=== PATIENT | male | born 1935 | race Hispanic/Latino ===

== ENCOUNTER 2018-12-30 22:24 | Inpatient (IN) | payer MEDICARE ==
[2018-12-30 23:09] LABS: BASO % 0.2 % (0.0-2.0); EOS # 0.1 K/uL (0.0-0.7); EOS % 1.4 % (0.0-4.0); HEMOGLOBIN 13.8 g/dL (12.0-18.0); LYMPH # 0.4 K/uL (1.0-4.3); LYMPH % 4.6 % (20.0-40.0); MEAN CELL VOLUME 92.6 fL (80.0-94.0); MEAN CORPUSCULAR HEMOGLOBIN 30.7 pg (27.0-31.0); MEAN CORPUSCULAR HGB CONC 33.2 g/dL (33.0-37.0); MEAN PLATELET VOLUME 7.7 fL (7.2-11.7); MONO # 0.4 K/uL (0.0-0.8); MONO % 5.1 % (0.0-10.0); NEUT # 6.9 K/uL (1.8-7.0); NEUT % 88.7 % (50.0-75.0); NRBC % 0.1 % (0.0-2.0); PLATELET COUNT 146 K/uL (130-400); RBC 4.48 Mil/uL (4.40-5.90); WHITE BLOOD COUNT 7.7 K/uL (4.8-10.8)
[2018-12-30 23:11] LABS: INR 1.1; PROTHROMBIN TIME 11.6 SECONDS (9.7-12.2)
[2018-12-30 23:21] LABS: ALB/GLOB RATIO 1.6 (1.0-2.1); ALBUMIN 4.2 g/dL (3.5-5.0); ALT/SGPT 25 U/L (21-72); AST/SGOT 34 U/L (17-59); BLOOD UREA NITROGEN 31 mg/dL (9-20); CALCIUM 8.7 mg/dl (8.6-10.4); GFR NON-AFRICAN AMERICAN > 60
[2018-12-30 23:55] LABS: BANDS 7 % (0-2); EOSINOPHIL 1 % (0-4); LYMPHOCYTE 3 % (20-40); MONOCYTE 5 % (0-10); NEUTROPHIL 84 % (50-75); PLATELET ESTIMATE NORMAL (NORMAL); TOTAL CELLS COUNTED 100
[2018-12-30 23:56] LABS: HYPOCHROMIC SLIGHT; LARGE PLATELETS PRESENT; MICROCYTOSIS SLIGHT; OVALOCYTES SLIGHT
--- NOTE | 2018-12-31 00:23 | C.PDOC ---
History Of Present Illness 83 year old male is brought to the ED by status post syncopal episode at home today. As per , she cooked liver for lunch and they both ate it. Patient started vomiting a few hours later and while she was cleaning up after him in the living room, she heard a big thump in the other room. reports patient fainted and hit head sustaining abrasion. Patient is currently asymptomatic. Patient denies any headache, dizziness, nausea, vomiting, light headedness, abdominal pain, urinary symptoms, or any other complaints. is concerned because patient has a hx of cardiac disease and bypass surgery. also experienced similar GI symptoms. Time Seen by Provider: 12/30/18 23:47 Chief Complaint (Nursing): Syncope History Per: Patient, Family () History/Exam Limitations: no limitations Onset/Duration Of Symptoms: Hrs Current Symptoms Are (Timing): Still Present Number Of Syncopal Episodes: 1 Fall Associated With With Symptoms: Yes Past Medical History Reviewed: Historical Data, Nursing Documentation, Vital Signs Vital Signs: Last Vital Signs Temp 99.7 F H 12/30/18 22:30 Pulse 84 12/31/18 00:18 Resp 16 12/31/18 00:18 BP 92/64 L 12/31/18 00:18 Pulse Ox 100 12/31/18 00:18 - Medical History PMH: Hyperlipidemia, Hypothyroidism Denies: Chronic Kidney Disease Surgical History: Pacemaker (left side) Family History: States: No Known Family Hx - Social History Hx Alcohol Use: No Hx Substance Use: No - Immunization History Hx Tetanus Toxoid Vaccination: No Hx Influenza Vaccination: No Hx Pneumococcal Vaccination: No Review Of Systems Constitutional: Negative for: Fever, Chills Cardiovascular: Negative for: Chest Pain, Light Headedness Respiratory: Negative for: Shortness of Breath Gastrointestinal: Negative for: Nausea, Vomiting, Abdominal Pain, Diarrhea Neurological: Positive for: Other (syncopal episode ). Negative for: Headache, Dizziness Physical Exam - Physical Exam Appears: Non-toxic, No Acute Distress Skin: Warm, Dry Head: Normacephalic, Abrasion (top of scalp ) Eye(s): bilateral: Normal Inspection Nose: Normal Oral Mucosa: Moist Neck: Normal ROM, Trachea Midline, Supple Chest: Symmetrical Cardiovascular: Rhythm Regular Respiratory: Normal Breath Sounds, No Rales, No Rhonchi, No Wheezing Extremity: Normal ROM Extremity: Bilateral: Normal Color And Temperature, Normal ROM Neurological/Psych: Oriented x3, Normal Speech, Normal Cognition, Normal Motor, Normal Sensation Gait: Steady ED Course And Treatment - Laboratory Results Result Diagrams: 12/30/18 23:00 12/30/18 23:00 Lab Results: PT 11.6 SECONDS (9.7-12.2) 12/30/18 23:00 INR 1.1 12/30/18 23:00 APTT 25 SECONDS (21-34) 12/30/18 23:00 Total Bilirubin 0.5 mg/dL (0.2-1.3) 12/30/18 23:00 AST 34 U/L (17-59) 12/30/18:00 ALT 25 U/L (21-72) 12/30/18:00 Alkaline Phosphatase 61 U/L (38-126) 12/30/18 23:00 Total Protein 6.8 g/dL (6.3-8.3) 12/30/18:00 Albumin 4.2 g/dL (3.5-5.0) 12/30/18: Globulin 2.6 gm/dL (2.2-3.9) 12/30/18 23: Albumin/Globulin Ratio 1.6 (1.0-2.1) 12/30/18 23:00 Lab Interpretation: Abnormal (BUN 31) O2 Sat by Pulse Oximetry: 100 (RA) Pulse Ox Interpretation: Normal - Physician Consult Information Time Consulting Physician Contacted: 01:02 Physician Contacted: Germán Olvera Outcome Of Conversation: Patient to remain in hospital of observation for vomiting with syncope in patient with history of cardiac disease. Medical Decision Making Medical Decision Making: Plan - CT Head - UA - Blood cultures - EKG Disposition - Disposition Disposition: HOSPITALIZED Disposition Time: 01:06 Condition: STABLE - Clinical Impression Clinical Impression: Syncope, Vomiting - Scribe Statement The provider has reviewed the documentation as recorded by the Scribrashawn Fuentes All medical record entries made by the Careyibe were at my direction and personally dictated by me. I have reviewed the chart and agree that the record accurately reflects my personal performance of the history, physical exam, medical decision making, and the department course for this patient. I have also personally directed, reviewed, and agree with the discharge instructions and disposition.
[2018-12-31 00:46] LABS: URINE BILIRUBIN NEGATIVE (NEGATIVE); URINE BLOOD NEGATIVE (NEGATIVE); URINE CLARITY Hazy (Clear); URINE COLOR Yellow (YELLOW); URINE GLUCOSE (UA) NORMAL (Normal); URINE LEUKOCYTE ESTERASE NEG Leu/uL (Negative); URINE PROTEIN 2+ mg/dL (NEGATIVE); URINE UROBILINOGEN NORMAL mg/dL (0.2-1.0)
[2018-12-31] MEDS ORDERED: Sodium Chloride 0.9% 1,000 ML ONE (01:16)
[2018-12-31] MEDS: Sodium Chloride 0.9% 1,000 ML IV SCH ×4 (01:41→21:00)
--- NOTE | 2018-12-31 06:49 | CP.PCM.HP ---
History of Present Illness - History of Present Illness History of Present Illness: 83 year old male presented in ER with an episode of pre syncope with no loss of conscience. As per , she cooked liver for lunch and they both ate it. Patient started vomiting a few hours later and while she was cleaning up after him in the living room, she heard a big thump in the other room. reports patient fainted and hit head sustaining abrasion. Patient is currently asymptomatic. Patient denies any headache, dizziness, nausea, vomiting, light headedness, abdominal pain, urinary symptoms, or any other complaints. is concerned because patient has a hx of cardiac disease and bypass surgery. also experienced similar GI symptoms. Present on Admission - Present on Admission Any Indicators Present on Admission: Yes Review of Systems - Constitutional Constitutional: As Per HPI - EENT Eyes: As Per HPI - Cardiovascular Cardiovascular: As Per HPI - Respiratory Respiratory: As Per HPI Past Patient History - Infectious Disease Hx of Infectious Diseases: None - Past Social History Smoking Status: Former Smoker - CARDIAC Hx Pacemaker: Yes (left side) - PULMONARY Hx Respiratory Disorders: No - NEUROLOGICAL Hx Neurological Disorder: No - HEENT Hx Blind: Yes (legally blind) - RENAL Hx Chronic Kidney Disease: No - ENDOCRINE/METABOLIC Hx Hypothyroidism: Yes - HEMATOLOGICAL/ONCOLOGICAL Hx Blood Disorders: No - INTEGUMENTARY Hx Dermatological Problems: No - MUSCULOSKELETAL/RHEUMATOLOGICAL Hx Musculoskeletal Disorders: No - GASTROINTESTINAL Hx Gastrointestinal Disorders: No - GENITOURINARY/GYNECOLOGICAL Hx Genitourinary Disorders: No - PSYCHIATRIC Hx Substance Use: No - SURGICAL HISTORY Hx Surgeries: Yes Other/Comment: CABG X2. pacemaker insertion - ANESTHESIA Hx Anesthesia: Yes Hx Anesthesia Reactions: No Hx Malignant Hyperthermia: No Meds Allergies/Adverse Reactions: Allergies Allergy/AdvReac Type Severity Reaction Status Date / Time No Known Allergies Allergy Unverified 12/30/18 22:37 Physical Exam - Constitutional Appears: Non-toxic - Head Exam Additional comments: Abrasion in the occipital area - Eye Exam Eye Exam: Normal appearance - ENT Exam ENT Exam: Mucous Membranes Dry - Neck Exam Neck exam: Positive for: Full Rom - Respiratory Exam Respiratory Exam: Clear to Auscultation Bilateral - Cardiovascular Exam Cardiovascular Exam: REGULAR RHYTHM, +S1, +S2 - GI/Abdominal Exam GI & Abdominal Exam: Normal Bowel Sounds - Extremities Exam Extremities exam: Positive for: normal inspection - Neurological Exam Neurological exam: Alert, CN II-XII Intact, Oriented x3 - Psychiatric Exam Psychiatric exam: Flat Affect - Skin Skin Exam: Normal Color Results - Vital Signs Recent Vital Signs: Last Vital Signs Temp 99.2 F 12/31/18 02:50 Pulse 80 12/31/18 02:50 Resp 20 12/31/18 02:50 BP 121/70 12/31/18 02:50 Pulse Ox 95 12/31/18 02:50 - Labs Result Diagrams: 12/30/18 23:00 12/31/18 11:13 Labs: Laboratory Results - last 24 hr 12/30/18 12/30/18 12/30/18 22:29 23:00 23:00 WBC 7.7 RBC 4.48 Hgb 13.8 Hct 41.5 MCV 92.6 MCH 30.7 MCHC 33.2 RDW 14.0 Plt Count 146 MPV 7.7 Neut % (Auto) 88.7 H Lymph % (Auto) 4.6 L [place] % (Auto) 5.1 Eos % (Auto) 1.4 Baso % (Auto) 0.2 Neut # (Auto) 6.9 Lymph # (Auto) 0.4 L [place] # (Auto) 0.4 Eos # (Auto) 0.1 Baso # (Auto) 0.0 Neutrophils % (Manual) 84 H Band Neutrophils % 7 H Lymphocytes % (Manual) 3 L Monocytes % (Manual) 5 Eosinophils % (Manual) 1 Platelet Estimate Normal Large Platelets Present Hypochromasia (manual) Slight Microcytosis (manual) Slight Ovalocytes Slight PT 11.6 INR 1.1 APTT 25 Sodium Potassium Chloride Carbon Dioxide Anion Gap BUN Creatinine Est GFR ( Amer) Est GFR (Non-Af Amer) POC Glucose (mg/dL) 96 Random Glucose Calcium Total Bilirubin AST ALT Alkaline Phosphatase Total Protein Albumin Globulin Albumin/Globulin Ratio Urine Color Urine Clarity Urine pH Ur Specific [place] Urine Protein Urine Glucose (UA) Urine Ketones Urine Blood Urine Nitrate Urine Bilirubin Urine Urobilinogen Ur Leukocyte Esterase Urine WBC (Auto) Urine RBC (Auto) Hyaline Casts 12/30/18 12/31/18 23:00 00:35 WBC RBC Hgb Hct MCV MCH MCHC RDW Plt Count MPV Neut % (Auto) Lymph % (Auto) [place] % (Auto) Eos % (Auto) Baso % (Auto) Neut # (Auto) Lymph # (Auto) [place] # (Auto) Eos # (Auto) Baso # (Auto) Neutrophils % (Manual) Band Neutrophils % Lymphocytes % (Manual) Monocytes % (Manual) Eosinophils % (Manual) Platelet Estimate Large Platelets Hypochromasia (manual) Microcytosis (manual) Ovalocytes PT INR APTT Sodium 135 Potassium 4.8 Chloride 97 L Carbon Dioxide 28 Anion Gap 15 BUN 31 H Creatinine 1.0 Est GFR ( Amer) > 60 Est GFR (Non-Af Amer) > 60 POC Glucose (mg/dL) Random Glucose 116 H Calcium 8.7 Total Bilirubin 0.5 AST 34 ALT 25 Alkaline Phosphatase 61 Total Protein 6.8 Albumin 4.2 Globulin 2.6 Albumin/Globulin Ratio 1.6 Urine Color Yellow Urine Clarity Hazy Urine pH 6.0 Ur Specific [place] 1.018 Urine Protein 2+ H Urine Glucose (UA) Normal Urine Ketones Trace Urine Blood Negative Urine Nitrate Negative Urine Bilirubin Negative Urine Urobilinogen Normal Ur Leukocyte Esterase Neg Urine WBC (Auto) 1 Urine RBC (Auto) 5 H Hyaline Casts 3-5 H Assessment & Plan (1) Right hand weakness Status: Acute (2) Syncope Status: Acute (3) Vomiting Status: Acute (4) CAD (coronary artery disease) Status: Chronic (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
--- NOTE | 2018-12-31 08:06 | CT ---
Date of service: 12/31/2018 PROCEDURE: CT HEAD WITHOUT CONTRAST. HISTORY: Altered mental status COMPARISON: None available. TECHNIQUE: Axial computed tomography images were obtained through the head/brain without intravenous contrast. Radiation dose: Total exam DLP = 936.51 mGy-cm. This CT exam was performed using one or more of the following dose reduction techniques: Automated exposure control, adjustment of the mA and/or kV according to patient size, and/or use of iterative reconstruction technique. FINDINGS: HEMORRHAGE: No intracranial hemorrhage. BRAIN: No mass effect or edema. Scattered focal lucencies in the subcortical and periventricular white matter suggestive for chronic microvascular ischemic change. Dense bilateral basal ganglia calcifications. Focal area of confluent low attenuation seen within the left external capsule/insular region on series 4, image 25 which may represent chronic ischemic change. Diffuse generalized parenchymal atrophy. VENTRICLES: Unremarkable. No hydrocephalus. CALVARIUM: Unremarkable. PARANASAL SINUSES: Grossly preserved. MASTOID AIR CELLS: Partial sclerosis of the left mastoid air cells. OTHER FINDINGS: Soft tissue swelling overlying the anterior frontal regions. IMPRESSION: No acute intracranial abnormality. Chronic microvascular ischemic changes. Bilateral basal ganglia calcifications. Probable small area of chronic ischemic change seen within the left external capsule/insula. If symptoms persists, consider correlation with MRI. A preliminary report was generated at 1:26 a.m. on 12/31/[address] Mary Ann Cornejo from [facility].
[2018-12-31] MEDS ORDERED: Home Med 1 UNIT (Alendronate [Fosamax] 70 MG) PO SCH (10:00)
[2018-12-31] MEDS ORDERED: OLMESARTAN MEDOXOMIL 5 MG PO SCH (10:00)
[2018-12-31] MEDS: Omega-3-Acid Ethyl Esters 1 GM Cap PO SCH (10:34)
[2018-12-31] MEDS: Levothyroxine 75 MCG TAB PO SCH (10:34)
[2018-12-31 11:31] LABS: BLOOD UREA NITROGEN 27 mg/dL (9-20); CALCIUM 8.5 mg/dl (8.6-10.4); GFR NON-AFRICAN AMERICAN > 60
--- NOTE | 2018-12-31 15:21 | CP.PCM.CON ---
History of Present Illness - History of Present Illness History of Present Illness: Neurology Consultation Note: Consult requested by Dr. Olvera Mr. Segundo is an 83-year-old man with a past medical history of cardiac disease, who had an episode of vomiting yesterday, light-headedness and fell to the ground, "fainted" according to , and hit his head. He then woke up and was back to baseline with no residual change in mental status. There was no confusion, loss of bowel/urine or tongue biting noted. The patient was examined and found to have some right arm pain/weakness today. Neurology was consulted to assist with the management and care. 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 When I saw the patient, he said that he has had right hand weakness for months and it is mostly limited to his thumb and index finger. Otherwise he had no complaints. Review of Systems - Review of Systems All systems: reviewed and no additional remarkable complaints except Past Patient History - Infectious Disease Hx of Infectious Diseases: None - Past Social History Smoking Status: Former Smoker - CARDIAC Hx Pacemaker: Yes (left side) - PULMONARY Hx Respiratory Disorders: No - NEUROLOGICAL Hx Neurological Disorder: No - HEENT Hx Blind: Yes (legally blind) - RENAL Hx Chronic Kidney Disease: No - ENDOCRINE/METABOLIC Hx Hypothyroidism: Yes - HEMATOLOGICAL/ONCOLOGICAL Hx Blood Disorders: No - INTEGUMENTARY Hx Dermatological Problems: No - MUSCULOSKELETAL/RHEUMATOLOGICAL Hx Musculoskeletal Disorders: No - GASTROINTESTINAL Hx Gastrointestinal Disorders: No - GENITOURINARY/GYNECOLOGICAL Hx Genitourinary Disorders: No - PSYCHIATRIC Hx Substance Use: No - SURGICAL HISTORY Hx Surgeries: Yes Other/Comment: CABG X2. pacemaker insertion - ANESTHESIA Hx Anesthesia: Yes Hx Anesthesia Reactions: No Hx Malignant Hyperthermia: No Meds Allergies/Adverse Reactions: Allergies Allergy/AdvReac Type Severity Reaction Status Date / Time No Known Allergies Allergy Unverified 12/30/18 22:37 - Medications Medications: Current Medications Clopidogrel Bisulfate (Plavix) 75 mg PO DAILY [facility] Last Admin: 12/31/18 10:34 Dose: 75 mg Famotidine (Pepcid) 20 mg PO BID [facility] Last Admin: 12/31/18 14:00 Dose: 20 mg Sodium Chloride (Sodium Chloride 0.9%) 1,000 mls @ 100 mls/hr IV .Q10H [facility] Last Admin: 12/31/18 14:05 Dose: Not Given Levothyroxine Sodium (Synthroid) 75 mcg PO DAILY [facility] Last Admin: 12/31/18 10:34 Dose: 75 mcg Fyriu-7-Apzv Ethyl Esters (Lovaza) 1 gm PO DAILY [facility] Last Admin: 12/31/18 10:34 Dose: 1 gm Pneumococcal Polyvalent Vaccine (Pneumovax 23 Vaccine) 0.5 ml IM .ONCE ONE Stop: 01/02/19 10:01 Rosuvastatin Calcium (Crestor) 5 mg PO [facility] Physical Exam - Constitutional Appears: Well - Head Exam Head Exam: ATRAUMATIC, NORMAL INSPECTION, NORMOCEPHALIC - Eye Exam Eye Exam: EOMI, Normal appearance, PERRL Pupil Exam: NORMAL ACCOMODATION, PERRL - ENT Exam ENT Exam: Mucous Membranes Moist, Normal Exam - Neck Exam Neck exam: Positive for: Normal Inspection - Respiratory Exam Respiratory Exam: Clear to Auscultation Bilateral, NORMAL BREATHING PATTERN - Cardiovascular Exam Cardiovascular Exam: REGULAR RHYTHM, +S1, +S2 - GI/Abdominal Exam GI & Abdominal Exam: Normal Bowel Sounds, Soft. absent: Tenderness - Extremities Exam Extremities exam: Positive for: normal inspection - Back Exam Back exam: NORMAL INSPECTION - Neurological Exam Neurological exam: Alert, CN II-XII Intact, Normal Gait, Oriented x3, Reflexes Normal Additional comments: Right upper extremity has weakness in thumb, index and middle finger. Sensation is intact to LT throughout. No pronator drift noted, coordination is intact, reflexes are normal. - Psychiatric Exam Psychiatric exam: Normal Affect, Normal Mood - Skin Skin Exam: Dry, Intact, Normal Color, Warm Results - Vital Signs Recent Vital Signs: Last Vital Signs Temp 99.1 F 12/31/18 07:39 Pulse 83 12/31/18 07:39 Resp 20 12/31/18 07:39 BP 108/67 12/31/18 07:39 Pulse Ox 95 12/31/18 14:46 - Labs Result Diagrams: 12/30/18 23:00 12/31/18 11:13 Labs: Laboratory Results - last 24 hr 12/30/18 12/30/18 12/30/18 22:29 23:00 23:00 WBC 7.7 RBC 4.48 Hgb 13.8 Hct 41.5 MCV 92.6 MCH 30.7 MCHC 33.2 RDW 14.0 Plt Count 146 MPV 7.7 Neut % (Auto) 88.7 H Lymph % (Auto) 4.6 L [place] % (Auto) 5.1 Eos % (Auto) 1.4 Baso % (Auto) 0.2 Neut # (Auto) 6.9 Lymph # (Auto) 0.4 L [place] # (Auto) 0.4 Eos # (Auto) 0.1 Baso # (Auto) 0.0 Neutrophils % (Manual) 84 H Band Neutrophils % 7 H Lymphocytes % (Manual) 3 L Monocytes % (Manual) 5 Eosinophils % (Manual) 1 Platelet Estimate Normal Large Platelets Present Hypochromasia (manual) Slight Microcytosis (manual) Slight Ovalocytes Slight PT 11.6 INR 1.1 APTT 25 Sodium Potassium Chloride Carbon Dioxide Anion Gap BUN Creatinine Est GFR ( Amer) Est GFR (Non-Af Amer) POC Glucose (mg/dL) 96 Random Glucose Calcium Total Bilirubin AST ALT Alkaline Phosphatase Troponin I Total Protein Albumin Globulin Albumin/Globulin Ratio TSH 3rd Generation Urine Color Urine Clarity Urine pH Ur Specific [place] Urine Protein Urine Glucose (UA) Urine Ketones Urine Blood Urine Nitrate Urine Bilirubin Urine Urobilinogen Ur Leukocyte Esterase Urine WBC (Auto) Urine RBC (Auto) Hyaline Casts 12/30/18 12/31/18 12/31/18 23:00 00:35 11:13 WBC RBC Hgb Hct MCV MCH MCHC RDW Plt Count MPV Neut % (Auto) Lymph % (Auto) [place] % (Auto) Eos % (Auto) Baso % (Auto) Neut # (Auto) Lymph # (Auto) [place] # (Auto) Eos # (Auto) Baso # (Auto) Neutrophils % (Manual) Band Neutrophils % Lymphocytes % (Manual) Monocytes % (Manual) Eosinophils % (Manual) Platelet Estimate Large Platelets Hypochromasia (manual) Microcytosis (manual) Ovalocytes PT INR APTT Sodium 135 137 Potassium 4.8 4.9 Chloride 97 L 101 Carbon Dioxide 28 27 Anion Gap 15 15 BUN 31 H 27 H Creatinine 1.0 1.0 Est GFR ( Amer) > 60 > 60 Est GFR (Non-Af Amer) > 60 > 60 POC Glucose (mg/dL) Random Glucose 116 H 108 Calcium 8.7 8.5 L Total Bilirubin 0.5 AST 34 ALT 25 Alkaline Phosphatase 61 Troponin I < 0.0120 Total Protein 6.8 Albumin 4.2 Globulin 2.6 Albumin/Globulin Ratio 1.6 TSH 3rd Generation 2.06 Urine Color Yellow Urine Clarity Hazy Urine pH 6.0 Ur Specific [place] 1.018 Urine Protein 2+ H Urine Glucose (UA) Normal Urine Ketones Trace Urine Blood Negative Urine Nitrate Negative Urine Bilirubin Negative Urine Urobilinogen Normal Ur Leukocyte Esterase Neg Urine WBC (Auto) 1 Urine RBC (Auto) 5 H Hyaline Casts 3-5 H Assessment & Plan (1) Right hand weakness Assessment and Plan: This appears to be chronic and may be related to median neuropathy or could be affected by the previous left external capsule lacunar infarct. I recommend con tinuing stroke prevention with Plavix and Crestor. He can have an outpatient EMG/NCS for further evaluation. PT/OT eval is also recommended. Thank you for this consultation. Status: Acute
[2018-12-31] MEDS: Silver Sulfadiazine 1% Cream (20 gm) TOP SCH (18:51)
--- NOTE | 2018-12-31 19:47 | CP.PCM.CON ---
History of Present Illness - History of Present Illness History of Present Illness: Cardiology consult Covering Dr. Harden Re: syncope Chart old records imaging and telemetry were reviewed Patient seen interviewed and examined Mr. Manzanares was admitted with history of vomiting and transient loss of consciousness without preceding chest pain dyspbnea palpitations dipahoresis vertigo headache seizures Post admission was ruled out for an MD Currently feels good Past medical: Systemic hypertension Hyperlipidemia Kidney disease Past surgery: Pacemaker implant Mediations: reviewed Labs: noted EKG: sinus rhythm Pacemaker: interrogation: no events; normal pace sense and capture and generator parameters A/P Transient loss of consciousness of unclear mechanism; would assume a hemodynamic event; the trigger for the latter is a 'peripheral' process; a normal physical exam (cardiac) and an uneventful pacemaker interrogation argues against a primary cardiac event; vomiting related neurally mediated reflex and or hypovolemia are possible etiological candidates Plan Fall precautions Hydration Elastic pressured stockings 15mmHg Follow up with Dr. Fina LARRY patient issues and prognosis and follow up Past Patient History - Infectious Disease Hx of Infectious Diseases: None - Past Social History Smoking Status: Former Smoker - CARDIAC Hx Pacemaker: Yes (left side) - PULMONARY Hx Respiratory Disorders: No - NEUROLOGICAL Hx Neurological Disorder: No - HEENT Hx Blind: Yes (legally blind) - RENAL Hx Chronic Kidney Disease: No - ENDOCRINE/METABOLIC Hx Hypothyroidism: Yes - HEMATOLOGICAL/ONCOLOGICAL Hx Blood Disorders: No - INTEGUMENTARY Hx Dermatological Problems: No - MUSCULOSKELETAL/RHEUMATOLOGICAL Hx Musculoskeletal Disorders: No - GASTROINTESTINAL Hx Gastrointestinal Disorders: No - GENITOURINARY/GYNECOLOGICAL Hx Genitourinary Disorders: No - PSYCHIATRIC Hx Substance Use: No - SURGICAL HISTORY Hx Surgeries: Yes Other/Comment: CABG X2. pacemaker insertion - ANESTHESIA Hx Anesthesia: Yes Hx Anesthesia Reactions: No Hx Malignant Hyperthermia: No Meds Allergies/Adverse Reactions: Allergies Allergy/AdvReac Type Severity Reaction Status Date / Time No Known Allergies Allergy Unverified 12/30/18 22:37 - Medications Medications: Current Medications Clopidogrel Bisulfate (Plavix) 75 mg PO DAILY [facility] Last Admin: 12/31/18 10:34 Dose: 75 mg Famotidine (Pepcid) 20 mg PO BID [facility] Last Admin: 12/31/18 17:30 Dose: Not Given Sodium Chloride (Sodium Chloride 0.9%) 1,000 mls @ 100 mls/hr IV .Q10H [facility] Last Admin: 12/31/18 14:05 Dose: Not Given Levothyroxine Sodium (Synthroid) 75 mcg PO DAILY [facility] Last Admin: 12/31/18 10:34 Dose: 75 mcg Svlgz-[id number]-[id number] Ethyl Esters (Lovaza) 1 gm PO DAILY [facility] Last Admin: 12/31/18 10:34 Dose: 1 gm Pneumococcal Polyvalent Vaccine (Pneumovax 23 Vaccine) 0.5 ml IM .ONCE ONE Stop: 01/02/19 10:01 Rosuvastatin Calcium (Crestor) 5 mg PO [facility] Silver Sulfadiazine (Silvadene 1% 20 Gm) 0 ea TOP DAILY [facility] Last Admin: 12/31/18 18:51 Dose: 1 applic Results - Vital Signs Recent Vital Signs: Last Vital Signs Temp 100.8 F H 12/31/18 17:03 Pulse 79 12/31/18 17:03 Resp 20 12/31/18 17:03 BP 112/66 12/31/18 17:03 Pulse Ox 95 12/31/18 17:03 - Labs Result Diagrams: 12/30/18 23:00 12/31/18 11:13 Labs: Laboratory Results - last 24 hr 12/30/18 12/30/18 12/30/18 22:29 23:00 23:00 WBC 7.7 RBC 4.48 Hgb 13.8 Hct 41.5 MCV 92.6 MCH 30.7 MCHC 33.2 RDW 14.0 Plt Count 146 MPV 7.7 Neut % (Auto) 88.7 H Lymph % (Auto) 4.6 L [place] % (Auto) 5.1 Eos % (Auto) 1.4 Baso % (Auto) 0.2 Neut # (Auto) 6.9 Lymph # (Auto) 0.4 L [place] # (Auto) 0.4 Eos # (Auto) 0.1 Baso # (Auto) 0.0 Neutrophils % (Manual) 84 H Band Neutrophils % 7 H Lymphocytes % (Manual) 3 L Monocytes % (Manual) 5 Eosinophils % (Manual) 1 Platelet Estimate Normal Large Platelets Present Hypochromasia (manual) Slight Microcytosis (manual) Slight Ovalocytes Slight PT 11.6 INR 1.1 APTT 25 Sodium Potassium Chloride Carbon Dioxide Anion Gap BUN Creatinine Est GFR ( Amer) Est GFR (Non-Af Amer) POC Glucose (mg/dL) 96 Random Glucose Calcium Total Bilirubin AST ALT Alkaline Phosphatase Troponin I Total Protein Albumin Globulin Albumin/Globulin Ratio TSH 3rd Generation Urine Color Urine Clarity Urine pH Ur Specific [place] Urine Protein Urine Glucose (UA) Urine Ketones Urine Blood Urine Nitrate Urine Bilirubin Urine Urobilinogen Ur Leukocyte Esterase Urine WBC (Auto) Urine RBC (Auto) Hyaline Casts 12/30/18 12/31/18 12/31/18 23:00 00:35 11:13 WBC RBC Hgb Hct MCV MCH MCHC RDW Plt Count MPV Neut % (Auto) Lymph % (Auto) [place] % (Auto) Eos % (Auto) Baso % (Auto) Neut # (Auto) Lymph # (Auto) [place] # (Auto) Eos # (Auto) Baso # (Auto) Neutrophils % (Manual) Band Neutrophils % Lymphocytes % (Manual) Monocytes % (Manual) Eosinophils % (Manual) Platelet Estimate Large Platelets Hypochromasia (manual) Microcytosis (manual) Ovalocytes PT INR APTT Sodium 135 137 Potassium 4.8 4.9 Chloride 97 L 101 Carbon Dioxide 28 27 Anion Gap 15 15 BUN 31 H 27 H Creatinine 1.0 1.0 Est GFR ( Amer) > 60 > 60 Est GFR (Non-Af Amer) > 60 > 60 POC Glucose (mg/dL) Random Glucose 116 H 108 Calcium 8.7 8.5 L Total Bilirubin 0.5 AST 34 ALT 25 Alkaline Phosphatase 61 Troponin I < 0.0120 Total Protein 6.8 Albumin 4.2 Globulin 2.6 Albumin/Globulin Ratio 1.6 TSH 3rd Generation 2.06 Urine Color Yellow Urine Clarity Hazy Urine pH 6.0 Ur Specific [place] 1.018 Urine Protein 2+ H Urine Glucose (UA) Normal Urine Ketones Trace Urine Blood Negative Urine Nitrate Negative Urine Bilirubin Negative Urine Urobilinogen Normal Ur Leukocyte Esterase Neg Urine WBC (Auto) 1 Urine RBC (Auto) 5 H Hyaline Casts 3-5 H
[2019-01-01] MEDS: Sodium Chloride 0.9% 1,000 ML IV SCH ×4 (01:00→21:00)
[2019-01-01] MEDS: Omega-3-Acid Ethyl Esters 1 GM Cap PO SCH (09:47)
[2019-01-01] MEDS: Silver Sulfadiazine 1% Cream (20 gm) TOP SCH (09:47)
[2019-01-01] MEDS: Levothyroxine 75 MCG TAB PO SCH (09:47)
[2019-01-01] MEDS ORDERED: Iohexol 240 (50 ml) PO ONE (10:30)
[2019-01-01 11:51] LABS: BASO % 0.7 % (0.0-2.0); EOS % 0.9 % (0.0-4.0); HEMOGLOBIN 12.9 g/dL (12.0-18.0); LYMPH # 0.6 K/uL (1.0-4.3); LYMPH % 18.8 % (20.0-40.0); MEAN CORPUSCULAR HEMOGLOBIN 31.6 pg (27.0-31.0); MEAN CORPUSCULAR HGB CONC 33.3 g/dL (33.0-37.0); MEAN PLATELET VOLUME 8.1 fL (7.2-11.7); MONO # 0.6 K/uL (0.0-0.8); MONO % 17.4 % (0.0-10.0); NEUT # 2.1 K/uL (1.8-7.0); NEUT % 62.2 % (50.0-75.0); NRBC % 0.1 % (0.0-2.0); RBC 4.07 Mil/uL (4.40-5.90); RED CELL DISTRIBUTION WIDTH 13.8 % (11.5-14.5)
[2019-01-01 12:02] LABS: ALB/GLOB RATIO 1.5 (1.0-2.1); ALBUMIN 3.4 g/dL (3.5-5.0); ALT/SGPT 17 U/L (21-72); AMYLASE 36 U/L (30-110); AST/SGOT 29 U/L (17-59); BLOOD UREA NITROGEN 19 mg/dL (9-20); CALCIUM 7.4 mg/dl (8.6-10.4); GFR NON-AFRICAN AMERICAN > 60; LIPASE < 10 U/L (23-300)
[2019-01-01 12:07] LABS: WHITE BLOOD COUNT 3.4 K/uL (4.8-10.8)
--- NOTE | 2019-01-01 14:46 | CT ---
PROCEDURE: CT Abdomen and Pelvis without IV contrast. HISTORY: abdominal pain COMPARISON: None available TECHNIQUE: Contiguous axial images of the abdomen and pelvis. Oral contrast was administered. No IV contrast given. Coronal and Sagittal reformats generated and reviewed. Radiation dose: Total exam DLP = 473.43 mGy-cm. This CT exam was performed using one or more of the following dose reduction techniques: Automated exposure control, adjustment of the mA and/or kV according to patient size, and/or use of iterative reconstruction technique. FINDINGS: There is limited evaluation of the solid organs without the administration of IV contrast. LOWER THORAX: Trace effusions. Bibasilar atelectasis. No visible pneumothorax. Visualized portions of the heart appear within normal limits of size. Median sternotomy wires. Pacer wires. LIVER: Unremarkable unenhanced appearance. GALLBLADDER AND BILE DUCTS: Cholecystectomy. PANCREAS: Fatty atrophy of the pancreas. SPLEEN: Unremarkable unenhanced appearance. ADRENALS: Unremarkable unenhanced appearance. KIDNEYS AND URETERS: No hydronephrosis or obstructing renal calculus. BLADDER: The urinary bladder appears unremarkable. REPRODUCTIVE: Enlarged prostate gland measures approximately 4.0 x 5.2 cm. APPENDIX: Appendix is not identified. BOWEL: The stomach is nondistended. The bowel loops appear within normal limits of caliber without evidence of intestinal obstruction. Markedly thick-walled small bowel in the left abdomen (for example series 3, image 111); correlate clinically for enteritis. PERITONEUM: Small pelvic free fluid extending to the cecal base. No definite free air. LYMPH NODES: No bulky lymphadenopathy identified. VASCULATURE: Severe infrarenal abdominal aortic aneurysm measures approximately 8.6 x 8.7 x 11.0 cm (AP by transverse by CC dimensions). Atherosclerotic calcifications of the aorta and branches. BONES: Degenerative changes. Abnormal sclerotic and lucent appearance of the left pelvis with cortical thickening; correlate clinically for possibility of Paget's disease. OTHER FINDINGS: None. IMPRESSION: Severe infrarenal abdominal aortic aneurysm measures approximately 8.6 x 8.7 x 11.0 cm; luminal contents appear heterogeneous; lack of IV contrast precludes adequate evaluation for dissection, however there is no evidence of extra luminal fluid or displaced calcified intima. Markedly thick-walled small bowel in the left abdomen; correlate clinically for enteritis. Small pelvic fluid. Enlarged prostate gland. Recommend correlation with PSA. Abnormal appearance of the left pelvis raises concern for Paget's disease. Correlate clinically. Emergent findings discussed with the patient's LESLYE Tirado on 01/01/19 at 2:22 p.m.
--- NOTE | 2019-01-01 15:49 | CP.PCM.CON ---
History of Present Illness - History of Present Illness History of Present Illness: Vascular Surgery Consult Note for Dr. Jerry. 83 year old male with PMHx of CAD requiring bypass surgery, HLD, hypothyroid, paget disease of the bone admitted for nausea, vomiting and syncopal episode. Vascular surgery was consulted for finding of infrarenal AAA measuring 8.6x 8.7x 11cm on CT abdomen. Patient denies abdominal pain, back pain, chest pain, shortness of breath, fever and chills. He only complains of heart burn with eating. Patient has a 80 pack year smoking history. As per patient's , he has had abdominal ultrasounds in the past to screen for AAA, the last being 6 years ago which was reportedly unremarkable. PMHx: CAD, HLD, hypothyroid, paget disease of the bone PSHx: cardiac bypass (1999), cholecystectomy (2006), pacemaker (2016) Allergies: NKDA Meds: Plavix, Benicar, Fosamax, [place] 3, Levothyroxine Social: smoked 2ppd for 40 years, quit in 1999; denies alcohol and illicit drugs Family Hx: son of [place] at 30 years old Review of Systems - Review of Systems All systems: reviewed and no additional remarkable complaints except (as per HPI) Past Patient History - Infectious Disease Hx of Infectious Diseases: None - Past Social History Smoking Status: Former Smoker - CARDIAC Hx Pacemaker: Yes (left side) - PULMONARY Hx Respiratory Disorders: No - NEUROLOGICAL Hx Neurological Disorder: No - HEENT Hx Blind: Yes (legally blind) - RENAL Hx Chronic Kidney Disease: No - ENDOCRINE/METABOLIC Hx Hypothyroidism: Yes - HEMATOLOGICAL/ONCOLOGICAL Hx Blood Disorders: No - INTEGUMENTARY Hx Dermatological Problems: No - MUSCULOSKELETAL/RHEUMATOLOGICAL Hx Musculoskeletal Disorders: No - GASTROINTESTINAL Hx Gastrointestinal Disorders: No - GENITOURINARY/GYNECOLOGICAL Hx Genitourinary Disorders: No - PSYCHIATRIC Hx Substance Use: No - SURGICAL HISTORY Hx Surgeries: Yes Other/Comment: CABG X2. pacemaker insertion - ANESTHESIA Hx Anesthesia: Yes Hx Anesthesia Reactions: No Hx Malignant Hyperthermia: No Meds Allergies/Adverse Reactions: Allergies Allergy/AdvReac Type Severity Reaction Status Date / Time No Known Allergies Allergy Unverified 12/30/18 22:37 - Medications Medications: Current Medications Clopidogrel Bisulfate (Plavix) 75 mg PO DAILY [facility] Last Admin: 03/01/19 09:47 Dose: Not Given Famotidine (Pepcid) 20 mg PO BID [facility] Last Admin: 01/01/19 09:47 Dose: 20 mg Sodium Chloride (Sodium Chloride 0.9%) 1,000 mls @ 100 mls/hr IV .Q10H [facility] Last Admin: 01/01/19 07:00 Dose: Not Given Levothyroxine Sodium (Synthroid) 75 mcg PO DAILY@0630 [facility] Holmn-2-Qlci Ethyl Esters (Lovaza) 1 gm PO DAILY [facility] Last Admin: 01/01/19 09:47 Dose: Not Given Pneumococcal Polyvalent Vaccine (Pneumovax 23 Vaccine) 0.5 ml IM .ONCE ONE Stop: 01/02/19 10:01 Rosuvastatin Calcium (Crestor) 5 mg PO HS [facility] Last Admin: 12/31/18 21:49 Dose: 5 mg Silver Sulfadiazine (Silvadene 1% 20 Gm) 0 ea TOP DAILY [facility] Last Admin: 01/01/19 09:47 Dose: 1 applic Physical Exam - Constitutional Appears: Non-toxic, No Acute Distress - Head Exam Head Exam: ATRAUMATIC, NORMOCEPHALIC - Eye Exam Eye Exam: EOMI, PERRL - ENT Exam ENT Exam: Mucous Membranes Moist - Neck Exam Neck exam: Positive for: Normal Inspection - Respiratory Exam Respiratory Exam: NORMAL BREATHING PATTERN. absent: Accessory Muscle Use, Rales, Rhonchi, Wheezes, Respiratory Distress - Cardiovascular Exam Cardiovascular Exam: REGULAR RHYTHM, +S1, +S2 Additional comments: well healed sternotomy scar - GI/Abdominal Exam GI & Abdominal Exam: Normal Bowel Sounds, Soft. absent: Distended, Firm, Guarding, Rebound, Rigid, Tenderness Additional comments: Pulsatile mass palpated in the left abdomen. Well healed RUQ surgical scar. - Extremities Exam Extremities exam: Positive for: full ROM, normal inspection, pedal pulses presen t. Negative for: calf tenderness, pedal edema - Neurological Exam Neurological exam: Alert, Oriented x3 - Psychiatric Exam Psychiatric exam: Normal Affect, Normal Mood - Skin Skin Exam: Dry, Normal Color, Warm Additional comments: dressing to top of scalp noted with dried blood. Results - Vital Signs Recent Vital Signs: Last Vital Signs Temp 98.7 F 01/01/19 07:40 Pulse 81 01/01/19 07:40 Resp 20 01/01/19 07:40 BP 121/72 01/01/19 07:40 Pulse Ox 95 01/01/19 08:38 - Labs Result Diagrams: 01/01/19 11:31 01/01/19 11:31 Labs: Laboratory Results - last 24 hr 01/01/19 01/01/19 11:31 11:31 WBC 3.4 L D RBC 4.07 L Hgb 12.9 Hct 38.7 MCV 95.0 H D MCH 31.6 H MCHC 33.3 RDW 13.8 Plt Count 133 MPV 8.1 Neut % (Auto) 62.2 Lymph % (Auto) 18.8 L [place] % (Auto) 17.4 H Eos % (Auto) 0.9 Baso % (Auto) 0.7 Neut # (Auto) 2.1 Lymph # (Auto) 0.6 L [place] # (Auto) 0.6 Eos # (Auto) 0.0 Baso # (Auto) 0.0 Sodium 132 Potassium 4.1 Chloride 103 Carbon Dioxide 22 Anion Gap 11 BUN 19 Creatinine 0.9 Est GFR ( Amer) > 60 Est GFR (Non-Af Amer) > 60 Random Glucose 101 Calcium 7.4 L Phosphorus 2.9 Magnesium 1.9 Total Bilirubin 0.5 AST 29 ALT 17 L D Alkaline Phosphatase 50 Total Protein 5.7 L Albumin 3.4 L Globulin 2.3 Albumin/Globulin Ratio 1.5 Amylase 36 Lipase < 10 L Assessment & Plan - Assessment and Plan (Free Text) Assessment: 83 year old male with 8.6x 8.7x 11cm infrarenal AAA Plan: f/u dissection study discuss surgical options with patient Further recs as per Dr. Jerry. Joy Morales, PGY-1
[2019-01-01] MEDS ORDERED: Iodixanol 320 MG/ML 100 ML BOTTLE IV ONE (16:35)
--- NOTE | 2019-01-01 16:47 | CP.PCM.PN ---
Subjective - Date & Time of Evaluation Date of Evaluation: 01/01/19 Time of Evaluation: 16:52 - Subjective Subjective: Patient started to c/o abdominal pain. A CT scan reveled a large aneurism 8x8x11 [address] Will follow [address] scan with contrast to r/o dissection. Surgical consult appreciated. Aggressive control of BP . will follow Objective - Vital Signs/Intake and Output Vital Signs (last 24 hours): Temp Pulse Resp BP Pulse Ox 98.1 F 70 20 122/74 95 01/01/19 16:00 01/01/19 16:00 01/01/19 16:00 01/01/19 16:00 01/01/19 16:00 Intake and Output: 01/01/19 01/01/19 11:59 23:59 Intake Total 950 800 Output Total 300 Balance 650 800 - Medications Medications: Current Medications Clopidogrel Bisulfate (Plavix) 75 mg PO DAILY [facility] Last Admin: 01/01/19 09:47 Dose: Not Given Famotidine (Pepcid) 20 mg PO BID [facility] Last Admin: 01/01/19 09:47 Dose: 20 mg Sodium Chloride (Sodium Chloride 0.9%) 1,000 mls @ 100 mls/hr IV .Q10H [facility] Last Admin: 01/01/19 07:00 Dose: Not Given Levothyroxine Sodium (Synthroid) 75 mcg PO DAILY@0630 [facility] Uapyw-5-Peoy Ethyl Esters (Lovaza) 1 gm PO DAILY [facility] Last Admin: 01/01/19 09:47 Dose: Not Given Pneumococcal Polyvalent Vaccine (Pneumovax 23 Vaccine) 0.5 ml IM .ONCE ONE Stop: 01/04/19 10:01 Rosuvastatin Calcium (Crestor) 5 mg PO HS [facility] Last Admin: 12/31/18 21:49 Dose: 5 mg Silver Sulfadiazine (Silvadene 1% 20 Gm) 0 ea TOP DAILY [facility] Last Admin: 01/01/19 09:47 Dose: 1 applic - Labs Labs: 01/01/19 11:31 01/01/19 11:31 PT 11.6 SECONDS (9.7-12.2) 12/30/18 23:00 INR 1.1 12/30/18 23:00 APTT 25 SECONDS (21-34) 12/30/18 23:00 - Constitutional Appears: Chronically Ill - Head Exam Head Exam: NORMOCEPHALIC - Eye Exam Eye Exam: Normal appearance - ENT Exam ENT Exam: Mucous Membranes Moist - Neck Exam Neck Exam: Full ROM - Respiratory Exam Respiratory Exam: Decreased Breath Sounds - Cardiovascular Exam Cardiovascular Exam: REGULAR RHYTHM, +S1, +S2 - GI/Abdominal Exam GI & Abdominal Exam: Normal Bowel Sounds - Extremities Exam Extremities Exam: Full ROM - Neurological Exam Neurological Exam: Alert, Awake, CN II-XII Intact, Oriented x3 - Psychiatric Exam Psychiatric exam: Depressed, Flat Affect - Skin Skin Exam: Pallor Assessment and Plan (1) Right hand weakness Status: Acute (2) Syncope Status: Acute (3) Vomiting Status: Acute (4) CAD (coronary artery disease) Status: Chronic (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 (7) Aortic aneurysm Status: Acute (8) Abdominal pain Status: Acute (9) Leukopenia Status: Acute
--- NOTE | 2019-01-01 18:17 | CT ---
Date of service: 01/01/2019 CT Dissection protocol Indication: r/o dissection Technique: Contiguous axial images were obtained through the chest/abdomen/pelvis without and with intravenous contrast enhancement utilizing dissection protocol technique. Sagittal and coronal reconstructions were generated and reviewed. This CT exam was performed using 1 or more of the following dose reduction techniques: Automated exposure control, adjustment of the MAA and/or kV according to patient size, and/or use of iterative reconstruction technique. Radiation dose (DLP): 3239.65 MGy-cm. Contrast: 100 mL Visipaque 320 IV Findings: Visualized portions of the inferior thyroid gland appear unremarkable. The mediastinal and hilar vascular structures appear within normal limits. Heart size appears within normal limits. Coronary artery calcifications. Left-sided pacer wires. No focal consolidation. No pleural effusion. No pneumothorax. Ascending aortic aneurysm measures approximately 4.2 x 4.4 cm. Vessel arising from the right aspect of the ascending aorta, possibly related to prior surgery. Small focal outpouching along the anterior aspect of the ascending aorta measures approximately 5 mm without associated calcification. Small focal outpouching along the anterior aspect of the ascending aorta. Large infrarenal abdominal aortic aneurysm measures approximately 8.6 x 8.7 x 11.0 cm; heterogeneous appearance of the aneurysmal sac contents with more focal peripheral noncalcified mural plaque most prominent at the right inferior aspect of the aneurysm sac. Atherosclerotic calcifications of the aorta and branches. Pancreatic atrophy. Cholecystectomy. Small perihepatic ascites. The liver, spleen, and adrenal glands appear unremarkable. The kidneys enhance symmetrically without evidence of hydronephrosis or obstructing renal calculi. 10 mm left renal hypodensity, indeterminate. The stomach is nondistended. Small bowel wall thickening consistent with enteritis. Wall thickening of the rectosigmoid colon consistent with colitis. No evidence of small bowel obstruction. No definite free air. The urinary bladder appears unremarkable. Enlarged heterogeneous prostate gland. Small pelvic free fluid. Degenerative changes. Abnormal sclerotic and lucent appearance of the left pelvis with cortical thickening; correlate clinically for possibility of Paget's disease. Impression: Ascending aortic aneurysm measures approximately 4.2 x 4.4 cm. Vessel arising from the right aspect of the ascending aorta, possibly related to prior surgery. Small focal outpouching along the anterior aspect of the ascending aorta measures approximately 5 mm without associated calcification. Small focal outpouching along the anterior aspect of the ascending aorta. Large infrarenal abdominal aortic aneurysm measures approximately 8.6 x 8.7 x 11.0 cm; heterogeneous appearance of the aneurysmal sac contents with more focal peripheral noncalcified mural plaque most prominent at the right inferior aspect of the aneurysm sac. Atherosclerotic calcifications of the aorta and branches. Findings consistent with enteritis and colitis. Small perihepatic ascites. Small pelvic free fluid. 10 mm left renal hypodensity, indeterminate. Renal ultrasound may be considered for further evaluation. Additional findings as above.
--- NOTE | 2019-01-01 18:56 | VASCLAB ---
Date of service: 12/31/2018 PROCEDURE: Carotid Duplex Exam. HISTORY: Syncope COMPARISON: None available. TECHNIQUE: Grayscale and duplex Doppler evaluation of the cervical carotid and vertebral arteries were performed. The common carotid, carotid bifurcations and cervical Internal Carotid Artery (ICA) and proximal External Carotid Artery (ECA) were evaluated. The vertebral arteries were evaluated for gross patency and flow direction. Report prepared by Rip Fam, BS, RVT FINDINGS: RIGHT CAROTID ARTERIES: 1. Common Carotid Artery: No significant focal plaque formation of the right common carotid artery. Maximum Peak Systolic velocity: 114 cm/sec: End-diastolic velocity 12 cm/sec. 2. Carotid Bifurcation: Calcific plaque formation. Maximum Peak Systolic velocity: 69 cm/sec: End-diastolic velocity 10 cm/sec. 3. Internal Carotid Artery: Plaque description: Calcific 3.1. Proximal Segment: Peak systolic velocity 50 cm/sec: End-diastolic velocity 13 cm/sec - % stenosis 0-15% 3.2. Middle Segment: Peak systolic velocity 62 cm/sec: End-diastolic velocity 16 cm/sec - % stenosis 0-15% 3.3. Distal Segment: Peak systolic velocity 43 cm/sec: End-diastolic velocity 12 cm/sec - % stenosis 0-15% 4. External Carotid Artery: Calcific plaque formation. Peak systolic velocity 135 cm/sec 5. ICA/CCA Ratio: 0.8 LEFT CAROTID ARTERIES: 1. Common Carotid Artery: No significant focal plaque formation of the left common carotid artery. Maximum Peak Systolic velocity: 108 cm/sec: End-diastolic velocity 16 cm/sec. 2. Carotid Bifurcation: Calcific plaque formation. Maximum Peak Systolic velocity: 66 cm/sec: End-diastolic velocity 9 cm/sec. 3. Internal Carotid Artery: Plaque description: Calcific 3.1. Proximal Segment: Peak systolic velocity 74 cm/sec: End-diastolic velocity 20 cm/sec - % stenosis 0-15% 3.2. Middle Segment: Peak systolic velocity 50 cm/sec: End-diastolic velocity 11 cm/sec - % stenosis 0-15% 3.3. Distal Segment: Peak systolic velocity 43 cm/sec: End-diastolic velocity 10 cm/sec - % stenosis 0-15% 4. External Carotid Artery: Calcific plaque formation. Peak systolic velocity 221 cm/sec 5. ICA/CCA Ratio: 1.0 VERTEBRAL ARTERIES: 1. Right Vertebral Artery: The right vertebral artery flow direction is antegrade. 2. Left Vertebral Artery: The left vertebral artery flow direction is antegrade. OTHER FINDINGS: 1. None. IMPRESSION: RIGHT: Duplex scan does not suggest hemodynamically significant stenosis of the right extracranial carotid arteries. LEFT: Duplex scan does not suggest hemodynamically significant stenosis of the left extracranial carotid arteries.
[2019-01-02] MEDS: Sodium Chloride 0.9% 1,000 ML IV SCH (05:30)
[2019-01-02] MEDS: Levothyroxine 75 MCG TAB PO SCH (06:58)
--- NOTE | 2019-01-02 07:59 | CP.PCM.PN ---
Subjective - Date & Time of Evaluation Date of Evaluation: 01/02/19 Time of Evaluation: 07:58 - Subjective Subjective: Pt seen/examined at bedside Pt reports 2 episodes of abdominal pain last night, at 9pm and 1 am. No current abdominal pain. Denies CP, SOB, N or V. Resting comfortably in bed. Objective - Vital Signs/Intake and Output Vital Signs (last 24 hours): Temp Pulse Resp BP Pulse Ox 98.2 F 65 20 133/82 95 01/01/19 23:15 01/02/19 04:24 01/01/19 23:15 01/01/19 23:15 01/01/19 23:15 - Medications Medications: Current Medications Clopidogrel Bisulfate (Plavix) 75 mg PO DAILY [facility] Last Admin: 01/01/19 09:47 Dose: Not Given Famotidine (Pepcid) 20 mg PO BID [facility] Last Admin: 01/01/19 18:46 Dose: 20 mg Sodium Chloride (Sodium Chloride 0.9%) 1,000 mls @ 100 mls/hr IV .Q10H [facility] Last Admin: 01/02/19 05:30 Dose: 100 mls/hr Levothyroxine Sodium (Synthroid) 75 mcg PO DAILY@0630 [facility] Last Admin: 01/02/19 06:58 Dose: 75 mcg Yueqe-8-Eski Ethyl Esters (Lovaza) 1 gm PO DAILY [facility] Last Admin: 01/01/19 09:47 Dose: Not Given Pneumococcal Polyvalent Vaccine (Pneumovax 23 Vaccine) 0.5 ml IM .ONCE ONE Stop: 01/04/19 10:01 Rosuvastatin Calcium (Crestor) 5 mg PO HS [facility] Last Admin: 01/01/19 21:30 Dose: 5 mg Silver Sulfadiazine (Silvadene 1% 20 Gm) 0 ea TOP DAILY [facility] Last Admin: 01/01/19 09:47 Dose: 1 applic - Labs Labs: 01/01/19 11:31 01/01/19 11:31 PT 11.6 SECONDS (9.7-12.2) 12/30/18 23:00 INR 1.1 12/30/18 23:00 APTT 25 SECONDS (21-34) 12/30/18 23:00 - Constitutional Appears: No Acute Distress - Head Exam Head Exam: ATRAUMATIC, NORMAL INSPECTION, NORMOCEPHALIC - Eye Exam Eye Exam: Normal appearance - ENT Exam ENT Exam: Mucous Membranes Moist, Normal Exam - Neck Exam Neck Exam: Full ROM - Respiratory Exam Respiratory Exam: NORMAL BREATHING PATTERN - Cardiovascular Exam Cardiovascular Exam: REGULAR RHYTHM - GI/Abdominal Exam GI & Abdominal Exam: Soft, Pulsatile Mass. absent: Distended, Firm, Guarding, Rigid, Tenderness - Extremities Exam Extremities Exam: Full ROM - Neurological Exam Neurological Exam: Alert, Awake, CN II-XII Intact, Oriented x3 - Psychiatric Exam Psychiatric exam: Normal Affect, Normal Mood - Skin Skin Exam: Dry, Intact, Normal Color, Warm Assessment and Plan - Assessment and Plan (Free Text) Assessment: 83M w/incidentally found infra-renal AAA Plan: FU CTA w/run off Surgical recommendations pending imaging results and attending evaluation Further care as per primary team Will LARON Jerry
[2019-01-02 08:35] LABS: EOS # 0.2 K/uL (0.0-0.7); LYMPH # 0.9 K/uL (1.0-4.3); NRBC % 0.1 % (0.0-2.0); WHITE BLOOD COUNT 3.7 K/uL (4.8-10.8)
[2019-01-02 08:42] LABS: BASO % 0.4 % (0.0-2.0); EOS % 6.1 % (0.0-4.0); HEMOGLOBIN 13.2 g/dL (12.0-18.0); MEAN CELL VOLUME 94.2 fL (80.0-94.0); MEAN CORPUSCULAR HEMOGLOBIN 31.3 pg (27.0-31.0); MEAN CORPUSCULAR HGB CONC 33.2 g/dL (33.0-37.0); MONO # 0.6 K/uL (0.0-0.8); MONO % 15.1 % (0.0-10.0); NEUT % 53.4 % (50.0-75.0); RBC 4.2 Mil/uL (4.40-5.90)
[2019-01-02 09:22] LABS: BLOOD UREA NITROGEN 15 mg/dL (9-20); CALCIUM 7.6 mg/dl (8.6-10.4); GFR NON-AFRICAN AMERICAN > 60
[2019-01-02] MEDS ORDERED: Pneumococcal 23-Valent Vaccine IM ONE (10:00)
[2019-01-02] MEDS: Silver Sulfadiazine 1% Cream (20 gm) TOP SCH (10:32)
[2019-01-02] MEDS: Omega-3-Acid Ethyl Esters 1 GM Cap PO SCH (10:32)
--- NOTE | 2019-01-02 12:31 | CP.PCM.PN ---
Subjective - Date & Time of Evaluation Date of Evaluation: 01/02/19 Time of Evaluation: 12:30 - Subjective Subjective: awaiting cardiac input aneurysm can be stented right renal is a little close but manageable Objective - Vital Signs/Intake and Output Vital Signs (last 24 hours): Temp Pulse Resp BP Pulse Ox 97.8 F 60 20 141/75 98 01/02/19 07:00 01/02/19 07:48 01/02/19 07:00 01/02/19 07:00 01/02/19 07:00 Intake and Output: 01/02/19 01/02/19 06:59 18:59 Intake Total 850 Balance 850 - Medications Medications: Current Medications Clopidogrel Bisulfate (Plavix) 75 mg PO DAILY [facility] Last Admin: 01/02/19 10:32 Dose: 75 mg Famotidine (Pepcid) 20 mg PO BID [facility] Last Admin: 01/02/19 10:32 Dose: 20 mg Sodium Chloride (Sodium Chloride 0.9%) 1,000 mls @ 100 mls/hr IV .Q10H [facility] Last Admin: 01/02/19 05:30 Dose: 100 mls/hr Levothyroxine Sodium (Synthroid) 75 mcg PO DAILY@0630 [facility] Last Admin: 01/02/19 06:58 Dose: 75 mcg Lijkd-4-Tbgf Ethyl Esters (Lovaza) 1 gm PO DAILY [facility] Last Admin: 01/02/19 10:32 Dose: 1 gm Pneumococcal Polyvalent Vaccine (Pneumovax 23 Vaccine) 0.5 ml IM .ONCE ONE Stop: 01/04/19 10:01 Rosuvastatin Calcium (Crestor) 5 mg PO HS [facility] Last Admin: 01/01/19 21:30 Dose: 5 mg Silver Sulfadiazine (Silvadene 1% 20 Gm) 0 ea TOP DAILY [facility] Last Admin: 01/02/19 10:32 Dose: 1 applic - Labs Labs: 01/02/19 08:22 01/02/19 08:22 PT 11.6 SECONDS (9.7-12.2) 12/30/18 23:00 INR 1.1 12/30/18 23:00 APTT 25 SECONDS (21-34) 12/30/18 23:00
[2019-01-02] MEDS: metroNIDAZOLE IV 500 mg/100 ml 500 MG/100 ML BAG IVPB SCH ×2 (15:08→21:30)
--- NOTE | 2019-01-02 18:59 | CP.PCM.PN ---
Subjective - Date & Time of Evaluation Date of Evaluation: 01/02/19 Time of Evaluation: 18:57 - Subjective Subjective: Patient still com same abdominal discomfort. The CT scan reveled colitis started on iv antibx will follow with GI. Objective - Vital Signs/Intake and Output Vital Signs (last 24 hours): Temp Pulse Resp BP Pulse Ox 97.8 F 65 20 141/75 98 01/02/19 07:00 01/02/19 15:15 01/02/19 07:00 01/02/19 07:00 01/02/19 07:00 Intake and Output: 01/02/19 01/02/19 11:59 23:59 Intake Total 850 1200 Output Total 1 Balance 850 1199 - Medications Medications: Current Medications Clopidogrel Bisulfate (Plavix) 75 mg PO DAILY [facility] Last Admin: 01/02/19 10:32 Dose: 75 mg Famotidine (Pepcid) 20 mg PO BID [facility] Last Admin: 01/02/19 17:15 Dose: 20 mg Sodium Chloride (Sodium Chloride 0.9%) 1,000 mls @ 100 mls/hr IV .Q10H [facility] Last Admin: 01/02/19 05:30 Dose: 100 mls/hr Metronidazole (Flagyl) 500 mg in 100 mls @ 100 mls/hr IVPB Q8H [facility]; Protocol Last Admin: 01/02/19 15:08 Dose: Not Given Levothyroxine Sodium (Synthroid) 75 mcg PO DAILY@0630 [facility] Last Admin: 01/02/19 06:58 Dose: 75 mcg Xxwor-0-Dugz Ethyl Esters (Lovaza) 1 gm PO DAILY [facility] Last Admin: 01/02/19 10:32 Dose: 1 gm Pneumococcal Polyvalent Vaccine (Pneumovax 23 Vaccine) 0.5 ml IM .ONCE ONE Stop: 01/04/19 10:01 Rosuvastatin Calcium (Crestor) 5 mg PO HS [facility] Last Admin: 01/01/19 21:30 Dose: 5 mg Silver Sulfadiazine (Silvadene 1% 20 Gm) 0 ea TOP DAILY [facility] Last Admin: 01/02/19 10:32 Dose: 1 applic - Labs Labs: 01/02/19 08:22 01/02/19 08:22 PT 11.6 SECONDS (9.7-12.2) 12/30/18 23:00 INR 1.1 12/30/18 23:00 APTT 25 SECONDS (21-34) 12/30/18 23:00 - Constitutional Appears: Chronically Ill - Head Exam Head Exam: NORMOCEPHALIC - Eye Exam Eye Exam: Normal appearance - ENT Exam ENT Exam: Mucous Membranes Dry - Neck Exam Neck Exam: Full ROM - Respiratory Exam Respiratory Exam: Decreased Breath Sounds - Cardiovascular Exam Cardiovascular Exam: REGULAR RHYTHM, +S1, +S2 - GI/Abdominal Exam GI & Abdominal Exam: Normal Bowel Sounds - Neurological Exam Neurological Exam: Alert, Awake, Oriented x3 - Psychiatric Exam Psychiatric exam: Flat Affect - Skin Skin Exam: Pallor Assessment and Plan (1) Right hand weakness Status: Acute (2) Syncope Status: Acute (3) Vomiting Status: Acute (4) CAD (coronary artery disease) Status: Chronic (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 - Assessment and Plan (Free Text) Plan: As above
--- NOTE | 2019-01-02 21:52 | CP.PCM.CON ---
History of Present Illness - History of Present Illness History of Present Illness: Reason For Consultation: Patient for Pre Op cardiac Endovascular repair of AAA Stress test and ECHO Friday am 83 year old male presented in ER with an episode of pre syncope with no loss of conscience. As per , she cooked liver for lunch and they both ate it. Patient started vomiting a few hours later and while she was cleaning up after him in the living room, she heard a big thump in the other room. reports patient fainted and hit head sustaining abrasion. Patient is currently asymptomatic. Patient denies any headache, dizziness, nausea, vomiting, light headedness, abdominal pain, urinary symptoms, or any other complaints. is concerned because patient has a hx of cardiac disease and bypass surgery. also experienced similar GI symptoms. Present on Admission - Present on Admission Any Indicators Present on Admission: Yes Review of Systems - Constitutional Constitutional: As Per HPI - EENT Eyes: As Per HPI - Cardiovascular Cardiovascular: As Per HPI - Respiratory Respiratory: As Per HPI Physical Exam - Constitutional Appears: Non-toxic - Head Exam Additional comments: Abrasion in the occipital area - Eye Exam Eye Exam: Normal appearance - ENT Exam ENT Exam: Mucous Membranes Dry - Neck Exam Neck exam: Positive for: Full Rom - Respiratory Exam Respiratory Exam: Clear to Auscultation Bilateral - Cardiovascular Exam Cardiovascular Exam: REGULAR RHYTHM, +S1, +S2 - GI/Abdominal Exam GI & Abdominal Exam: Normal Bowel Sounds - Extremities Exam Extremities exam: Positive for: normal inspection - Neurological Exam Neurological exam: Alert, CN II-XII Intact, Oriented x3 - Psychiatric Exam Psychiatric exam: Flat Affect - Skin Skin Exam: Normal Color Past Patient History - Infectious Disease Hx of Infectious Diseases: None - Past Medical History & Family History Past Medical History?: Yes - Past Social History Smoking Status: Former Smoker - CARDIAC Hx Pacemaker: Yes (left side) - PULMONARY Hx Respiratory Disorders: No - NEUROLOGICAL Hx Neurological Disorder: No - HEENT Hx Blind: Yes (legally blind) - RENAL Hx Chronic Kidney Disease: No - ENDOCRINE/METABOLIC Hx Hypothyroidism: Yes - HEMATOLOGICAL/ONCOLOGICAL Hx Blood Disorders: No - INTEGUMENTARY Hx Dermatological Problems: No - MUSCULOSKELETAL/RHEUMATOLOGICAL Hx Musculoskeletal Disorders: No - GASTROINTESTINAL Hx Gastrointestinal Disorders: No - GENITOURINARY/GYNECOLOGICAL Hx Genitourinary Disorders: No - PSYCHIATRIC Hx Substance Use: No - SURGICAL HISTORY Hx Surgeries: Yes Other/Comment: CABG X2. pacemaker insertion - ANESTHESIA Hx Anesthesia: Yes Hx Anesthesia Reactions: No Hx Malignant Hyperthermia: No Meds Allergies/Adverse Reactions: Allergies Allergy/AdvReac Type Severity Reaction Status Date / Time No Known Allergies Allergy Unverified 12/30/18 22:37 - Medications Medications: Current Medications Amlodipine Besylate (Norvasc) 2.5 mg PO DAILY [facility] Last Admin: 01/02/19 21:30 Dose: 2.5 mg Clopidogrel Bisulfate (Plavix) 75 mg PO DAILY [facility] Last Admin: 01/02/19 10:32 Dose: 75 mg Famotidine (Pepcid) 20 mg PO BID [facility] Last Admin: 01/02/19 17:15 Dose: 20 mg Sodium Chloride (Sodium Chloride 0.9%) 1,000 mls @ 100 mls/hr IV .Q10H [facility] Last Admin: 01/02/19 05:30 Dose: 100 mls/hr Metronidazole (Flagyl) 500 mg in 100 mls @ 100 mls/hr IVPB Q8H [facility]; Protocol Last Admin: 01/02/19 21:30 Dose: 100 mls/hr Levothyroxine Sodium (Synthroid) 75 mcg PO DAILY@0630 [facility] Last Admin: 01/02/19 06:58 Dose: 75 mcg Tbqwp-5-Uioq Ethyl Esters (Lovaza) 1 gm PO DAILY [facility] Last Admin: 01/02/19 10:32 Dose: 1 gm Pneumococcal Polyvalent Vaccine (Pneumovax 23 Vaccine) 0.5 ml IM .ONCE ONE Stop: 01/04/19 10:01 Rosuvastatin Calcium (Crestor) 5 mg PO [facility] Last Admin: 01/02/19 21:30 Dose: 5 mg Silver Sulfadiazine (Silvadene 1% 20 Gm) 0 ea TOP DAILY [facility] Last Admin: 01/02/19 10:32 Dose: 1 applic Results - Vital Signs Recent Vital Signs: Last Vital Signs Temp 97.8 F 01/02/19 15:43 Pulse 64 01/02/19 15:43 Resp 20 01/02/19 15:43 BP 140/81 01/02/19 15:43 Pulse Ox 97 01/02/19 15:43 - Labs Result Diagrams: 01/03/19 13:54 01/03/19 13:54 Labs: Laboratory Results - last 24 hr 01/02/19 01/02/1919 08:22 08:22 15:30 WBC 3.7 L RBC 4.20 L Hgb 13.2 Hct 39.6 MCV 94.2 H MCH 31.3 H MCHC 33.2 RDW 14.0 Plt Count 124 L MPV 8.0 Neut % (Auto) 53.4 Lymph % (Auto) 25.0 [place] % (Auto) 15.1 H Eos % (Auto) 6.1 H Baso % (Auto) 0.4 Neut # (Auto) 2.0 Lymph # (Auto) 0.9 L [place] # (Auto) 0.6 Eos # (Auto) 0.2 Baso # (Auto) 0.0 Differential Comment Sodium 134 Potassium 4.2 Chloride 107 Carbon Dioxide 22 Anion Gap 9 L BUN 15 Creatinine 0.7 L Est GFR ( Amer) > 60 Est GFR (Non-Af Amer) > 60 Random Glucose 92 Calcium 7.6 L C. difficile Ag & Toxin Negative Assessment & Plan - Assessment and Plan (Free Text) Assessment: *3 M with hx of CAD s/p CABG several years ago, HTN, CVA, S/P PPM Now with large AAA and Thoracic Aortic aneurysm Needs pre Op cardiac risk assessment For stress test and ECHO prior to Endovascular AAA graft
[2019-01-03] MEDS: metroNIDAZOLE IV 500 mg/100 ml 500 MG/100 ML BAG IVPB SCH ×3 (05:32→21:31)
[2019-01-03] MEDS: Levothyroxine 75 MCG TAB PO SCH (05:33)
--- NOTE | 2019-01-03 07:10 | CP.PCM.PN ---
Subjective - Date & Time of Evaluation Date of Evaluation: 01/03/19 Time of Evaluation: 06:50 - Subjective Subjective: Vascular Surgery Dr. Jerry Pt S&E @bedside. No acute events over night. Pt has no complaints this AM. denies abd pain, CP, SOB, F/C, N/V. tolerating diet. Objective - Vital Signs/Intake and Output Vital Signs (last 24 hours): Temp Pulse Resp BP Pulse Ox 98.7 F 61 20 151/83 H 99 01/02/19 23:00 01/03/19 04:15 01/02/19 23:00 01/02/19 23:00 01/02/19 23:00 Intake and Output: 01/03/19 01/03/19 06:59 18:59 Intake Total 1720 Output Total 1800 Balance -80 - Medications Medications: Current Medications Amlodipine Besylate (Norvasc) 2.5 mg PO DAILY [facility] Last Admin: 01/02/19 21:30 Dose: 2.5 mg Clopidogrel Bisulfate (Plavix) 75 mg PO DAILY [facility] Last Admin: 01/02/19 10:32 Dose: 75 mg Famotidine (Pepcid) 20 mg PO BID [facility] Last Admin: 01/02/19 17:15 Dose: 20 mg Metronidazole (Flagyl) 500 mg in 100 mls @ 100 mls/hr IVPB Q8H [facility]; Protocol Last Admin: 01/03/19 05:32 Dose: 100 mls/hr Levothyroxine Sodium (Synthroid) 75 mcg PO DAILY@0630 [facility] Last Admin: 01/03/19 05:33 Dose: 75 mcg Rskmx-7-Lolh Ethyl Esters (Lovaza) 1 gm PO DAILY [facility] Last Admin: 01/02/19 10:32 Dose: 1 gm Pneumococcal Polyvalent Vaccine (Pneumovax 23 Vaccine) 0.5 ml IM .ONCE ONE Stop: 01/04/19 10:01 Rosuvastatin Calcium (Crestor) 5 mg PO HS [facility] Last Admin: 01/02/19 21:30 Dose: 5 mg Silver Sulfadiazine (Silvadene 1% 20 Gm) 0 ea TOP DAILY [facility] Last Admin: 01/02/19 10:32 Dose: 1 applic - Labs Labs: 01/02/19 08:22 01/02/19 08:22 PT 11.6 SECONDS (9.7-12.2) 12/30/18 23:00 INR 1.1 12/30/18 23:00 APTT 25 SECONDS (21-34) 12/30/18 23:00 - Constitutional Appears: Non-toxic, No Acute Distress - Head Exam Head Exam: NORMAL INSPECTION - Eye Exam Eye Exam: Normal appearance - ENT Exam ENT Exam: Mucous Membranes Moist - Respiratory Exam Respiratory Exam: NORMAL BREATHING PATTERN. absent: Accessory Muscle Use, Respiratory Distress - Cardiovascular Exam Cardiovascular Exam: REGULAR RHYTHM. absent: Bradycardia, Tachycardia - GI/Abdominal Exam GI & Abdominal Exam: Soft, Pulsatile Mass. absent: Distended, Tenderness - Extremities Exam Extremities Exam: Normal Inspection - Neurological Exam Neurological Exam: Alert, Awake - Psychiatric Exam Psychiatric exam: Normal Affect, Normal Mood - Skin Skin Exam: Dry, Intact, Normal Color, Warm Assessment and Plan - Assessment and Plan (Free Text) Assessment: 83 y/o M w/incidentally found infra-renal AAA Plan: - f/u CTA w/run off - Plan for EVAR friday - f/u Cards recs - cont strict HTN control Pt discussed w/ Dr. Rosalino Hung DO PGY3
[2019-01-03] MEDS: Omega-3-Acid Ethyl Esters 1 GM Cap PO SCH (10:16)
[2019-01-03] MEDS: Silver Sulfadiazine 1% Cream (20 gm) TOP SCH (10:18)
--- NOTE | 2019-01-03 11:49 | CP.PCM.CON ---
History of Present Illness - History of Present Illness History of Present Illness: ASke dto see pt for enteritis. H/o CAd, hypothyroid,. Admitted for weakness, syncope. [place] bad after eating liver, and also mhad sl diarrheaq. Usual has constipation. Review of Systems - Constitutional Constitutional: Fatigue, Weakness. absent: Fever - EENT Eyes: absent: Photophobia Nose/Mouth/Throat: absent: Lip Swelling - Cardiovascular Cardiovascular: absent: Chest Pain, Dyspnea - Respiratory Respiratory: absent: Dyspnea, Hemoptysis, Wheezing, Snoring - Gastrointestinal Gastrointestinal: Constipation, Diarrhea, Nausea. absent: Hematemesis, Hematochezia, Melena - Genitourinary Genitourinary: absent: Hematuria - Musculoskeletal Musculoskeletal: absent: Muscle Cramps - Integumentary Integumentary: absent: Rash, Jaundice - Neurological Neurological: absent: Convulsions Past Patient History - Infectious Disease Hx of Infectious Diseases: None - Past Medical History & Family History Past Medical History?: Yes - Past Social History Smoking Status: Former Smoker - CARDIAC Hx Pacemaker: Yes (left side) - PULMONARY Hx Respiratory Disorders: No - NEUROLOGICAL Hx Neurological Disorder: No - HEENT Hx Blind: Yes (legally blind) - RENAL Hx Chronic Kidney Disease: No - ENDOCRINE/METABOLIC Hx Hypothyroidism: Yes - HEMATOLOGICAL/ONCOLOGICAL Hx Blood Disorders: No - INTEGUMENTARY Hx Dermatological Problems: No - MUSCULOSKELETAL/RHEUMATOLOGICAL Hx Musculoskeletal Disorders: No - GASTROINTESTINAL Hx Gastrointestinal Disorders: No - GENITOURINARY/GYNECOLOGICAL Hx Genitourinary Disorders: No - PSYCHIATRIC Hx Substance Use: No - SURGICAL HISTORY Hx Surgeries: Yes Other/Comment: CABG X2. pacemaker insertion - ANESTHESIA Hx Anesthesia: Yes Hx Anesthesia Reactions: No Hx Malignant Hyperthermia: No Meds Allergies/Adverse Reactions: Allergies Allergy/AdvReac Type Severity Reaction Status Date / Time No Known Allergies Allergy Unverified 12/30/18 22:37 - Medications Medications: Current Medications Amlodipine Besylate (Norvasc) 2.5 mg PO DAILY [facility] Last Admin: 01/03/19 10:16 Dose: 2.5 mg Clopidogrel Bisulfate (Plavix) 75 mg PO DAILY [facility] Last Admin: 01/03/19 10:16 Dose: 75 mg Famotidine (Pepcid) 20 mg PO BID [facility] Last Admin: 01/03/19 10:16 Dose: 20 mg Metronidazole (Flagyl) 500 mg in 100 mls @ 100 mls/hr IVPB Q8H [facility]; Protocol Last Admin: 01/03/19 05:32 Dose: 100 mls/hr Levothyroxine Sodium (Synthroid) 75 mcg PO DAILY@0630 [facility] Last Admin: 01/03/19 05:33 Dose: 75 mcg Smdiy-2-Opnx Ethyl Esters (Lovaza) 1 gm PO DAILY [facility] Last Admin: 01/03/19 10:16 Dose: 1 gm Pneumococcal Polyvalent Vaccine (Pneumovax 23 Vaccine) 0.5 ml IM .ONCE ONE Stop: 01/04/19 10:01 Rosuvastatin Calcium (Crestor) 5 mg PO HS [facility] Last Admin: 01/02/19 21:30 Dose: 5 mg Silver Sulfadiazine (Silvadene 1% 20 Gm) 0 ea TOP DAILY [facility] Last Admin: 01/03/19 10:18 Dose: 1 applic Physical Exam - Constitutional Appears: Well - Respiratory Exam Respiratory Exam: Clear to Auscultation Bilateral - Cardiovascular Exam Cardiovascular Exam: RRR - GI/Abdominal Exam GI & Abdominal Exam: Normal Bowel Sounds, Soft. absent: Distended, Guarding, Mass, Rebound, Tenderness - Extremities Exam Extremities exam: Negative for: calf tenderness - Neurological Exam Neurological exam: Alert, Oriented x3 Results - Vital Signs Recent Vital Signs: Last Vital Signs Temp 97.8 F 01/03/19 08:18 Pulse 63 01/03/19 08:21 Resp 20 01/03/19 08:18 BP 128/72 01/03/19 08:18 Pulse Ox 96 01/03/19 08:18 - Labs Result Diagrams: 01/02/19 08:22 01/02/19 08:22 Labs: Laboratory Results - last 24 hr 01/02/19 15:30 C. difficile Ag & Toxin Negative Assessment & Plan (1) Enteritis Assessment and Plan: Seen on CT. Consdier gastroenteritis. I doubt colitis, ischemic bowel. Reports feeling better. On flagyl. Rec- check stool tests. Status: Acute (2) Abdominal pain Assessment and Plan: gastroenteritis Status: Acute (3) Aortic aneurysm Assessment and Plan: f/u DR Jerry Status: Acute (4) Syncope Status: Acute (5) Vomiting Status: Acute (6) CAD (coronary artery disease) Status: Chronic
[2019-01-03 14:05] LABS: BASO % 0.4 % (0.0-2.0); EOS # 0.3 K/uL (0.0-0.7); EOS % 8.4 % (0.0-4.0); HEMOGLOBIN 13.5 g/dL (12.0-18.0); LYMPH # 0.8 K/uL (1.0-4.3); LYMPH % 21.3 % (20.0-40.0); MEAN CELL VOLUME 94.5 fL (80.0-94.0); MEAN CORPUSCULAR HEMOGLOBIN 31.2 pg (27.0-31.0); MEAN PLATELET VOLUME 8.1 fL (7.2-11.7); MONO # 0.4 K/uL (0.0-0.8); MONO % 9.3 % (0.0-10.0); NEUT # 2.4 K/uL (1.8-7.0); NEUT % 60.6 % (50.0-75.0); NRBC % 0.1 % (0.0-2.0); RBC 4.33 Mil/uL (4.40-5.90)
[2019-01-03 14:18] LABS: BLOOD UREA NITROGEN 13 mg/dL (9-20); CALCIUM 8.1 mg/dl (8.6-10.4); GFR NON-AFRICAN AMERICAN > 60
[2019-01-03] MEDS ORDERED: Iodixanol 320 mg/ml 150 ml Bottle IV ONE (14:36)
--- NOTE | 2019-01-03 17:23 | US ---
Date of service: 01/03/2019 PROCEDURE: Ultrasound of the Kidneys HISTORY: lt kidney hypodensity 1 cm COMPARISON: Correlation made with CTA of the chest abdomen pelvis 01/01/2019. TECHNIQUE: Correlation made with sonogram of the kidneys. FINDINGS: RIGHT KIDNEY: Measures: 9.4 x 4.6 x 3.7 cm. Normal in size, contour and echogenicity. No stone, solid mass lesion or hydronephrosis visualized. LEFT KIDNEY: Measures: 9.7 x 4.5 x 4.4 cm. Normal in size. Left kidney exhibits slight increased echotexture. Previously noted low-attenuation focus left kidney seen on prior CTA chest abdomen pelvis and not appreciated on this study.. Consider follow-up CT scan of the kidneys employing renal protocol No evidence of hydronephrosis. No echogenic shadowing obstructing calculi OTHER FINDINGS: Redemonstrated is large aneurysmal dilatation of the infrarenal abdominal aorta seen to much better advantage on prior CT scan... Current measurements on this study are 8.0 x 7.5 x 7.4 cm though are larger on more accurate CT scan. Please refer that study and corresponding report. IMPRESSION: Large infrarenal abdominal aortic aneurysm. Echogenic left kidney. Previously noted low-attenuation focus left kidney seen on prior CTA chest abdomen pelvis and not appreciated on this study.. Consider follow-up CT scan of the kidneys employing renal protocol
--- NOTE | 2019-01-03 19:02 | CP.PCM.PN ---
Subjective - Date & Time of Evaluation Date of Evaluation: 01/03/19 Time of Evaluation: 16:00 - Subjective Subjective: general weakness, same abdominal pain but improving. Objective - Vital Signs/Intake and Output Vital Signs (last 24 hours): Temp Pulse Resp BP Pulse Ox 97.9 F 68 20 147/79 95 01/03/19 18:00 01/03/19 18:00 01/03/19 18:00 01/03/19 18:00 01/03/19 18:00 Intake and Output: 01/03/19 01/03/19 11:59 23:59 Intake Total 920 Output Total 1000 Balance -80 - Medications Medications: Current Medications Amlodipine Besylate (Norvasc) 2.5 mg PO DAILY [facility] Last Admin: 01/03/19 10:16 Dose: 2.5 mg Clopidogrel Bisulfate (Plavix) 75 mg PO DAILY [facility] Last Admin: 01/03/19 10:16 Dose: 75 mg Famotidine (Pepcid) 20 mg PO BID [facility] Last Admin: 01/03/19 17:40 Dose: 20 mg Metronidazole (Flagyl) 500 mg in 100 mls @ 100 mls/hr IVPB Q8H [facility]; Protocol Last Admin: 01/03/19 15:17 Dose: 100 mls/hr Levothyroxine Sodium (Synthroid) 75 mcg PO DAILY@0630 [facility] Last Admin: 01/03/19 05:33 Dose: 75 mcg Vdkzf-1-Kage Ethyl Esters (Lovaza) 1 gm PO DAILY [facility] Last Admin: 01/03/19 10:16 Dose: 1 gm Pneumococcal Polyvalent Vaccine (Pneumovax 23 Vaccine) 0.5 ml IM .ONCE ONE Stop: 01/04/19 10:01 Rosuvastatin Calcium (Crestor) 5 mg PO HS [facility] Last Admin: 01/02/19 21:30 Dose: 5 mg Silver Sulfadiazine (Silvadene 1% 20 Gm) 0 ea TOP DAILY [facility] Last Admin: 01/03/19 10:18 Dose: 1 applic - Labs Labs: 01/03/19 13:54 01/03/19 13:54 PT 11.6 SECONDS (9.7-12.2) 12/30/18 23:00 INR 1.1 12/30/18 23:00 APTT 25 SECONDS (21-34) 12/30/18 23:00 - Constitutional Appears: Chronically Ill - Head Exam Head Exam: NORMOCEPHALIC - Eye Exam Eye Exam: EOMI, Normal appearance - ENT Exam ENT Exam: Mucous Membranes Dry - Neck Exam Neck Exam: Full ROM - Respiratory Exam Respiratory Exam: Clear to Ausculation Bilateral - Cardiovascular Exam Cardiovascular Exam: REGULAR RHYTHM, +S1, +S2 - GI/Abdominal Exam GI & Abdominal Exam: Normal Bowel Sounds - Extremities Exam Extremities Exam: Normal Inspection - Back Exam Back Exam: NORMAL INSPECTION - Neurological Exam Neurological Exam: Alert, Awake, CN II-XII Intact - Psychiatric Exam Psychiatric exam: Flat Affect - Skin Skin Exam: Pallor Assessment and Plan (1) Right hand weakness Status: Acute (2) Syncope Status: Acute (3) Vomiting Status: Acute (4) CAD (coronary artery disease) Status: Chronic (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
--- NOTE | 2019-01-03 20:10 | CP.PCM.PN ---
Subjective - Date & Time of Evaluation Date of Evaluation: 01/03/19 Time of Evaluation: 14:10 - Subjective Subjective: Patient seen and evaluated Denes chest pain and dyspnea at bed side Review of Systems - Constitutional Constitutional: As Per HPI - EENT Eyes: As Per HPI - Cardiovascular Cardiovascular: As Per HPI - Respiratory Respiratory: As Per HPI Physical Exam - Constitutional Appears: Non-toxic - Head Exam Additional comments: Abrasion in the occipital area - Eye Exam Eye Exam: Normal appearance - ENT Exam ENT Exam: Mucous Membranes Dry - Neck Exam Neck exam: Positive for: Full Rom - Respiratory Exam Respiratory Exam: Clear to Auscultation Bilateral - Cardiovascular Exam Cardiovascular Exam: REGULAR RHYTHM, +S1, +S2 - GI/Abdominal Exam GI & Abdominal Exam: Normal Bowel Sounds - Extremities Exam Extremities exam: Positive for: normal inspection - Neurological Exam Neurological exam: Alert, CN II-XII Intact, Oriented x3 - Psychiatric Exam Psychiatric exam: Flat Affect - Skin Skin Exam: Normal Color Assessment & Plan - Assessment and Plan (Free Text) Assessment: *3 M with hx of CAD s/p CABG several years ago, HTN, CVA, S/P PPM Now with large AAA and Thoracic Aortic aneurysm Needs pre Op cardiac risk assessment For stress test and ECHO prior to Endovascular AAA graft D/W the Son Harvinder on the phone and at bedside They understand the high risk nature of his cardiac condition Objective - Vital Signs/Intake and Output Vital Signs (last 24 hours): Temp Pulse Resp BP Pulse Ox 97.9 F 68 20 147/79 95 01/03/19 18:00 01/03/19 18:00 01/03/19 18:00 01/03/19 18:00 01/03/19 18:00 - Medications Medications: Current Medications Amlodipine Besylate (Norvasc) 2.5 mg PO DAILY [facility] Last Admin: 01/03/19 10:16 Dose: 2.5 mg Clopidogrel Bisulfate (Plavix) 75 mg PO DAILY [facility] Last Admin: 01/03/19 10:16 Dose: 75 mg Famotidine (Pepcid) 20 mg PO BID [facility] Last Admin: 01/03/19 17:40 Dose: 20 mg Metronidazole (Flagyl) 500 mg in 100 mls @ 100 mls/hr IVPB Q8H [facility]; Protocol Last Admin: 01/03/19 15:17 Dose: 100 mls/hr Levothyroxine Sodium (Synthroid) 75 mcg PO DAILY@0630 [facility] Last Admin: 01/03/19 05:33 Dose: 75 mcg Xvkmi-4-Qrcj Ethyl Esters (Lovaza) 1 gm PO DAILY [facility] Last Admin: 01/03/19 10:16 Dose: 1 gm Pneumococcal Polyvalent Vaccine (Pneumovax 23 Vaccine) 0.5 ml IM .ONCE ONE Stop: 01/04/19 10:01 Rosuvastatin Calcium (Crestor) 5 mg PO HS [facility] Last Admin: 01/02/19 21:30 Dose: 5 mg Silver Sulfadiazine (Silvadene 1% 20 Gm) 0 ea TOP DAILY [facility] Last Admin: 01/03/19 10:18 Dose: 1 applic - Labs Labs: 01/03/19 13:54 01/03/19 13:54 PT 11.6 SECONDS (9.7-12.2) 12/30/18 23:00 INR 1.1 12/30/18 23:00 APTT 25 SECONDS (21-34) 12/30/18 23:00
[2019-01-04] MEDS: Levothyroxine 75 MCG TAB PO SCH (05:40)
[2019-01-04] MEDS: metroNIDAZOLE IV 500 mg/100 ml 500 MG/100 ML BAG IVPB SCH ×3 (05:40→21:23)
[2019-01-04 08:07] LABS: HEMOGLOBIN 13.5 g/dL (12.0-18.0); MEAN CELL VOLUME 93.5 fL (80.0-94.0); MEAN CORPUSCULAR HEMOGLOBIN 31.3 pg (27.0-31.0); MEAN CORPUSCULAR HGB CONC 33.4 g/dL (33.0-37.0); MEAN PLATELET VOLUME 8.1 fL (7.2-11.7); RBC 4.3 Mil/uL (4.40-5.90); RED CELL DISTRIBUTION WIDTH 13.5 % (11.5-14.5); WHITE BLOOD COUNT 4.9 K/uL (4.8-10.8)
[2019-01-04 08:27] LABS: BLOOD UREA NITROGEN 15 mg/dL (9-20); CALCIUM 8.5 mg/dl (8.6-10.4); GFR NON-AFRICAN AMERICAN > 60
[2019-01-04] MEDS ORDERED: Caffeine Citrated **INJ** 20 MG/ML IV ONE (08:30)
[2019-01-04] MEDS ORDERED: Pneumococcal 23-Valent Vaccine IM ONE (10:00)
--- NOTE | 2019-01-04 11:56 | CT ---
Date of service: 01/03/2019 PROCEDURE: CT Angiography Abdomen, Pelvis and Lower Extremity with Contrast HISTORY: AAA evaluation COMPARISON: None. TECHNIQUE: Technique: CT angiography of the abdomen, pelvis and bilateral lower extremities performed in the arterial phase of enhancement. Coronal and sagittal reformats, and well as rotating MIP images of the vessels generated at the workstation. Intravenous contrast dose: Radiation dose: Total exam DLP = 1548.59 mGy-cm. This CT exam was performed using one or more of the following dose reduction techniques: Automated exposure control, adjustment of the mA and/or kV according to patient size, and/or use of iterative reconstruction technique. FINDINGS: CT ANGIOGRAPHY: No aortic atherosclerotic calcification or mural plaque present. ABDOMINAL AORTA:: Large infrarenal lower abdominal aortic aneurysm measuring roughly 8.5 x 8.9 centimeters. 11 centimeters in longitudinal length. No dissection. Moderate atherosclerotic plaquing. MAJOR AORTIC BRANCHES: Celiac Miranda: Unremarkable. Superior mesenteric artery: Unremarkable. Inferior mesenteric artery: Unremarkable. Renal arteries: Unremarkable. PELVIC ARTERIES: Right Common Iliac: Unremarkable. Right External Iliac: Unremarkable. Right Internal Iliac: Unremarkable. Left Common Iliac: Unremarkable. Left External Iliac: Unremarkable. Left Internal Iliac: Unremarkable. RIGHT LOWER EXTREMITY ARTERIES: Right Common Femoral: Unremarkable. Right Superficial Femoral: Unremarkable. Right Profunda Femoris: Unremarkable. Right Popliteal:Unremarkable. Right Anterior Tibial: Unremarkable. Right Tibioperoneal Trunk: Unremarkable. Right Posterior Tibial: Unremarkable. Right Peroneal: Unremarkable. Right dorsalis pedis : Unremarkable. LEFT LOWER EXTREMITY ARTERIES: Left Common Femoral: Unremarkable. Left Superficial Femoral: Unremarkable. Left Profunda Femoris: Unremarkable. Left Popliteal: Unremarkable. Left Anterior Tibial: Unremarkable. Left Tibioperoneal Trunk: Unremarkable. Left Posterior Tibial: Unremarkable. Left Peronea: Unremarkable. Left Dorsalis pedis: Unremarkable. NON-ANGIOGRAPHIC ASPECT OF THE EXAM: LOWER THORAX: Small right pleural effusion. LIVER: No mass. Intra and extrahepatic biliary dilatation. GALLBLADDER AND BILE DUCTS: Cholecystectomy. PANCREAS: Unremarkable. No gross lesion or ductal dilatation. SPLEEN: Unremarkable. ADRENALS: Unremarkable. No mass. KIDNEYS AND URETERS: Unremarkable. No hydronephrosis. No solid mass. STOMACH AND BOWEL: Unremarkable. No obstruction. No gross mural thickening. APPENDIX: Normal appendix. PERITONEUM: Mild pelvic fluid. LYMPH NODES: Unremarkable. No enlarged lymph nodes. BLADDER: Unremarkable. REPRODUCTIVE: Unremarkable. BONES: Pagetoid changes of the left pelvic skeletal structures. OTHER FINDINGS: None. IMPRESSION: Large infrarenal lower abdominal aortic aneurysm measuring roughly 8.5 x 8.9 centimeters. 11 centimeters in longitudinal length. No dissection. Moderate atherosclerotic plaquing. Intra and extrahepatic biliary dilatation. No gross mass. Status post cholecystectomy.
--- NOTE | 2019-01-04 12:21 | CP.PCM.PN ---
Subjective - Date & Time of Evaluation Date of Evaluation: 01/04/19 Time of Evaluation: 12:18 - Subjective Subjective: SURGERY NOTE FOR DR. BEASLEY 83M seen and examined at bedside. Patient doing well no acute events overnight. Patient denies abdominal pain, and lower extremity pain. Objective - Vital Signs/Intake and Output Vital Signs (last 24 hours): Temp Pulse Resp BP Pulse Ox 97.8 F 75 20 148/85 96 01/04/19 07:59 01/04/19 07:59 01/04/19 07:59 01/04/19 07:59 01/04/19 07:59 Intake and Output: 01/04/19 01/04/19 06:59 18:59 Intake Total 700 Balance 700 - Medications Medications: Current Medications Amlodipine Besylate (Norvasc) 2.5 mg PO DAILY [facility] Last Admin: 01/03/19 10:16 Dose: 2.5 mg Clopidogrel Bisulfate (Plavix) 75 mg PO DAILY [facility] Last Admin: 01/03/19 10:16 Dose: 75 mg Famotidine (Pepcid) 20 mg PO BID [facility] Last Admin: 01/03/19 17:40 Dose: 20 mg Metronidazole (Flagyl) 500 mg in 100 mls @ 100 mls/hr IVPB Q8H [facility]; Protocol Last Admin: 01/04/19 05:40 Dose: 100 mls/hr Levothyroxine Sodium (Synthroid) 75 mcg PO DAILY@0630 [facility] Last Admin: 01/04/19 05:40 Dose: 75 mcg Fsyrw-7-Erbd Ethyl Esters (Lovaza) 1 gm PO DAILY [facility] Last Admin: 01/03/19 10:16 Dose: 1 gm Rosuvastatin Calcium (Crestor) 5 mg PO HS [facility] Last Admin: 01/03/19 21:31 Dose: 5 mg Silver Sulfadiazine (Silvadene 1% 20 Gm) 0 ea TOP DAILY [facility] Last Admin: 01/03/19 10:18 Dose: 1 applic - Labs Labs: 01/04/19 07:55 01/04/19 07:55 PT 11.6 SECONDS (9.7-12.2) 12/30/18 23:00 INR 1.1 12/30/18 23:00 APTT 25 SECONDS (21-34) 12/30/18 23:00 - Constitutional Appears: Non-toxic, No Acute Distress - Respiratory Exam Respiratory Exam: Clear to Ausculation Bilateral, NORMAL BREATHING PATTERN - Cardiovascular Exam Cardiovascular Exam: REGULAR RHYTHM, +S1, +S2 - GI/Abdominal Exam GI & Abdominal Exam: Soft, Pulsatile Mass. absent: Distended, Firm, Guarding, Rigid, Tenderness, Rebound - Extremities Exam Extremities Exam: absent: Pedal Edema, Tenderness - Neurological Exam Neurological Exam: Alert, Awake Assessment and Plan - Assessment and Plan (Free Text) Assessment: 83M with Abdominal aortic aneurysm Plan: - plan for repair Friday - f/u cardiac clearance Further recs discuss with Dr. Rosalino Peck, PGY3
[2019-01-04] MEDS: Omega-3-Acid Ethyl Esters 1 GM Cap PO SCH (13:21)
[2019-01-04] MEDS: Silver Sulfadiazine 1% Cream (20 gm) TOP SCH (13:55)
--- NOTE | 2019-01-04 16:32 | CP.PCM.PN ---
Subjective - Date & Time of Evaluation Date of Evaluation: 01/04/19 Time of Evaluation: 16:30 - Subjective Subjective: F/U "enteritis" Denies diarrhea or abdominal pain AAA repair scheduled for tomorrow Objective - Vital Signs/Intake and Output Vital Signs (last 24 hours): Temp Pulse Resp BP Pulse Ox 97.8 F 75 20 148/85 96 01/04/19 07:59 01/04/19 07:59 01/04/19 07:59 01/04/19 07:59 01/04/19 07:59 Intake and Output: 01/04/19 01/04/19 06:59 18:59 Intake Total 700 530 Balance 700 530 - Medications Medications: Current Medications Amlodipine Besylate (Norvasc) 2.5 mg PO DAILY [facility] Last Admin: 01/04/19 13:21 Dose: 2.5 mg Clopidogrel Bisulfate (Plavix) 75 mg PO DAILY [facility] Last Admin: 01/04/19 13:22 Dose: 75 mg Famotidine (Pepcid) 20 mg PO BID [facility] Last Admin: 01/04/19 10:00 Dose: Not Given Metronidazole (Flagyl) 500 mg in 100 mls @ 100 mls/hr IVPB Q8H [facility]; Protocol Last Admin: 01/04/19 13:28 Dose: 100 mls/hr Levothyroxine Sodium (Synthroid) 75 mcg PO DAILY@0630 [facility] Last Admin: 01/04/19 05:40 Dose: 75 mcg Bwbml-5-Iump Ethyl Esters (Lovaza) 1 gm PO DAILY [facility] Last Admin: 01/04/19 13:21 Dose: 1 gm Rosuvastatin Calcium (Crestor) 5 mg PO HS [facility] Last Admin: 01/03/19 21:31 Dose: 5 mg Silver Sulfadiazine (Silvadene 1% 20 Gm) 0 ea TOP DAILY [facility] Last Admin: 01/04/19 13:55 Dose: 1 applic - Labs Labs: 01/04/19 07:55 01/04/19 07:55 PT 11.6 SECONDS (9.7-12.2) 12/30/18 23:00 INR 1.1 12/30/18 23:00 APTT 25 SECONDS (21-34) 12/30/18 23:00 - Constitutional Appears: Well, No Acute Distress - Head Exam Head Exam: NORMOCEPHALIC - Respiratory Exam Respiratory Exam: NORMAL BREATHING PATTERN - Cardiovascular Exam Cardiovascular Exam: REGULAR RHYTHM - GI/Abdominal Exam GI & Abdominal Exam: Soft, Pulsatile Mass. absent: Tenderness Assessment and Plan (1) Aortic aneurysm Assessment & Plan: managed by vascular surgeon Status: Acute (2) Enteritis Assessment & Plan: suggested possibility on CT but without clinical symptoms Will monitor Status: Acute
--- NOTE | 2019-01-04 17:08 | CP.PCM.PN ---
Subjective - Date & Time of Evaluation Date of Evaluation: 01/04/19 Time of Evaluation: 17:08 - Subjective Subjective: Patient improving Objective - Vital Signs/Intake and Output Vital Signs (last 24 hours): Temp Pulse Resp BP Pulse Ox 98.0 F 68 20 130/72 98 01/04/19 15:45 01/04/19 15:45 01/04/19 15:45 01/04/19 15:45 01/04/19 15:45 Intake and Output: 01/04/19 01/04/19 11:59 23:59 Intake Total 530 Balance 530 - Medications Medications: Current Medications Amlodipine Besylate (Norvasc) 2.5 mg PO DAILY [facility] Last Admin: 01/04/19 13:21 Dose: 2.5 mg Clopidogrel Bisulfate (Plavix) 75 mg PO DAILY [facility] Last Admin: 01/04/19 13:22 Dose: 75 mg Famotidine (Pepcid) 20 mg PO BID [facility] Last Admin: 01/04/19 10:00 Dose: Not Given Metronidazole (Flagyl) 500 mg in 100 mls @ 100 mls/hr IVPB Q8H [facility]; Protocol Last Admin: 01/04/19 13:28 Dose: 100 mls/hr Levothyroxine Sodium (Synthroid) 75 mcg PO DAILY@0630 [facility] Last Admin: 01/04/19 05:40 Dose: 75 mcg Mdsfs-4-Obou Ethyl Esters (Lovaza) 1 gm PO DAILY [facility] Last Admin: 01/04/19 13:21 Dose: 1 gm Rosuvastatin Calcium (Crestor) 5 mg PO HS [facility] Last Admin: 01/03/19 21:31 Dose: 5 mg Silver Sulfadiazine (Silvadene 1% 20 Gm) 0 ea TOP DAILY [facility] Last Admin: 01/04/19 13:55 Dose: 1 applic - Labs Labs: 01/04/19 07:55 01/04/19 07:55 PT 11.6 SECONDS (9.7-12.2) 12/30/18 23:00 INR 1.1 12/30/18 23:00 APTT 25 SECONDS (21-34) 12/30/18 23:00 - Constitutional Appears: Chronically Ill - Head Exam Head Exam: NORMOCEPHALIC - ENT Exam ENT Exam: Mucous Membranes Dry - Neck Exam Neck Exam: Full ROM - Respiratory Exam Respiratory Exam: Decreased Breath Sounds - Cardiovascular Exam Cardiovascular Exam: REGULAR RHYTHM, +S1, +S2 - GI/Abdominal Exam GI & Abdominal Exam: Tenderness, Normal Bowel Sounds - Extremities Exam Extremities Exam: Normal Inspection - Neurological Exam Neurological Exam: Alert, Awake, Oriented x3 - Psychiatric Exam Psychiatric exam: Flat Affect - Skin Skin Exam: Pallor Assessment and Plan (1) Right hand weakness Status: Acute (2) Syncope Status: Acute (3) Vomiting Status: Acute (4) CAD (coronary artery disease) Status: Chronic (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
[2019-01-04] MEDS ORDERED: Betamethasone Valerate 0.1% Lotion (60 ml) TOP SCH (18:00)
--- NOTE | 2019-01-04 19:10 | CARD ---
APPROVED REPORT Date of service: 01/04/2019 EXAM: Two-dimensional and M-mode echocardiogram with Doppler and color Doppler. Other Information Quality : TDSRhythm : INDICATION Cardiac Disease: CAD Syncope Surgery/Intervention ICD/Pacemaker: CABD DIMENSIONS IVSd1.2 (0.7-1.1cm)LVDd3.0 (3.9-5.9cm) PWd1.1 (0.7-1.1cm)LA Ffryjd42 (18-58mL) LVDs2.4 (2.5-4.0cm)FS (%) 21.1 % LVEF (%)60.0 (>50%)LVEF (Mak's)64.01 % M-Mode DIMENSIONS Left Atrium (MM)4.21 (2.5-4.0cm)IVSd0.98 (0.7-1.1cm) Aortic Root4.10 (2.2-3.7cm)LVDd4.36 (4.0-5.6cm) Aortic Cusp Exc.2.20 (1.5-2.0cm)PWd0.94 (0.7-1.1cm) FS (%) 34 %LVDs2.88 (2.0-3.8cm) LVEF (%)63 (>50%) Aortic Valve AI P 1/2 Kibs554mm Mitral Valve MV E Fktrsxgx09.5cm/sMV A Osjvndll47.0cm/sE/A ratio1.1 TDI Lateral E' Peak V8.74cm/sMedial E' Peak V7.00cm/sE/Lateral E'6.1 E/Medial E'7.6 Tricuspid Valve TR Peak Fyjrbplw347cv/sTR Peak Gr.64keDbLZQS93jrAr LEFT VENTRICLE The left ventricle is normal size. Mildly increased LV wall thickness. The left ventricular function is normal. The left ventricular ejection fraction is within the normal range.64% No regional wall motion abnormalities noted. The left ventricular diastolic function is indetrmiante (PW doppler taken at mitral annulus not leaflete tips - cannot interpret). No left ventricle thrombus noted on this study. There is no ventricular septal defect visualized. There is no left ventricular aneurysm. There is no mass noted in the left ventricle. RIGHT VENTRICLE The right ventricle is normal size. A ppm wire is noted. There is normal right ventricular wall thickness. The right ventricular systolic function is normal. ATRIA The left atrium size is normal. The right atrium size is normal. The interatrial septum is intact with no evidence for an atrial septal defect. AORTIC VALVE The aortic valve is normal in structure and function. Trace aortic regurgitation is present. Mildly reduced aortic valve opeing, with thickened leaflets. The normal peak gradient obtained may be an error. There is no aortic valvular vegetation. MITRAL VALVE The mitral valve is normal in structure and function. There is no evidence of mitral valve prolapse. There is no mitral valve stenosis. There is no mitral valve regurgitation noted. TRICUSPID VALVE The tricuspid valve is normal in structure and function. There is mild tricuspid valve regurgitation noted. There is no tricuspid valve prolapse or vegetation. There is no tricuspid valve stenosis. PULMONIC VALVE The pulmonary valve is normal in structure and function. There is no pulmonic valvular regurgitation. There is no pulmonic valvular stenosis. GREAT VESSELS The aortic root is normal in size. The ascending aorta is normal in size. The pulmonary artery is normal. The IVC is normal in size and collapses >50% with inspiration. PERICARDIAL EFFUSION The pericardium appears normal. There is no pleural effusion. <Conclusion> The left ventricular function is normal. Mildly increased LV wall thickness. Mild aortic stenosis with trace aortic regurgitation.
--- NOTE | 2019-01-04 19:11 | CP.PCM.PN ---
Subjective - Date & Time of Evaluation Date of Evaluation: 01/04/19 Time of Evaluation: 19:06 - Subjective Subjective: Patient seen and evaluated No cardiac events noted Patient s/p stress test and ECHO Denies chest pain and dyspnea Review of Systems - Constitutional Constitutional: As Per HPI - EENT Eyes: As Per HPI - Cardiovascular Cardiovascular: As Per HPI - Respiratory Respiratory: As Per HPI Physical Exam - Constitutional Appears: Non-toxic - Head Exam Additional comments: Abrasion in the occipital area - Eye Exam Eye Exam: Normal appearance - ENT Exam ENT Exam: Mucous Membranes Dry - Neck Exam Neck exam: Positive for: Full Rom - Respiratory Exam Respiratory Exam: Clear to Auscultation Bilateral - Cardiovascular Exam Cardiovascular Exam: REGULAR RHYTHM, +S1, +S2 - GI/Abdominal Exam GI & Abdominal Exam: Normal Bowel Sounds - Extremities Exam Extremities exam: Positive for: normal inspection - Neurological Exam Neurological exam: Alert, CN II-XII Intact, Oriented x3 - Psychiatric Exam Psychiatric exam: Flat Affect - Skin Skin Exam: Normal Color Assessment & Plan - Assessment and Plan (Free Text) Assessment: 83 M with hx of CAD s/p CABG several years ago, HTN, CVA, S/P PPM Now with large AAA and Thoracic Aortic aneurysm Needs pre Op cardiac risk assessment ECHO: Normal EF. No major valvular issues Stress Test: No stress induced ischemia PPM: Normal function However this 83 year old gentleman with Hx of CABG, HTN, Hyperlipidemia, s/p PPM, CVA and Aortic aneurysm Assessed as moderate to high risk for cardiac events for Endovascular AAA repair High risk for Open AAA repair If benefit outweighs the risk please proceed with the surgery Patient and family aware of the risk and benefits of the procedure and surgery Objective - Vital Signs/Intake and Output Vital Signs (last 24 hours): Temp Pulse Resp BP Pulse Ox 98.0 F 68 20 130/72 98 01/04/19 15:45 01/04/19 15:45 01/04/19 15:45 01/04/19 15:45 01/04/19 15:45 Intake and Output: 01/04/19 01/05/19 18:59 06:59 Intake Total 530 Balance 530 - Medications Medications: Current Medications Amlodipine Besylate (Norvasc) 2.5 mg PO DAILY [facility] Last Admin: 01/04/19 13:21 Dose: 2.5 mg Betamethasone Valerate (Betamethasone Valerate 0.1%) 0 ml TOP BID [facility] Clopidogrel Bisulfate (Plavix) 75 mg PO DAILY [facility] Last Admin: 01/04/19 13:22 Dose: 75 mg Famotidine (Pepcid) 20 mg PO BID [facility] Last Admin: 01/04/19 17:07 Dose: 20 mg Metronidazole (Flagyl) 500 mg in 100 mls @ 100 mls/hr IVPB Q8H [facility]; Protocol Last Admin: 01/04/19 13:28 Dose: 100 mls/hr Levothyroxine Sodium (Synthroid) 75 mcg PO DAILY@0630 [facility] Last Admin: 01/04/19 05:40 Dose: 75 mcg Mefbd-3-Btzh Ethyl Esters (Lovaza) 1 gm PO DAILY [facility] Last Admin: 01/04/19 13:21 Dose: 1 gm Rosuvastatin Calcium (Crestor) 5 mg PO HS [facility] Last Admin: 01/03/19 21:31 Dose: 5 mg Silver Sulfadiazine (Silvadene 1% 20 Gm) 0 ea TOP DAILY [facility] Last Admin: 01/04/19 13:55 Dose: 1 applic - Labs Labs: 01/04/19 07:55 01/04/19 07:55 PT 11.6 SECONDS (9.7-12.2) 12/30/18 23:00 INR 1.1 12/30/18 23:00 APTT 25 SECONDS (21-34) 12/30/18 23:00
[2019-01-04] MEDS: Hydrocortisone 1% Cream (30 GM) TOP SCH (21:34)
--- NOTE | 2019-01-05 05:33 | CARD ---
APPROVED REPORT Date of service: 01/04/2019 Protocol: LEXISCAN Test Type: Lexiscan stress Test Indications: SYNCOPE Medical History: CP Target HR: 137 bpm Resting ECG: NSR W/ LOW VOLTAGE IN LIMB LEADS Resting Heart Rate: 67 bpm Resting Blood Pressure: 132/80mmHg submaximum (85%): 116 bpm TEST SUMMARY PREINFSNHYPERV.24:[id number]/80.1. INFUSIONDOSE 100:300.00.01.067/.0. ADFCYHUNX33:[id number]/80.0. PROCEDURE Pharmacologic stress testing was performed using 0.4mg per 5ml of regadenoson given intravenously over 7-10 seconds. POST EXERCISE Reason for Termination: Protocol Completed Target HR: No Max HR: 67 bpm 64% of Maximum Predicted HR: 137 bpm Exercise duration: 00:30 min:sec, 0 Stage Exercise capacity: 1.0METs Max Blood Pressure: 140/80mmHg Blood Pressure response to exercise: normal resting BP - appropriate response Heart Rate response to exercise: appropriate Chest Pain: No, none Angina index: 0 Arrhythmia: No, none ST Change: No, none Deviation: 0 mm INTERPRETATION Stress EKG Conclusion: NEGATIVE LEXISCAN STRESS TEST NORMAL BP RESPONSE TO LEXISCAN NUCLEAR STUDIES TO BE READ SEPARATELY EXAM: Myocardial Perfusion STRESS/REST Imaging Protocol The imaging protocol used to acquire images was Stress Tc-99m/rest Tc-99m 1 day Rest Spect myocardial perfusion imaging was performed in supine position 45 minutes following the injection of 31.5 mCi of Tc-99 Myoview. Gated Stress Spect was performed 45 minutes after intravenous 13.2 mCi Tc-99 Myoview injection. The images were gated to evaluate regional wall motion and calculate ventricular ejection fraction.Images were reconstructed using backfilter projection method in short horizontal and verticle long axis. Spect slices were generated. RESTING DATA EDV74.49ixWE4.50L/min1/3 Pk. Filling Rate1.20EDV/sec LV Time to Pk. Filling Dneh682.21msec ESV20.00mlMyocardial Xlfp959.00gLV Time to Pk. Ejection Mhra787.71msec Pk. Fill Rate2.65EDV/secAv. Heart Rate65.00bpm EF73.00%Pk. Emptying Rate3.95ESV/sec STRESS DATA EDV76.99oaWT5.70L/min ESV20.00mlMyocardial Xqqh581.00g Pk. Fill Rate2.25EDV/sec EF74.00%Pk. Emptying Rate4.25ESV/sec 1/3 Pk. Filling Rate1.11EDV/secRegional WT score at stress:1.00 LV Time to Pk. Filling Rate:284.40msecRegional WM score at stress:0.00 LV Time to Pk. Ejection Rate:142.05msecSummed WT score at stress:4.00 Av. Heart Rate66.00bpmSummed WM score at stress:0.00 LV Perf. Quant 17 Seg. SSS2.00 17 Seg. SRS1.00 17 Seg. SDS1.00 Stress Defect Extent (% LAD)3.80Rest Defect Extent (% LAD)0.00Rev. Defect Extent (% LAD)3.80 Stress Defect Extent (% LCX)17.50Rest Defect Extent (% LCX)2.50Rev. Defect Extent (% LCX)17.50 Stress Defect Extent (% RCA)0.00Rest Defect Extent (% RCA)0.00Rev. Defect Extent (% RCA)0.00 Stress Defect Extent (% REGIS)7.60Rest Defect Extent (% REGIS)1.50Rev. Defect Extent (% REGIS)7.60 Other Information Quality:Good Left Ventricle LV Function:Left ventricle systolic function is normal. The Ejection Fraction is >55%. Conclusion 1. Small fixed lateral wall defect with no stress induced sichemia.Normal EF
[2019-01-05] MEDS: metroNIDAZOLE IV 500 mg/100 ml 500 MG/100 ML BAG IVPB SCH ×2 (06:54→13:38)
[2019-01-05] MEDS: Levothyroxine 75 MCG TAB PO SCH (06:56)
--- NOTE | 2019-01-05 09:42 | CP.PCM.PN ---
Subjective - Date & Time of Evaluation Date of Evaluation: 01/05/19 Time of Evaluation: 06:45 - Subjective Subjective: Vascular Surgery Dr. Jerry Pt seen and examined @bedside. Pt went for nuclear stress test yesterday, which was negative. No acute events overnight. Pt has no complaints this morning. denies CP, SOB, F/C, abd pain. tolerating diet. Objective - Vital Signs/Intake and Output Vital Signs (last 24 hours): Temp Pulse Resp BP Pulse Ox 97.4 F L 62 20 146/78 98 01/05/19 07:40 01/05/19 07:40 01/05/19 07:40 01/05/19 07:40 01/05/19 07:40 Intake and Output: 01/05/19 01/05/19 06:59 18:59 Intake Total 450 Output Total 1500 Balance -1050 - Medications Medications: Current Medications Amlodipine Besylate (Norvasc) 2.5 mg PO DAILY [facility] Last Admin: 01/04/19 13:21 Dose: 2.5 mg Clopidogrel Bisulfate (Plavix) 75 mg PO DAILY [facility] Last Admin: 01/04/19 13:22 Dose: 75 mg Famotidine (Pepcid) 20 mg PO BID [facility] Last Admin: 01/04/19 17:07 Dose: 20 mg Hydrocortisone (Cortizone 1% Cream) 1 gm TOP BID [facility] Last Admin: 01/04/19 21:34 Dose: 1 applic Metronidazole (Flagyl) 500 mg in 100 mls @ 100 mls/hr IVPB Q8H [facility]; Protocol Last Admin: 01/05/19 06:54 Dose: 100 mls/hr Levothyroxine Sodium (Synthroid) 75 mcg PO DAILY@0630 [facility] Last Admin: 01/05/19 06:56 Dose: 75 mcg Zgwyn-5-Yrye Ethyl Esters (Lovaza) 1 gm PO DAILY [facility] Last Admin: 01/04/19 13:21 Dose: 1 gm Rosuvastatin Calcium (Crestor) 5 mg PO HS [facility] Last Admin: 01/04/19 21:24 Dose: 5 mg Silver Sulfadiazine (Silvadene 1% 20 Gm) 0 ea TOP DAILY [facility] Last Admin: 01/04/19 13:55 Dose: 1 applic - Labs Labs: 01/04/19 07:55 01/04/19 07:55 PT 11.6 SECONDS (9.7-12.2) 12/30/18 23:00 INR 1.1 12/30/18 23:00 APTT 25 SECONDS (21-34) 12/30/18 23:00 - Constitutional Appears: Non-toxic, No Acute Distress - Head Exam Head Exam: NORMAL INSPECTION - Eye Exam Eye Exam: Normal appearance - ENT Exam ENT Exam: Mucous Membranes Moist - Respiratory Exam Respiratory Exam: NORMAL BREATHING PATTERN. absent: Accessory Muscle Use, Respiratory Distress - Cardiovascular Exam Cardiovascular Exam: absent: Bradycardia, Tachycardia - GI/Abdominal Exam GI & Abdominal Exam: Soft, Pulsatile Mass. absent: Distended, Tenderness - Extremities Exam Extremities Exam: Normal Inspection - Neurological Exam Neurological Exam: Alert, Awake - Psychiatric Exam Psychiatric exam: Normal Affect, Normal Mood - Skin Skin Exam: Dry, Intact, Normal Color, Warm Assessment and Plan - Assessment and Plan (Free Text) Assessment: 83 y/o M w/ Abdominal aortic aneurysm Plan: - plan for EVAR - Per Cards: pt moderate to high risk for EVAR and high risk for open AAA repair - cont medical optimization Pt discussed w/ Dr. Rosalino Hung DO PGY3
[2019-01-05] MEDS: Omega-3-Acid Ethyl Esters 1 GM Cap PO SCH (11:20)
[2019-01-05] MEDS: Silver Sulfadiazine 1% Cream (20 gm) TOP SCH (11:21)
[2019-01-05] MEDS: Hydrocortisone 1% Cream (30 GM) TOP SCH ×2 (11:40→22:23)
--- NOTE | 2019-01-05 14:34 | CP.PCM.PN ---
Subjective - Date & Time of Evaluation Date of Evaluation: 01/05/19 Time of Evaluation: 13:15 - Subjective Subjective: f/u abd pain present. Feeling better., Less abd pain. Still loose stools Denies RB, melena, fever, chills, Sz, CP, SOB, OLIVIER, cough Objective - Vital Signs/Intake and Output Vital Signs (last 24 hours): Temp Pulse Resp BP Pulse Ox 97.4 F L 62 20 146/78 98 01/05/19 07:40 01/05/19 07:40 01/05/19 07:40 01/05/19 07:40 01/05/19 07:40 Intake and Output: 01/05/19 01/05/19 06:59 18:59 Intake Total 450 Output Total 1500 Balance -1050 - Medications Medications: Current Medications Amlodipine Besylate (Norvasc) 2.5 mg PO DAILY [facility] Last Admin: 01/05/19 11:20 Dose: 2.5 mg Clopidogrel Bisulfate (Plavix) 75 mg PO DAILY [facility] Last Admin: 01/05/19 11:20 Dose: 75 mg Famotidine (Pepcid) 20 mg PO BID [facility] Last Admin: 01/05/19 11:20 Dose: 20 mg Hydrocortisone (Cortizone 1% Cream) 1 gm TOP BID [facility] Last Admin: 01/05/19 11:40 Dose: Not Given Levothyroxine Sodium (Synthroid) 75 mcg PO DAILY@0630 [facility] Last Admin: 01/05/19 06:56 Dose: 75 mcg Rqswi-3-Ewgc Ethyl Esters (Lovaza) 1 gm PO DAILY [facility] Last Admin: 01/05/19 11:20 Dose: 1 gm Rosuvastatin Calcium (Crestor) 5 mg PO HS [facility] Last Admin: 01/04/19 21:24 Dose: 5 mg Silver Sulfadiazine (Silvadene 1% 20 Gm) 0 ea TOP DAILY [facility] Last Admin: 01/05/19 11:21 Dose: 1 applic - Labs Labs: 01/04/19 07:55 01/04/19 07:55 PT 11.6 SECONDS (9.7-12.2) 12/30/18 23:00 INR 1.1 12/30/18 23:00 APTT 25 SECONDS (21-34) 12/30/18 23:00 - Constitutional Appears: Well - Eye Exam Additional comments: blind - Respiratory Exam Respiratory Exam: Clear to Ausculation Bilateral - Cardiovascular Exam Cardiovascular Exam: RRR - GI/Abdominal Exam GI & Abdominal Exam: Soft, Normal Bowel Sounds. absent: Guarding, Rigid, Tenderness, Rebound Assessment and Plan (1) Enteritis Assessment & Plan: improving.. ADvance diet Status: Acute (2) Abdominal pain Assessment & Plan: better Status: Acute (3) Aortic aneurysm Assessment & Plan: For surgery Status: Acute (4) Syncope Status: Acute (5) Vomiting Assessment & Plan: better Status: Acute (6) CAD (coronary artery disease) Status: Chronic
--- NOTE | 2019-01-05 15:12 | CP.PCM.PN ---
Subjective - Date & Time of Evaluation Date of Evaluation: 01/05/19 Time of Evaluation: 15:12 - Subjective Subjective: Less abdominal pain. Objective - Vital Signs/Intake and Output Vital Signs (last 24 hours): Temp Pulse Resp BP Pulse Ox 97.4 F L 62 20 146/78 98 01/05/19 07:40 01/05/19 07:40 01/05/19 07:40 01/05/19 07:40 01/05/19 07:40 Intake and Output: 01/05/19 01/05/19 11:59 23:59 Intake Total 100 Output Total 900 Balance -800 - Medications Medications: Current Medications Amlodipine Besylate (Norvasc) 2.5 mg PO DAILY [facility] Last Admin: 01/05/19 11:20 Dose: 2.5 mg Clopidogrel Bisulfate (Plavix) 75 mg PO DAILY [facility] Last Admin: 01/05/19 11:20 Dose: 75 mg Famotidine (Pepcid) 20 mg PO BID [facility] Last Admin: 01/05/19 11:20 Dose: 20 mg Hydrocortisone (Cortizone 1% Cream) 1 gm TOP BID [facility] Last Admin: 01/05/19 11:40 Dose: Not Given Levothyroxine Sodium (Synthroid) 75 mcg PO DAILY@0630 [facility] Last Admin: 01/05/19 06:56 Dose: 75 mcg Nystatin (Nystop Topical Powder) 1 applic TOP BID [facility] Rkewp-4-Iqrg Ethyl Esters (Lovaza) 1 gm PO DAILY [facility] Last Admin: 01/05/19 11:20 Dose: 1 gm Rosuvastatin Calcium (Crestor) 5 mg PO HS [facility] Last Admin: 01/04/19 21:24 Dose: 5 mg Silver Sulfadiazine (Silvadene 1% 20 Gm) 0 ea TOP DAILY [facility] Last Admin: 01/05/19 11:21 Dose: 1 applic - Labs Labs: 01/04/19 07:55 01/04/19 07:55 PT 11.6 SECONDS (9.7-12.2) 12/30/18 23:00 INR 1.1 12/30/18 23:00 APTT 25 SECONDS (21-34) 12/30/18 23:00 - Constitutional Appears: Chronically Ill - Head Exam Head Exam: NORMOCEPHALIC - Eye Exam Eye Exam: Normal appearance - ENT Exam ENT Exam: Mucous Membranes Dry - Neck Exam Neck Exam: Full ROM - Respiratory Exam Respiratory Exam: Decreased Breath Sounds - Cardiovascular Exam Cardiovascular Exam: REGULAR RHYTHM, +S1, +S2 - GI/Abdominal Exam GI & Abdominal Exam: Normal Bowel Sounds - Extremities Exam Extremities Exam: Normal Inspection - Neurological Exam Neurological Exam: Alert, Awake, CN II-XII Intact, Oriented x3 - Psychiatric Exam Psychiatric exam: Flat Affect - Skin Skin Exam: Pallor Assessment and Plan (1) Right hand weakness Status: Acute (2) Syncope Status: Acute (3) Vomiting Status: Acute (4) CAD (coronary artery disease) Status: Chronic (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
--- NOTE | 2019-01-05 23:49 | CP.PCM.PN ---
Subjective - Date & Time of Evaluation Date of Evaluation: 01/05/19 Time of Evaluation: 12:05 - Subjective Subjective: Patient seen and evaluated Deneis chest pain and dyspnea at bedside Review of Systems - Constitutional Constitutional: As Per HPI - EENT Eyes: As Per HPI - Cardiovascular Cardiovascular: As Per HPI - Respiratory Respiratory: As Per HPI Physical Exam - Constitutional Appears: Non-toxic - Head Exam Additional comments: Abrasion in the occipital area - Eye Exam Eye Exam: Normal appearance - ENT Exam ENT Exam: Mucous Membranes Dry - Neck Exam Neck exam: Positive for: Full Rom - Respiratory Exam Respiratory Exam: Clear to Auscultation Bilateral - Cardiovascular Exam Cardiovascular Exam: REGULAR RHYTHM, +S1, +S2 - GI/Abdominal Exam GI & Abdominal Exam: Normal Bowel Sounds - Extremities Exam Extremities exam: Positive for: normal inspection - Neurological Exam Neurological exam: Alert, CN II-XII Intact, Oriented x3 - Psychiatric Exam Psychiatric exam: Flat Affect - Skin Skin Exam: Normal Color Assessment & Plan - Assessment and Plan (Free Text) Assessment: 83 M with hx of CAD s/p CABG several years ago, HTN, CVA, S/P PPM Now with large AAA and Thoracic Aortic aneurysm Needs pre Op cardiac risk assessment ECHO: Normal EF. No major valvular issues Stress Test: No stress induced ischemia PPM: Normal function However this 83 year old gentleman with Hx of CABG, HTN, Hyperlipidemia, s/p PPM, CVA and Aortic aneurysm Assessed as moderate to high risk for cardiac events for Endovascular AAA repair High risk for Open AAA repair If benefit outweighs the risk please proceed with the surgery Patient and family aware of the risk and benefits of the procedure and surgery Objective - Vital Signs/Intake and Output Vital Signs (last 24 hours): Temp Pulse Resp BP Pulse Ox 98 F 65 20 146/84 98 01/05/19 15:00 01/05/19 15:00 01/05/19 15:00 01/05/19 15:00 01/05/19 15:00 - Medications Medications: Current Medications Amlodipine Besylate (Norvasc) 2.5 mg PO DAILY [facility] Last Admin: 01/05/19 11:20 Dose: 2.5 mg Clopidogrel Bisulfate (Plavix) 75 mg PO DAILY [facility] Last Admin: 01/05/19 11:20 Dose: 75 mg Famotidine (Pepcid) 20 mg PO BID [facility] Last Admin: 01/05/19 22:22 Dose: 20 mg Hydrocortisone (Cortizone 1% Cream) 1 gm TOP BID [facility] Last Admin: 01/05/19 22:23 Dose: 1 applic Levothyroxine Sodium (Synthroid) 75 mcg PO DAILY@0630 [facility] Last Admin: 01/05/19 06:56 Dose: 75 mcg Nystatin (Nystop Topical Powder) 1 applic TOP BID [facility] Last Admin: 01/05/19 22:22 Dose: 1 applic Vcshb-5-Yfzh Ethyl Esters (Lovaza) 1 gm PO DAILY [facility] Last Admin: 01/05/19 11:20 Dose: 1 gm Rosuvastatin Calcium (Crestor) 5 mg PO HS [facility] Last Admin: 01/05/19 22:25 Dose: 5 mg Silver Sulfadiazine (Silvadene 1% 20 Gm) 0 ea TOP DAILY [facility] Last Admin: 01/05/19 11:21 Dose: 1 applic - Labs Labs: 01/04/19 07:55 01/04/19 07:55 PT 11.6 SECONDS (9.7-12.2) 12/30/18 23:00 INR 1.1 12/30/18 23:00 APTT 25 SECONDS (21-34) 12/30/18 23:00
[2019-01-06] MEDS: Levothyroxine 75 MCG TAB PO SCH (06:30)
[2019-01-06] MEDS: Hydrocortisone 1% Cream (30 GM) TOP SCH ×2 (09:56→22:21)
[2019-01-06] MEDS: Omega-3-Acid Ethyl Esters 1 GM Cap PO SCH (09:56)
[2019-01-06] MEDS: Silver Sulfadiazine 1% Cream (20 gm) TOP SCH (09:58)
--- NOTE | 2019-01-06 11:32 | CP.PCM.PN ---
Subjective - Date & Time of Evaluation Date of Evaluation: 01/06/19 Time of Evaluation: 11:30 - Subjective Subjective: SURGERY NOTE FOR DR. BEASLEY 83M seen and examined at bedside. Patient doing well, ambulating, denies pain. Objective - Vital Signs/Intake and Output Vital Signs (last 24 hours): Temp Pulse Resp BP Pulse Ox 97.8 F 65 20 121/76 97 01/06/19 07:40 01/06/19 07:40 01/06/19 07:40 01/06/19 07:40 01/06/19 07:40 Intake and Output: 01/06/19 01/06/19 06:59 18:59 Output Total 400 Balance -400 - Medications Medications: Current Medications Amlodipine Besylate (Norvasc) 2.5 mg PO DAILY [facility] Last Admin: 01/06/19 09:56 Dose: 2.5 mg Clopidogrel Bisulfate (Plavix) 75 mg PO DAILY [facility] Last Admin: 01/06/19 09:56 Dose: 75 mg Famotidine (Pepcid) 20 mg PO BID [facility] Last Admin: 01/06/19 09:56 Dose: 20 mg Hydrocortisone (Cortizone 1% Cream) 1 gm TOP BID [facility] Last Admin: 01/06/19 09:56 Dose: 1 applic Levothyroxine Sodium (Synthroid) 75 mcg PO DAILY@0630 [facility] Last Admin: 01/06/19 06:30 Dose: 75 mcg Syplr-9-Lfbr Ethyl Esters (Lovaza) 1 gm PO DAILY [facility] Last Admin: 01/06/19 09:56 Dose: 1 gm Rosuvastatin Calcium (Crestor) 5 mg PO HS [facility] Last Admin: 01/05/19 22:25 Dose: 5 mg Silver Sulfadiazine (Silvadene 1% 20 Gm) 0 ea TOP DAILY [facility] Last Admin: 01/06/19 09:58 Dose: 1 applic - Labs Labs: 01/04/19 07:55 01/04/19 07:55 PT 11.6 SECONDS (9.7-12.2) 12/30/18 23:00 INR 1.1 12/30/18 23:00 APTT 25 SECONDS (21-34) 12/30/18 23:00 - Constitutional Appears: Non-toxic, No Acute Distress - Respiratory Exam Respiratory Exam: Clear to Ausculation Bilateral, NORMAL BREATHING PATTERN - Cardiovascular Exam Cardiovascular Exam: REGULAR RHYTHM, +S1, +S2 - GI/Abdominal Exam GI & Abdominal Exam: Soft, Pulsatile Mass. absent: Distended, Firm, Guarding, Rigid, Tenderness - Neurological Exam Neurological Exam: Alert, Awake Assessment and Plan - Assessment and Plan (Free Text) Assessment: 83M with abdominal aortic aneurysm Plan: Plan for OR Booked for tomorrow Will pre-Op Further recs discuss with Dr. Rosalino Peck, PGY3
--- NOTE | 2019-01-06 12:13 | CP.PCM.PN ---
Subjective - Date & Time of Evaluation Date of Evaluation: 01/06/19 Time of Evaluation: 12:10 - Subjective Subjective: Diarrhea resolved. Main c/o is progressive rash on back and groid. Flagyl stopped yesterday Going for AAA repair likely tomorrow Objective - Vital Signs/Intake and Output Vital Signs (last 24 hours): Temp Pulse Resp BP Pulse Ox 97.8 F 65 20 121/76 97 01/06/19 07:40 01/06/19 07:40 01/06/19 07:40 01/06/19 07:40 01/06/19 07:40 Intake and Output: 01/06/19 01/06/19 06:59 18:59 Output Total 400 Balance -400 - Medications Medications: Current Medications Amlodipine Besylate (Norvasc) 2.5 mg PO DAILY [facility] Last Admin: 01/06/19 09:56 Dose: 2.5 mg Clopidogrel Bisulfate (Plavix) 75 mg PO DAILY [facility] Last Admin: 01/06/19 09:56 Dose: 75 mg Famotidine (Pepcid) 20 mg PO BID [facility] Last Admin: 01/06/19 09:56 Dose: 20 mg Hydrocortisone (Cortizone 1% Cream) 1 gm TOP BID [facility] Last Admin: 01/06/19 09:56 Dose: 1 applic Levothyroxine Sodium (Synthroid) 75 mcg PO DAILY@0630 [facility] Last Admin: 01/06/19 06:30 Dose: 75 mcg Pvysc-4-Vtct Ethyl Esters (Lovaza) 1 gm PO DAILY [facility] Last Admin: 01/06/19 09:56 Dose: 1 gm Rosuvastatin Calcium (Crestor) 5 mg PO HS [facility] Last Admin: 01/05/19 22:25 Dose: 5 mg Silver Sulfadiazine (Silvadene 1% 20 Gm) 0 ea TOP DAILY [facility] Last Admin: 01/06/19 09:58 Dose: 1 applic - Labs Labs: 01/04/19 07:55 01/04/19 07:55 PT 11.6 SECONDS (9.7-12.2) 12/30/18 23:00 INR 1.1 12/30/18 23:00 APTT 25 SECONDS (21-34) 12/30/18 23:00 - Constitutional Appears: No Acute Distress - Head Exam Head Exam: NORMOCEPHALIC - Respiratory Exam Respiratory Exam: NORMAL BREATHING PATTERN - Cardiovascular Exam Cardiovascular Exam: REGULAR RHYTHM - GI/Abdominal Exam GI & Abdominal Exam: Soft. absent: Tenderness - Back Exam Back Exam: rash noted (rash over entire back) Assessment and Plan (1) Aortic aneurysm Assessment & Plan: plan per vascular Status: Acute (2) Enteritis Assessment & Plan: no diarrhea. Seems stable Status: Acute
[2019-01-06] MEDS: DiphenhydrAMINE 50 mg/ml Inj IVP SCH ×2 (12:31→22:20)
[2019-01-06] MEDS ORDERED: methylPREDNISolone 60 MG in Sodium Chloride 0.9% 100 ML IVPB ONE (13:12)
--- NOTE | 2019-01-06 15:51 | RAD ---
Date of service: 01/06/2019 HISTORY: Preoperative examination COMPARISON: None. TECHNIQUE: Chest PA and lateral FINDINGS: LINES AND TUBES: None. LUNG AND PLEURA: The lungs are well inflated and clear. There is mild pulmonary venous congestion. No pleural effusion or pneumothorax. HEART AND MEDIASTINUM: There is persistent mild cardiomegaly. Status post CABG. There is stable position of left-sided dual lead permanent pacing device. There are aortic atherosclerotic calcifications present. The hilar and mediastinal contours are within normal limits. SKELETAL STRUCTURES: The bony structures are within normal limits for the patient's age. VISUALIZED UPPER ABDOMEN: Normal. OTHER FINDINGS: None. IMPRESSION: No active pulmonary disease.
[2019-01-06 17:11] LABS: BASO % 0.8 % (0.0-2.0); EOS # 0.7 K/uL (0.0-0.7); EOS % 10.9 % (0.0-4.0); HEMOGLOBIN 13.4 g/dL (12.0-18.0); LYMPH # 0.6 K/uL (1.0-4.3); LYMPH % 10.4 % (20.0-40.0); MEAN CELL VOLUME 93.5 fL (80.0-94.0); MEAN CORPUSCULAR HEMOGLOBIN 30.9 pg (27.0-31.0); MONO # 0.3 K/uL (0.0-0.8); MONO % 4.7 % (0.0-10.0); NEUT # 4.4 K/uL (1.8-7.0); NEUT % 73.2 % (50.0-75.0); RBC 4.33 Mil/uL (4.40-5.90); RED CELL DISTRIBUTION WIDTH 13.8 % (11.5-14.5)
[2019-01-06 17:28] LABS: BLOOD UREA NITROGEN 24 mg/dL (9-20); GFR NON-AFRICAN AMERICAN > 60
--- NOTE | 2019-01-06 18:11 | CP.PCM.PN ---
Subjective - Date & Time of Evaluation Date of Evaluation: 01/06/19 Time of Evaluation: 18:15 - Subjective Subjective: Patient general condition improving. He presented with a groin, axilla and back rash possible secondary to allergic reaction or intertrigo. Patient started on topical nystatin and steroid. Benadryl and iv steroid. For aortic aneurism re pair in am Objective - Vital Signs/Intake and Output Vital Signs (last 24 hours): Temp Pulse Resp BP Pulse Ox 98 F 71 20 134/78 95 01/06/19 15:30 01/06/19 15:30 01/06/19 15:30 01/06/19 15:30 01/06/19 15:30 Intake and Output: 01/06/19 01/06/19 11:59 23:59 Output Total 400 Balance -400 - Medications Medications: Current Medications Amlodipine Besylate (Norvasc) 2.5 mg PO DAILY [facility] Last Admin: 01/06/19 09:56 Dose: 2.5 mg Clopidogrel Bisulfate (Plavix) 75 mg PO DAILY [facility] Last Admin: 01/06/19 09:56 Dose: 75 mg Diphenhydramine HCl (Benadryl) 50 mg IVP BID [facility] Last Admin: 01/06/19 12:31 Dose: 50 mg Famotidine (Pepcid) 20 mg PO BID [facility] Last Admin: 01/06/19 09:56 Dose: 20 mg Hydrocortisone (Cortizone 1% Cream) 1 gm TOP BID [facility] Last Admin: 01/06/19 09:56 Dose: 1 applic Levothyroxine Sodium (Synthroid) 75 mcg PO DAILY@0630 [facility] Last Admin: 01/06/19 06:30 Dose: 75 mcg Nystatin (Nystop Topical Powder) 1 applic TOP BID [facility] Nmwca-2-Fewd Ethyl Esters (Lovaza) 1 gm PO DAILY [facility] Last Admin: 01/06/19 09:56 Dose: 1 gm Rosuvastatin Calcium (Crestor) 5 mg PO HS [facility] Last Admin: 01/05/19 22:25 Dose: 5 mg Silver Sulfadiazine (Silvadene 1% 20 Gm) 0 ea TOP DAILY [facility] Last Admin: 01/06/19 09:58 Dose: 1 applic - Labs Labs: 01/06/19 17:03 01/06/19 17:03 PT 11.6 SECONDS (9.7-12.2) 12/30/18 23:00 INR 1.1 12/30/18 23:00 APTT 25 SECONDS (21-34) 12/30/18 23:00 - Constitutional Appears: Non-toxic - Head Exam Head Exam: NORMOCEPHALIC - Eye Exam Eye Exam: Normal appearance - ENT Exam ENT Exam: Mucous Membranes Moist - Neck Exam Neck Exam: Full ROM - Respiratory Exam Respiratory Exam: Clear to Ausculation Bilateral - Cardiovascular Exam Cardiovascular Exam: REGULAR RHYTHM, +S1, +S2 - GI/Abdominal Exam GI & Abdominal Exam: Normal Bowel Sounds - Extremities Exam Extremities Exam: Normal Inspection - Neurological Exam Neurological Exam: Alert, Awake, CN II-XII Intact - Psychiatric Exam Psychiatric exam: Normal Affect - Skin Skin Exam: Normal Color, Rash Assessment and Plan (1) Right hand weakness Status: Acute (2) Syncope Status: Acute (3) Vomiting Status: Acute (4) CAD (coronary artery disease) Status: Chronic (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
[2019-01-06 19:32] LABS: INR 1.1; PROTHROMBIN TIME 12.3 SECONDS (9.7-12.2)
--- NOTE | 2019-01-06 22:15 | CP.PCM.PN ---
Subjective - Date & Time of Evaluation Date of Evaluation: 01/06/19 Time of Evaluation: 19:15 - Subjective Subjective: Patient seen and evaluated at bed side Deneis chest pain and dyspnea For EVAR tomorrow Review of Systems - Constitutional Constitutional: As Per HPI - EENT Eyes: As Per HPI - Cardiovascular Cardiovascular: As Per HPI - Respiratory Respiratory: As Per HPI Physical Exam - Constitutional Appears: Non-toxic - Head Exam Additional comments: Abrasion in the occipital area - Eye Exam Eye Exam: Normal appearance - ENT Exam ENT Exam: Mucous Membranes Dry - Neck Exam Neck exam: Positive for: Full Rom - Respiratory Exam Respiratory Exam: Clear to Auscultation Bilateral - Cardiovascular Exam Cardiovascular Exam: REGULAR RHYTHM, +S1, +S2 - GI/Abdominal Exam GI & Abdominal Exam: Normal Bowel Sounds - Extremities Exam Extremities exam: Positive for: normal inspection - Neurological Exam Neurological exam: Alert, CN II-XII Intact, Oriented x3 - Psychiatric Exam Psychiatric exam: Flat Affect - Skin Skin Exam: Normal Color Assessment & Plan - Assessment and Plan (Free Text) Assessment: 83 M with hx of CAD s/p CABG several years ago, HTN, CVA, S/P PPM Now with large AAA and Thoracic Aortic aneurysm ECHO: Normal EF. No major valvular issues Stress Test: No stress induced ischemia PPM: Normal function However this 83 year old gentleman with Hx of CABG, HTN, Hyperlipidemia, s/p PPM, CVA and Aortic aneurysm Assessed as moderate to high risk for cardiac events for Endovascular AAA repair High risk for Open AAA repair If benefit outweighs the risk please proceed with the surgery Patient and family aware of the risk and benefits of the procedure and surgery Objective - Vital Signs/Intake and Output Vital Signs (last 24 hours): Temp Pulse Resp BP Pulse Ox 98 F 71 20 134/78 95 01/06/19 15:30 01/06/19 15:30 01/06/19 15:30 01/06/19 15:30 01/06/19 15:30 - Medications Medications: Current Medications Amlodipine Besylate (Norvasc) 2.5 mg PO DAILY [facility] Last Admin: 01/06/19 09:56 Dose: 2.5 mg Clopidogrel Bisulfate (Plavix) 75 mg PO DAILY [facility] Last Admin: 01/06/19 09:56 Dose: 75 mg Diphenhydramine HCl (Benadryl) 50 mg IVP BID [facility] Last Admin: 01/06/19 12:31 Dose: 50 mg Famotidine (Pepcid) 20 mg PO BID [facility] Last Admin: 01/06/19 19:14 Dose: 20 mg Hydrocortisone (Cortizone 1% Cream) 1 gm TOP BID [facility] Last Admin: 01/06/19 09:56 Dose: 1 applic Levothyroxine Sodium (Synthroid) 75 mcg PO DAILY@0630 [facility] Last Admin: 01/06/19 06:30 Dose: 75 mcg Nystatin (Nystop Topical Powder) 1 applic TOP BID [facility] Last Admin: 01/06/19 19:14 Dose: 1 applic Blqqg-7-Aapf Ethyl Esters (Lovaza) 1 gm PO DAILY [facility] Last Admin: 01/06/19 09:56 Dose: 1 gm Rosuvastatin Calcium (Crestor) 5 mg PO HS [facility] Last Admin: 01/05/19 22:25 Dose: 5 mg Silver Sulfadiazine (Silvadene 1% 20 Gm) 0 ea TOP DAILY [facility] Last Admin: 01/06/19 09:58 Dose: 1 applic - Labs Labs: 01/06/19 17:03 01/06/19 17:03 PT 12.3 SECONDS (9.7-12.2) H 01/06/19 16:45 INR 1.1 01/06/19 16:45 APTT 25 SECONDS (21-34) 12/30/18 23:00
[2019-01-07] MEDS: Levothyroxine 75 MCG TAB PO SCH (05:45)
[2019-01-07 07:28] LABS: PROTHROMBIN TIME 12.3 SECONDS (9.7-12.2)
[2019-01-07 07:29] LABS: INR 1.1
[2019-01-07 08:15] LABS: BLOOD UREA NITROGEN 27 mg/dL (9-20); CALCIUM 8.9 mg/dl (8.6-10.4); GFR NON-AFRICAN AMERICAN > 60
[2019-01-07 08:25] LABS: BASO % 0.4 % (0.0-2.0); EOS % 0.4 % (0.0-4.0); HEMOGLOBIN 14.2 g/dL (12.0-18.0); LYMPH # 0.6 K/uL (1.0-4.3); LYMPH % 7.3 % (20.0-40.0); MEAN CORPUSCULAR HEMOGLOBIN 31.4 pg (27.0-31.0); MEAN CORPUSCULAR HGB CONC 32.7 g/dL (33.0-37.0); MEAN PLATELET VOLUME 7.9 fL (7.2-11.7); MONO # 0.3 K/uL (0.0-0.8); MONO % 3.1 % (0.0-10.0); NEUT # 7.3 K/uL (1.8-7.0); NEUT % 88.8 % (50.0-75.0); NRBC % 0.3 % (0.0-2.0); PLATELET COUNT 197 K/uL (130-400); RBC 4.51 Mil/uL (4.40-5.90); RED CELL DISTRIBUTION WIDTH 13.9 % (11.5-14.5); WHITE BLOOD COUNT 8.3 K/uL (4.8-10.8)
[2019-01-07 08:26] LABS: MEAN CELL VOLUME 96.2 fL (80.0-94.0)
[2019-01-07 09:31] LABS: LYMPHOCYTE 3 % (20-40); TOTAL CELLS COUNTED 100
[2019-01-07 09:34] LABS: MONOCYTE 1 % (0-10); NEUTROPHIL 96 % (50-75); PLATELET ESTIMATE NORMAL (NORMAL)
[2019-01-07] MEDS ORDERED: Iodixanol 320 MG/ML 200 ML BOTTLE IV ONE (10:15)
[2019-01-07] MEDS ORDERED: HEPARIN-NS 5,000 UNITS/500 ML 10,000 UNIT/1,000 ML BAG IV ONE ×3 (10:15→13:16)
[2019-01-07] MEDS ORDERED: Lidocaine 2% MPF (5 ml) Inj ONE (10:16)
[2019-01-07] MEDS ORDERED: ceFAZolin 1 gm in NS 1 GM/100 ML BAG IVPB ONE (10:16)
[2019-01-07] MEDS: Omega-3-Acid Ethyl Esters 1 GM Cap PO SCH (10:46)
--- NOTE | 2019-01-07 11:06 | CP.PCM.PN ---
Subjective - Date & Time of Evaluation Date of Evaluation: 01/07/19 Time of Evaluation: 10:45 - Subjective Subjective: f/u enteritis Denies abdom pain, fever, chills, Sz, LOC, OLIVIER, cough, RB, melena. RASH- starting to improve. Objective - Vital Signs/Intake and Output Vital Signs (last 24 hours): Temp Pulse Resp BP Pulse Ox 97.6 F 68 20 133/76 98 01/07/19 09:09 01/07/19 09:09 01/07/19 09:09 01/07/19 09:09 01/07/19 09:09 - Medications Medications: Current Medications Amlodipine Besylate (Norvasc) 2.5 mg PO DAILY [facility] Last Admin: 01/07/19 10:45 Dose: 2.5 mg Clopidogrel Bisulfate (Plavix) 75 mg PO DAILY [facility] Last Admin: 01/07/19 10:45 Dose: 75 mg Diphenhydramine HCl (Benadryl) 50 mg IVP BID [facility] Last Admin: 01/06/19 22:20 Dose: 50 mg Famotidine (Pepcid) 20 mg PO BID [facility] Last Admin: 01/07/19 10:45 Dose: 20 mg Hydrocortisone (Cortizone 1% Cream) 1 gm TOP BID [facility] Last Admin: 01/06/19 22:21 Dose: 1 applic Levothyroxine Sodium (Synthroid) 75 mcg PO DAILY@0630 [facility] Last Admin: 01/07/19 05:45 Dose: Not Given Nystatin (Nystop Topical Powder) 1 applic TOP BID [facility] Last Admin: 01/06/19 19:14 Dose: 1 applic Uxapr-9-Mfhd Ethyl Esters (Lovaza) 1 gm PO DAILY [facility] Last Admin: 01/07/19 10:46 Dose: 1 gm Rosuvastatin Calcium (Crestor) 5 mg PO HS [facility] Last Admin: 01/06/19 22:22 Dose: 5 mg Silver Sulfadiazine (Silvadene 1% 20 Gm) 0 ea TOP DAILY [facility] Last Admin: 01/06/19 09:58 Dose: 1 applic - Labs Labs: 01/07/19 07:05 01/07/19 07:05 PT 12.3 SECONDS (9.7-12.2) H 01/07/19 07:05 INR 1.1 01/07/19 07:05 APTT 25 SECONDS (21-34) 12/30/18 23:00 - Constitutional Appears: Non-toxic - Neck Exam Neck Exam: absent: Tenderness - Respiratory Exam Respiratory Exam: Clear to Ausculation Bilateral - Cardiovascular Exam Cardiovascular Exam: RRR - GI/Abdominal Exam GI & Abdominal Exam: Soft, Normal Bowel Sounds. absent: Guarding, Tenderness, Mass, Rebound - Extremities Exam Extremities Exam: absent: Calf Tenderness - Neurological Exam Neurological Exam: Alert, Oriented x3 Assessment and Plan (1) Enteritis Assessment & Plan: Improving. No diarrhea x 2 days. No BM today. ABdom pain improving.. Now watch for returning to constipation. Status: Acute (2) Abdominal pain Assessment & Plan: better Status: Acute (3) Aortic aneurysm Status: Acute (4) Syncope Status: Acute (5) Vomiting Assessment & Plan: better. Status: Acute (6) CAD (coronary artery disease) Status: Chronic (7) Rash Status: Acute
[2019-01-07] MEDS ORDERED: Midazolam 2 MG/2 ML VIAL ONE (11:08)
[2019-01-07] MEDS ORDERED: Rocuronium 10 mg/ml (10 ml) ONE (11:08)
[2019-01-07] MEDS ORDERED: Propofol 10 mg/ml Inj (20 ML) ONE (11:33)
[2019-01-07] MEDS: Hydrocortisone 1% Cream (30 GM) TOP SCH ×2 (12:42→18:05)
[2019-01-07] MEDS: DiphenhydrAMINE 50 mg/ml Inj IVP SCH (12:42)
[2019-01-07] MEDS: Silver Sulfadiazine 1% Cream (20 gm) TOP SCH (12:43)
[2019-01-07] MEDS ORDERED: Neostigmine 1:1000 (1 mg/ml) Inj ONE (15:21)
--- NOTE | 2019-01-07 15:33 | PCM.SURG1 ---
Surgeon's Initial Post Op Note - Surgeon's Notes Surgeon: Dr. Jerry Heel Stainer: Dr. Hung PGY3 Type of Anesthesia: General Endo Pre-Operative Diagnosis: AAA Operative Findings: see dictation Post-Operative Diagnosis: same Operation Performed: EVAR w/ 3 stents and balloon dilation Specimen/Specimens Removed: none Estimated Blood Loss: EBL {In ML}: 500 Blood Products Given: N/A Drains Used: No Drains Post-Op Condition: Good Date of Surgery/Procedure: 01/07/19 Time of Surgery/Procedure: 15:33
[2019-01-07] MEDS: HYDROmorphone 0.5 mg/0.5 ml ISec IVP PRN ×3 (15:49→16:19)
[2019-01-07] MEDS ORDERED: Lactated Ringer's 1,000 ML IV ONE (16:35)
[2019-01-07 16:44] LABS: MEAN PLATELET VOLUME 7.4 fL (7.2-11.7); RBC 3.62 Mil/uL (4.40-5.90); RED CELL DISTRIBUTION WIDTH 13.9 % (11.5-14.5)
--- NOTE | 2019-01-07 16:47 | CP.PCM.PN ---
Subjective - Date & Time of Evaluation Date of Evaluation: 01/07/19 Time of Evaluation: 16:47 - Subjective Subjective: Pateitn in post op. c/o same disconfort in sugical site . No sob, cp, nv, dyspnea. Objective - Vital Signs/Intake and Output Vital Signs (last 24 hours): Temp Pulse Resp BP Pulse Ox 98 F 72 10 L 102/53 L 100 01/07/19 15:27 01/07/19 16:00 01/07/19 16:00 01/07/19 16:00 01/07/19 16:00 Intake and Output: 01/07/19 01/07/19 11:59 23:59 Intake Total 2100 0 Balance 2100 0 - Medications Medications: Current Medications Acetaminophen (Tylenol 325mg Tab) 650 mg PO Q6 [facility] Amlodipine Besylate (Norvasc) 2.5 mg PO DAILY [facility] Last Admin: 01/07/19 10:45 Dose: 2.5 mg Clopidogrel Bisulfate (Plavix) 75 mg PO DAILY [facility] Last Admin: 01/07/19 10:45 Dose: 75 mg Diphenhydramine HCl (Benadryl) 50 mg IVP BID [facility] Last Admin: 01/07/19 12:42 Dose: Not Given Famotidine (Pepcid) 20 mg PO BID [facility] Last Admin: 01/07/19 10:45 Dose: 20 mg Hydrocortisone (Cortizone 1% Cream) 1 gm TOP BID [facility] Last Admin: 01/07/19 12:42 Dose: Not Given Hydromorphone HCl (Dilaudid) 0.5 mg IVP Q5M PRN PRN Reason: Pain, moderate (4-7) Stop: 01/07/19 17:11 Cefazolin Sodium 500 mg/ (Sodium Chloride) 50 mls @ 100 mls/hr IVPB Q8H [facility]; Protocol Lactated Ringer's (Lactated Ringer's) 1,000 mls @ 83 mls/hr IV .Q12H3M [facility] Levothyroxine Sodium (Synthroid) 75 mcg PO DAILY@0630 [facility] Last Admin: 01/07/19 05:45 Dose: Not Given Nystatin (Nystop Topical Powder) 1 applic TOP BID [facility] Last Admin: 01/07/19 12:43 Dose: Not Given Nahfk-3-[id number] Ethyl Esters (Lovaza) 1 gm PO DAILY [facility] Last Admin: 01/07/19 10:46 Dose: 1 gm Ondansetron HCl (Zofran Inj) 4 mg IVP ONCE PRN PRN Reason: Nausea/Vomiting Stop: 01/07/19 17:11 Rosuvastatin Calcium (Crestor) 5 mg PO HS [facility] Last Admin: 01/06/19 22:22 Dose: 5 mg Silver Sulfadiazine (Silvadene 1% 20 Gm) 0 ea TOP DAILY [facility] Last Admin: 01/07/19 12:43 Dose: Not Given - Labs Labs: 01/07/19 07:05 01/07/19 07:05 PT 12.3 SECONDS (9.7-12.2) H 01/07/19 07:05 INR 1.1 01/07/19 07:05 APTT 25 SECONDS (21-34) 12/30/18 23:00 - Constitutional Appears: Chronically Ill - Head Exam Head Exam: NORMOCEPHALIC - Eye Exam Eye Exam: Normal appearance - ENT Exam ENT Exam: Mucous Membranes Moist - Neck Exam Neck Exam: Full ROM - Respiratory Exam Respiratory Exam: Decreased Breath Sounds, Clear to Ausculation Bilateral - Cardiovascular Exam Cardiovascular Exam: REGULAR RHYTHM, +S1, +S2 - GI/Abdominal Exam GI & Abdominal Exam: Soft - Extremities Exam Extremities Exam: Normal Inspection - Neurological Exam Neurological Exam: Alert, Awake, Oriented x3 - Psychiatric Exam Psychiatric exam: Anxious - Skin Skin Exam: Normal Color Assessment and Plan (1) Right hand weakness Status: Acute (2) Syncope Status: Acute (3) Vomiting Status: Acute (4) CAD (coronary artery disease) Status: Chronic (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
--- NOTE | 2019-01-07 16:57 | CP.PCM.CON ---
<Aneesh Schwartz M - Last Filed: 01/07/19 18:19> History of Present Illness - History of Present Illness History of Present Illness: Critical care consult note for Dr. Saavedra. Consult for overnight monitoring s/p EVAR w/ 3 stents and balloon dilation POD # 0 H&P obtained from chart review as patient is post op and drowsy. 83 M w/ PMhx of HTN, macular degeneration (significant vision loss), hy pothyroidism & cardiac disease (cardiac bypass) admitted for an episode of syncope. Patient had episode of gastroenteritides and subsequently fainted. Patient was initially treated with flagyl; however it was stopped as he developed a rash in groin and axilla area. On current admission, patient found to have large aortic abdominal aneurysm. Patient is s/p EVAR w/ 3 stents and balloon dilation POD # 0. Patient denies headache, vision loss, chest pain, SOB, cough, congestion, diarrhea, abdominal pain, nausea, vomiting, fevers, chills. PMhx: HTN, hypothyroidism, macular degeneration (significant vision loss) & cardiac disease Allergies: NKDA PSHx: CABG, cholecystectomy SHx: former smoker, drinks wine once a week Review of Systems - Review of Systems All systems: reviewed and no additional remarkable complaints except - Constitutional Constitutional: As Per HPI Past Patient History - Infectious Disease Hx of Infectious Diseases: None - Past Medical History & Family History Past Medical History?: Yes - Past Social History Smoking Status: Former Smoker - CARDIAC Hx Pacemaker: Yes (left side) - PULMONARY Hx Respiratory Disorders: No - NEUROLOGICAL Hx Neurological Disorder: No - HEENT Hx Blind: Yes (legally blind) - RENAL Hx Chronic Kidney Disease: No - ENDOCRINE/METABOLIC Hx Hypothyroidism: Yes - HEMATOLOGICAL/ONCOLOGICAL Hx Blood Disorders: No - INTEGUMENTARY Hx Dermatological Problems: No - MUSCULOSKELETAL/RHEUMATOLOGICAL Hx Musculoskeletal Disorders: No - GASTROINTESTINAL Hx Gastrointestinal Disorders: No - GENITOURINARY/GYNECOLOGICAL Hx Genitourinary Disorders: No - PSYCHIATRIC Hx Substance Use: No - SURGICAL HISTORY Hx Surgeries: Yes Other/Comment: CABG X2. pacemaker insertion - ANESTHESIA Hx Anesthesia: Yes Hx Anesthesia Reactions: No Hx Malignant Hyperthermia: No Meds Allergies/Adverse Reactions: Allergies Allergy/AdvReac Type Severity Reaction Status Date / Time No Known Allergies Allergy Unverified 12/30/18 22:37 - Medications Medications: Current Medications Acetaminophen (Tylenol 325mg Tab) 650 mg PO Q6 [facility] Amlodipine Besylate (Norvasc) 2.5 mg PO DAILY [facility] Last Admin: 01/07/19 10:45 Dose: 2.5 mg Clopidogrel Bisulfate (Plavix) 75 mg PO DAILY [facility] Last Admin: 01/07/19 10:45 Dose: 75 mg Diphenhydramine HCl (Benadryl) 50 mg IVP BID [facility] Last Admin: 01/07/19 12:42 Dose: Not Given Famotidine (Pepcid) 20 mg PO BID [facility] Last Admin: 01/07/19 10:45 Dose: 20 mg Hydrocortisone (Cortizone 1% Cream) 1 gm TOP BID [facility] Last Admin: 01/07/19 12:42 Dose: Not Given Hydromorphone HCl (Dilaudid) 0.5 mg IVP Q5M PRN PRN Reason: Pain, moderate (4-7) Stop: 01/07/19 17:11 Cefazolin Sodium 500 mg/ (Sodium Chloride) 50 mls @ 100 mls/hr IVPB Q8H [facility]; Protocol Lactated Ringer's (Lactated Ringer's) 1,000 mls @ 83 mls/hr IV .Q12H3M [facility] Levothyroxine Sodium (Synthroid) 75 mcg PO DAILY@0630 [facility] Last Admin: 01/07/19 05:45 Dose: Not Given Nystatin (Nystop Topical Powder) 1 applic TOP BID [facility] Last Admin: 01/07/19 12:43 Dose: Not Given Qtczf-3-Egct Ethyl Esters (Lovaza) 1 gm PO DAILY [facility] Last Admin: 01/07/19 10:46 Dose: 1 gm Ondansetron HCl (Zofran Inj) 4 mg IVP ONCE PRN PRN Reason: Nausea/Vomiting Stop: 01/07/19 17:11 Rosuvastatin Calcium (Crestor) 5 mg PO HS [facility] Last Admin: 01/06/19 22:22 Dose: 5 mg Silver Sulfadiazine (Silvadene 1% 20 Gm) 0 ea TOP DAILY [facility] Last Admin: 01/07/19 12:43 Dose: Not Given Physical Exam - Constitutional Appears: Non-toxic, No Acute Distress - Head Exam Additional comments: 3 cm X 2cm cericular abrasion with some purulent discharge - Eye Exam Eye Exam: EOMI, Normal appearance - ENT Exam ENT Exam: Mucous Membranes Moist - Respiratory Exam Respiratory Exam: Clear to Auscultation Bilateral, NORMAL BREATHING PATTERN. absent: Rales, Rhonchi, Wheezes - Cardiovascular Exam Cardiovascular Exam: +S1, +S2. absent: Systolic Murmur - GI/Abdominal Exam GI & Abdominal Exam: Normal Bowel Sounds, Soft. absent: Distended - Exam Additional comments: Castro in place - Extremities Exam Extremities exam: Positive for: full ROM, normal inspection. Negative for: calf tenderness, pedal edema - Back Exam Back exam: absent: CVA tenderness (L), CVA tenderness (R) - Neurological Exam Neurological exam: Alert, Oriented x3 - Psychiatric Exam Psychiatric exam: Normal Affect, Normal Mood - Skin Skin Exam: Dry, Normal Color, Warm Additional comments: flat petechial rash in lower abdominal, groin and axilla area Results - Vital Signs Recent Vital Signs: Last Vital Signs Temp 98 F 01/07/19 15:27 Pulse 72 01/07/19 16:00 Resp 10 L 01/07/19 16:00 BP 102/53 L 01/07/19 16:00 Pulse Ox 100 01/07/19 16:00 - Labs Result Diagrams: 01/07/19 16:42 01/07/19 17:12 Labs: Laboratory Results - last 24 hr 01/06/19 01/06/19 01/06/19 16:45 17:03 17:03 WBC 6.0 RBC 4.33 L Hgb 13.4 Hct 40.5 MCV 93.5 MCH 30.9 MCHC 33.0 RDW 13.8 Plt Count 175 MPV 8.0 Neut % (Auto) 73.2 Lymph % (Auto) 10.4 L [place] % (Auto) 4.7 Eos % (Auto) 10.9 H Baso % (Auto) 0.8 Neut # (Auto) 4.4 Lymph # (Auto) 0.6 L [place] # (Auto) 0.3 Eos # (Auto) 0.7 Baso # (Auto) 0.0 Neutrophils % (Manual) Lymphocytes % (Manual) Monocytes % (Manual) Platelet Estimate RBC Morphology PT 12.3 H INR 1.1 Sodium 136 Potassium 4.3 Chloride 99 Carbon Dioxide 28 Anion Gap 13 BUN 24 H Creatinine 1.0 Est GFR ( Amer) > 60 Est GFR (Non-Af Amer) > 60 Random Glucose 123 H D Calcium 9.0 Blood Type Blood Type Confirm Antibody Screen 01/06/19 01/07/19 01/07/19 17:03 07:05 07:05 WBC 8.3 RBC 4.51 Hgb 14.2 Hct 43.4 MCV 96.2 H D MCH 31.4 H MCHC 32.7 L RDW 13.9 Plt Count 197 MPV 7.9 Neut % (Auto) 88.8 H Lymph % (Auto) 7.3 L [place] % (Auto) 3.1 Eos % (Auto) 0.4 Baso % (Auto) 0.4 Neut # (Auto) 7.3 H Lymph # (Auto) 0.6 L [place] # (Auto) 0.3 Eos # (Auto) 0.0 Baso # (Auto) 0.0 Neutrophils % (Manual) 96 H Lymphocytes % (Manual) 3 L Monocytes % (Manual) 1 Platelet Estimate Normal RBC Morphology Normal PT 12.3 H INR 1.1 Sodium Potassium Chloride Carbon Dioxide Anion Gap BUN Creatinine Est GFR ( Amer) Est GFR (Non-Af Amer) Random Glucose Calcium Blood Type A POSITIVE Blood Type Confirm A POSITIVE Antibody Screen Negative 01/07/19 07:05 WBC RBC Hgb Hct MCV MCH MCHC RDW Plt Count MPV Neut % (Auto) Lymph % (Auto) [place] % (Auto) Eos % (Auto) Baso % (Auto) Neut # (Auto) Lymph # (Auto) [place] # (Auto) Eos # (Auto) Baso # (Auto) Neutrophils % (Manual) Lymphocytes % (Manual) Monocytes % (Manual) Platelet Estimate RBC Morphology PT INR Sodium 135 Potassium 4.7 Chloride 102 Carbon Dioxide 22 Anion Gap 16 BUN 27 H Creatinine 0.9 Est GFR ( Amer) > 60 Est GFR (Non-Af Amer) > 60 Random Glucose 144 H Calcium 8.9 Blood Type Blood Type Confirm Antibody Screen Assessment & Plan - Assessment and Plan (Free Text) Assessment: 83 M w/ PMhx of HTN, CVA,visual impairment & cardiac disease presents s/p syncpe likely secondary to gatroenteritis, found to have multiple abdominal aortic aneyursm. Patient is POD D# s/p EVAR w/ stents. Currently in ICU for overnight surveillance. 1) Abdominal aortic aneurysm 2) Hypertension Plan: Neuro - A&O x3 - hx of macular degeneration Cardio - Hx of HTN, CABG, cardiac disease - C/w clopidogrel 75 mg daily, amlodipine 2.5 mg PO daily, rosuvastatin 5 mg HS Pulm - vitals wnl - continue to monitor GI - clear liquid diet Renal - BUN/Cr stable 27/0.9 - LR @83 mls/hr Endo - hx of hypothyrodism - c/w levothyroxine 75 mcg daily Heme - H/H stable pre-op, post op 2 point drop post op - f/u AM labs - WBC elevated post op, likely reactive - cefazolin prophylactically per surgery - tylenol 650 mg PO Q6H per surgery - nystatin 1 applic top bid - hydrocortisone 1% BID PPx - GI: Pepcid 20 mg PO BID <Flip Saavedra M - Last Filed: 01/07/19 19:35> Meds - Medications Medications: Current Medications Acetaminophen (Tylenol 325mg Tab) 650 mg PO Q6 [facility] Last Admin: 01/07/19 18:03 Dose: 650 mg Amlodipine Besylate (Norvasc) 2.5 mg PO DAILY [facility] Last Admin: 01/07/19 10:45 Dose: 2.5 mg Clopidogrel Bisulfate (Plavix) 75 mg PO DAILY [facility] Last Admin: 01/07/19 10:45 Dose: 75 mg Diphenhydramine HCl (Benadryl) 50 mg IVP BID [facility] Last Admin: 01/07/19 12:42 Dose: Not Given Famotidine (Pepcid) 20 mg PO BID [facility] Last Admin: 01/07/19 18:03 Dose: 20 mg Hydrocortisone (Cortizone 1% Cream) 1 gm TOP BID [facility] Last Admin: 01/07/19 18:05 Dose: 1 applic Cefazolin Sodium 500 mg/ (Sodium Chloride) 50 mls @ 100 mls/hr IVPB Q8H [facility]; Protocol Last Admin: 01/07/19 18:04 Dose: 100 mls/hr Lactated Ringer's (Lactated Ringer's) 1,000 mls @ 83 mls/hr IV .Q12H3M [facility] Last Admin: 01/07/19 17:22 Dose: 83 mls/hr Magnesium Sulfate (Magnesium Sulfate 4 Gm/100 Ml H2o) 4 gm in 100 mls @ 25 mls/hr IVPB ONCE ONE Stop: 01/07/19 23:29 Last Admin: 01/07/19 19:18 Dose: 25 mls/hr Levothyroxine Sodium (Synthroid) 75 mcg PO DAILY@0630 [facility] Last Admin: 01/07/19 05:45 Dose: Not Given Nystatin (Nystop Topical Powder) 1 applic TOP BID [facility] Last Admin: 01/07/19 18:06 Dose: 1 applic Jtbbh-9-Gcee Ethyl Esters (Lovaza) 1 gm PO DAILY [facility] Last Admin: 01/07/19 10:46 Dose: 1 gm Rosuvastatin Calcium (Crestor) 5 mg PO HS [facility] Last Admin: 01/06/19 22:22 Dose: 5 mg Silver Sulfadiazine (Silvadene 1% 20 Gm) 0 ea TOP DAILY [facility] Last Admin: 01/07/19 12:43 Dose: Not Given Results - Vital Signs Recent Vital Signs: Last Vital Signs Temp 96.8 F L 01/07/19 17:00 Pulse 73 01/07/19 19:00 Resp 10 L 01/07/19 19:00 BP 128/58 L 01/07/19 19:00 Pulse Ox 100 01/07/19 19:00 - Labs Result Diagrams: 01/07/19 16:42 01/07/19 17:12 Labs: Laboratory Results - last 24 hr 01/06/19 01/07/19 01/07/19 16:45 07:05 07:05 WBC 8.3 RBC 4.51 Hgb 14.2 Hct 43.4 MCV 96.2 H D MCH 31.4 H MCHC 32.7 L RDW 13.9 Plt Count 197 MPV 7.9 Neut % (Auto) 88.8 H Lymph % (Auto) 7.3 L [place] % (Auto) 3.1 Eos % (Auto) 0.4 Baso % (Auto) 0.4 Neut # (Auto) 7.3 H Lymph # (Auto) 0.6 L [place] # (Auto) 0.3 Eos # (Auto) 0.0 Baso # (Auto) 0.0 Neutrophils % (Manual) 96 H Lymphocytes % (Manual) 3 L Monocytes % (Manual) 1 Platelet Estimate Normal RBC Morphology Normal PT 12.3 H 12.3 H INR 1.1 1.1 Sodium Potassium Chloride Carbon Dioxide Anion Gap BUN Creatinine Est GFR ( Amer) Est GFR (Non-Af Amer) Random Glucose Calcium Phosphorus Magnesium 01/07/19 01/07/19 01/07/19 07:05 16:42 17:12 WBC 13.9 H D RBC 3.62 L Hgb 11.2 L D Hct 33.9 L MCV 93.8 D MCH 31.0 MCHC 33.0 RDW 13.9 Plt Count 209 MPV 7.4 Neut % (Auto) Lymph % (Auto) [place] % (Auto) Eos % (Auto) Baso % (Auto) Neut # (Auto) Lymph # (Auto) [place] # (Auto) Eos # (Auto) Baso # (Auto) Neutrophils % (Manual) Lymphocytes % (Manual) Monocytes % (Manual) Platelet Estimate RBC Morphology PT INR Sodium 135 133 Potassium 4.7 4.5 Chloride 102 104 Carbon Dioxide 22 20 L Anion Gap 16 15 BUN 27 H 25 H Creatinine 0.9 0.8 Est GFR ( Amer) > 60 > 60 Est GFR (Non-Af Amer) > 60 > 60 Random Glucose 144 H 152 H Calcium 8.9 7.9 L Phosphorus 3.8 Magnesium 1.5 L Attending/Attestation - Attestation I have personally seen and examined this patient.: Yes I have fully participated in the care of the patient.: Yes I have reviewed all pertinent clinical information: Yes Notes (Text): 01/07/19 19:32 Today: January The Patient was seen and examined at the bedside, Medical records reviewed, and management issues were discussed and formulated with the house staff. I have reviewed all the relevant clinical, laboratory, hemodynamic, radiographic data and medications Events reviewed Pain issues, skin care, head of the bed elevation, glycemic control were addressed. Agree with above resident's assessment and treatment plans of care as transcribed in Dr. Schwartz's note.
[2019-01-07 17:00] LABS: MEAN CELL VOLUME 93.8 fL (80.0-94.0); WHITE BLOOD COUNT 13.9 K/uL (4.8-10.8)
[2019-01-07 17:03] LABS: HEMOGLOBIN 11.2 g/dL (12.0-18.0)
[2019-01-07] MEDS: Lactated Ringer's 1,000 ML IV SCH (17:22)
[2019-01-07 17:39] LABS: BLOOD UREA NITROGEN 25 mg/dL (9-20); CALCIUM 7.9 mg/dl (8.6-10.4); GFR NON-AFRICAN AMERICAN > 60
[2019-01-07] MEDS ORDERED: Magnesium Sulfate 4 gm/100 ml 4 GM/100 ML BAG IVPB ONE (19:30)
[2019-01-07] MEDS ORDERED: HYDROmorphone 1 mg/ml ISec IVP STA (20:19)
--- NOTE | 2019-01-07 20:40 | CP.PCM.CON ---
History of Present Illness - History of Present Illness History of Present Illness: INFECTIOUS DISEASE ICU CONSULTATION JOSE ANTONIO JUAREZ MD, FACP 01/07/2019 CHART REVIEWED PT EXAMINED CASE DISCUSSED 83 M w/ PMhx of HTN, macular degeneration (significant vision loss), hypothyroidism & cardiac disease (cardiac bypass) admitted for an episode of syncope. Patient had episode of gastroenteritides and subsequently fainted. Patient was initially treated with flagyl; however it was stopped as he developed a rash in groin and axilla area. On current admission, patient found to have large aortic abdominal aneurysm. Patient is s/p EVAR w/ 3 stents and balloon dilation POD # 0. AN INFECTIOUS DISEASE CONSULTATION REQUESTED 2ND AN UNUSUAL SKIN RASH FROM GROIN, WITH SATELLITE LESIONS,FROM GROIN, ETC-NON ON HIS FACE, CHEST OR UPPER ABDOMEN, POSSIBLE POST ORAL ANTIBIOTICS. Patient denies headache, vision loss, chest pain, SOB, cough, congestion, diarrhea, abdominal pain, nausea, vomiting, fevers, chills. PMhx: HTN, hypothyroidism, macular degeneration (significant vision loss) & cardiac disease Allergies: NKDA PSHx: CABG, cholecystectomy SHx: former smoker, drinks wine once a week Review of Systems - Review of Systems All systems: reviewed and no additional remarkable complaints except - Constitutional Constitutional: As Per HPI Past Patient History - Infectious Disease Hx of Infectious Diseases: None - Past Medical History & Family History Past Medical History?: Yes - Past Social History Smoking Status: Former Smoker - CARDIAC Hx Pacemaker: Yes (left side) - PULMONARY Hx Respiratory Disorders: No - NEUROLOGICAL Hx Neurological Disorder: No - HEENT Hx Blind: Yes (legally blind) - RENAL Hx Chronic Kidney Disease: No - ENDOCRINE/METABOLIC Hx Hypothyroidism: Yes - HEMATOLOGICAL/ONCOLOGICAL Hx Blood Disorders: No - INTEGUMENTARY Hx Dermatological Problems: No - MUSCULOSKELETAL/RHEUMATOLOGICAL Hx Musculoskeletal Disorders: No - GASTROINTESTINAL Hx Gastrointestinal Disorders: No - GENITOURINARY/GYNECOLOGICAL Hx Genitourinary Disorders: No - PSYCHIATRIC Hx Substance Use: No - SURGICAL HISTORY Hx Surgeries: Yes Other/Comment: CABG X2. pacemaker insertion - ANESTHESIA Hx Anesthesia: Yes Hx Anesthesia Reactions: No Hx Malignant Hyperthermia: No Meds Allergies/Adverse Reactions: Allergies Allergy/AdvReac Type Severity Reaction Status Date / Time No Known Allergies Allergy Unverified 12/30/18 22:37 - Medications Medications: Current Medications Acetaminophen (Tylenol 325mg Tab) 650 mg PO Q6 [facility] Amlodipine Besylate (Norvasc) 2.5 mg PO DAILY [facility] Last Admin: 01/07/19 10:45 Dose: 2.5 mg Clopidogrel Bisulfate (Plavix) 75 mg PO DAILY [facility] Last Admin: 01/07/19 10:45 Dose: 75 mg Diphenhydramine HCl (Benadryl) 50 mg IVP BID [facility] Last Admin: 01/07/19 12:42 Dose: Not Given Famotidine (Pepcid) 20 mg PO BID [facility] Last Admin: 01/07/19 10:45 Dose: 20 mg Hydrocortisone (Cortizone 1% Cream) 1 gm TOP BID [facility] Last Admin: 01/07/19 12:42 Dose: Not Given Hydromorphone HCl (Dilaudid) 0.5 mg IVP Q5M PRN PRN Reason: Pain, moderate (4-7) Stop: 01/07/19 17:11 Cefazolin Sodium 500 mg/ (Sodium Chloride) 50 mls @ 100 mls/hr IVPB Q8H [facility]; Protocol Lactated Ringer's (Lactated Ringer's) 1,000 mls @ 83 mls/hr IV .Q12H3M [facility] Levothyroxine Sodium (Synthroid) 75 mcg PO DAILY@0630 [facility] Last Admin: 01/07/19 05:45 Dose: Not Given Nystatin (Nystop Topical Powder) 1 applic TOP BID [facility] Last Admin: 01/07/19 12:43 Dose: Not Given Lmnaf-0-Xuey Ethyl Esters (Lovaza) 1 gm PO DAILY [facility] Last Admin: 01/07/19 10:46 Dose: 1 gm Ondansetron HCl (Zofran Inj) 4 mg IVP ONCE PRN PRN Reason: Nausea/Vomiting Stop: 01/07/19 17:11 Rosuvastatin Calcium (Crestor) 5 mg PO HS [facility] Last Admin: 01/06/19 22:22 Dose: 5 mg Silver Sulfadiazine (Silvadene 1% 20 Gm) 0 ea TOP DAILY [facility] Last Admin: 01/07/19 12:43 Dose: Not Given Physical Exam - Constitutional Appears: Non-toxic, No Acute Distress - Head Exam Additional comments: 3 cm X 2cm cericular abrasion with some purulent discharge - Eye Exam Eye Exam: EOMI, Normal appearance - ENT Exam ENT Exam: Mucous Membranes Moist - Respiratory Exam Respiratory Exam: Clear to Auscultation Bilateral, NORMAL BREATHING PATTERN. absent: Rales, Rhonchi, Wheezes - Cardiovascular Exam Cardiovascular Exam: +S1, +S2. absent: Systolic Murmur - GI/Abdominal Exam GI & Abdominal Exam: Normal Bowel Sounds, Soft. absent: Distended, GROIN WITH FINE RASH WITH SATELLITE LESIONS-R/O KELLY SPECIES, ALMOST TINEA VS CANDIDAL, - Exam Additional comments: Castro in place - Extremities Exam Extremities exam: Positive for: full ROM, normal inspection. Negative for: calf tenderness, pedal edema - Back Exam Back exam: absent: CVA tenderness (L), CVA tenderness (R) - Neurological Exam Neurological exam: Alert, Oriented x3 - Psychiatric Exam Psychiatric exam: Normal Affect, Normal Mood - Skin Skin Exam: Dry, Normal Color, Warm Additional comments: flat petechial rash in lower abdominal, groin and axilla area Results - Vital Signs Recent Vital Signs: Last Vital Signs Temp 98 F 01/07/19 15:27 Pulse 72 01/07/19 16:00 Resp 10 L 01/07/19 16:00 BP 102/53 L 01/07/19 16:00 Pulse Ox 100 01/07/19 16:00 - Labs Result Diagrams: 01/07/19 16:42 01/07/19 17:12 Labs: Laboratory Results - last 24 hr 01/06/19 01/06/19 01/06/19 16:45 17:03 17:03 WBC 6.0 RBC 4.33 L Hgb 13.4 Hct 40.5 MCV 93.5 MCH 30.9 MCHC 33.0 RDW 13.8 Plt Count 175 MPV 8.0 Neut % (Auto) 73.2 Lymph % (Auto) 10.4 L Stafford % (Auto) 4.7 Eos % (Auto) 10.9 H Baso % (Auto) 0.8 Neut # (Auto) 4.4 Lymph # (Auto) 0.6 L Stafford # (Auto) 0.3 Eos # (Auto) 0.7 Baso # (Auto) 0.0 Neutrophils % (Manual) Lymphocytes % (Manual) Monocytes % (Manual) Platelet Estimate RBC Morphology PT 12.3 H INR 1.1 Sodium 136 Potassium 4.3 Chloride 99 Carbon Dioxide 28 Anion Gap 13 BUN 24 H Creatinine 1.0 Est GFR ( Amer) > 60 Est GFR (Non-Af Amer) > 60 Random Glucose 123 H D Calcium 9.0 Blood Type Blood Type Confirm Antibody Screen 01/06/19 01/07/19 01/07/19 17:03 07:05 07:05 WBC 8.3 RBC 4.51 Hgb 14.2 Hct 43.4 MCV 96.2 H D MCH 31.4 H MCHC 32.7 L RDW 13.9 Plt Count 197 MPV 7.9 Neut % (Auto) 88.8 H Lymph % (Auto) 7.3 L Stafford % (Auto) 3.1 Eos % (Auto) 0.4 Baso % (Auto) 0.4 Neut # (Auto) 7.3 H Lymph # (Auto) 0.6 L Stafford # (Auto) 0.3 Eos # (Auto) 0.0 Baso # (Auto) 0.0 Neutrophils % (Manual) 96 H Lymphocytes % (Manual) 3 L Monocytes % (Manual) 1 Platelet Estimate Normal RBC Morphology Normal PT 12.3 H INR 1.1 Sodium Potassium Chloride Carbon Dioxide Anion Gap BUN Creatinine Est GFR ( Amer) Est GFR (Non-Af Amer) Random Glucose Calcium Blood Type A POSITIVE Blood Type Confirm A POSITIVE Antibody Screen Negative 01/07/19 07:05 WBC RBC Hgb Hct MCV MCH MCHC RDW Plt Count MPV Neut % (Auto) Lymph % (Auto) Stafford % (Auto) Eos % (Auto) Baso % (Auto) Neut # (Auto) Lymph # (Auto) Stafford # (Auto) Eos # (Auto) Baso # (Auto) Neutrophils % (Manual) Lymphocytes % (Manual) Monocytes % (Manual) Platelet Estimate RBC Morphology PT INR Sodium 135 Potassium 4.7 Chloride 102 Carbon Dioxide 22 Anion Gap 16 BUN 27 H Creatinine 0.9 Est GFR ( Amer) > 60 Est GFR (Non-Af Amer) > 60 Random Glucose 144 H Calcium 8.9 Blood Type Blood Type Confirm Antibody Screen Assessment & Plan - Assessment and Plan (Free Text) Assessment: 83 M w/ PMhx of HTN, CVA,visual impairment & cardiac disease presents s/p syncpe likely secondary to gatroenteritis, found to have multiple abdominal aortic aneyursm. Patient is POD D# s/p EVAR w/ stents. Currently in ICU for overnight surveillance. 1) Abdominal aortic aneurysm 2) Hypertension 3) CANDIDAL SKIN RASH LIKE IN GROIN, ETC. Plan: Neuro - A&O x3 - hx of macular degeneration Cardio - Hx of HTN, CABG, cardiac disease - C/w clopidogrel 75 mg daily, amlodipine 2.5 mg PO daily, rosuvastatin 5 mg HS Pulm - vitals wnl - continue to monitor GI - clear liquid diet Renal - BUN/Cr stable 27/0.9 - LR @83 mls/hr Endo - hx of hypothyrodism - c/w levothyroxine 75 mcg daily Heme - H/H stable pre-op, post op 2 point drop post op - f/u AM labs - WBC elevated post op, likely reactive - cefazolin prophylactically per surgery - tylenol 650 mg PO Q6H per surgery - nystatin 1 applic top bid - hydrocortisone 1% BID PPx - GI: Pepcid 20 mg PO BID Meds - Medications Medications: Current Medications Acetaminophen (Tylenol 325mg Tab) 650 mg PO Q6 [facility] Last Admin: 01/07/19 18:03 Dose: 650 mg Amlodipine Besylate (Norvasc) 2.5 mg PO DAILY [facility] Last Admin: 01/07/19 10:45 Dose: 2.5 mg Clopidogrel Bisulfate (Plavix) 75 mg PO DAILY [facility] Last Admin: 01/07/19 10:45 Dose: 75 mg Diphenhydramine HCl (Benadryl) 50 mg IVP BID [facility] Last Admin: 01/07/19 12:42 Dose: Not Given Famotidine (Pepcid) 20 mg PO BID [facility] Last Admin: 01/07/19 18:03 Dose: 20 mg Hydrocortisone (Cortizone 1% Cream) 1 gm TOP BID [facility] Last Admin: 01/07/19 18:05 Dose: 1 applic Cefazolin Sodium 500 mg/ (Sodium Chloride) 50 mls @ 100 mls/hr IVPB Q8H [facility]; Protocol Last Admin: 01/07/19 18:04 Dose: 100 mls/hr Lactated Ringer's (Lactated Ringer's) 1,000 mls @ 83 mls/hr IV .Q12H3M [facility] Last Admin: 01/07/19 17:22 Dose: 83 mls/hr Magnesium Sulfate (Magnesium Sulfate 4 Gm/100 Ml H2o) 4 gm in 100 mls @ 25 mls/hr IVPB ONCE ONE Stop: 01/07/19 23:29 Last Admin: 01/07/19 19:18 Dose: 25 mls/hr Levothyroxine Sodium (Synthroid) 75 mcg PO DAILY@0630 [facility] Last Admin: 01/07/19 05:45 Dose: Not Given Nystatin (Nystop Topical Powder) 1 applic TOP BID [facility] Last Admin: 01/07/19 18:06 Dose: 1 applic Qislw-9-Pilt Ethyl Esters (Lovaza) 1 gm PO DAILY [facility] Last Admin: 01/07/19 10:46 Dose: 1 gm Rosuvastatin Calcium (Crestor) 5 mg PO HS [facility] Last Admin: 01/06/19 22:22 Dose: 5 mg Silver Sulfadiazine (Silvadene 1% 20 Gm) 0 ea TOP DAILY [facility] Last Admin: 01/07/19 12:43 Dose: Not Given Results - Vital Signs Recent Vital Signs: Last Vital Signs Temp 96.8 F L 01/07/19 17:00 Pulse 73 01/07/19 19:00 Resp 10 L 01/07/19 19:00 BP 128/58 L 01/07/19 19:00 Pulse Ox 100 01/07/19 19:00 - Labs Result Diagrams: 01/07/19 16:42 01/07/19 17:12 Labs: Laboratory Results - last 24 hr 01/06/19 01/07/19 01/07/19 16:45 07:05 07:05 WBC 8.3 RBC 4.51 Hgb 14.2 Hct 43.4 MCV 96.2 H D MCH 31.4 H MCHC 32.7 L RDW 13.9 Plt Count 197 MPV 7.9 Neut % (Auto) 88.8 H Lymph % (Auto) 7.3 L Stafford % (Auto) 3.1 Eos % (Auto) 0.4 Baso % (Auto) 0.4 Neut # (Auto) 7.3 H Lymph # (Auto) 0.6 L Stafford # (Auto) 0.3 Eos # (Auto) 0.0 Baso # (Auto) 0.0 Neutrophils % (Manual) 96 H Lymphocytes % (Manual) 3 L Monocytes % (Manual) 1 Platelet Estimate Normal RBC Morphology Normal PT 12.3 H 12.3 H INR 1.1 1.1 Sodium Potassium Chloride Carbon Dioxide Anion Gap BUN Creatinine Est GFR ( Amer) Est GFR (Non-Af Amer) Random Glucose Calcium Phosphorus Magnesium 01/07/19 01/07/19 01/07/19 07:05 16:42 17:12 WBC 13.9 H D RBC 3.62 L Hgb 11.2 L D Hct 33.9 L MCV 93.8 D MCH 31.0 MCHC 33.0 RDW 13.9 Plt Count 209 MPV 7.4 Neut % (Auto) Lymph % (Auto) Stafford % (Auto) Eos % (Auto) Baso % (Auto) Neut # (Auto) Lymph # (Auto) Stafford # (Auto) Eos # (Auto) Baso # (Auto) Neutrophils % (Manual) Lymphocytes % (Manual) Monocytes % (Manual) Platelet Estimate RBC Morphology PT INR Sodium 135 133 Potassium 4.7 4.5 Chloride 102 104 Carbon Dioxide 22 20 L Anion Gap 16 15 BUN 27 H 25 H Creatinine 0.9 0.8 Est GFR ( Amer) > 60 > 60 Est GFR (Non-Af Amer) > 60 > 60 Random Glucose 144 H 152 H Calcium 8.9 7.9 L Phosphorus 3.8 Magnesium 1.5 L Past Patient History - Infectious Disease Hx of Infectious Diseases: None - Past Medical History & Family History Past Medical History?: Yes - Past Social History Smoking Status: Former Smoker - CARDIAC Hx Pacemaker: Yes (left side) - PULMONARY Hx Respiratory Disorders: No - NEUROLOGICAL Hx Neurological Disorder: No - HEENT Hx Blind: Yes (legally blind) - RENAL Hx Chronic Kidney Disease: No - ENDOCRINE/METABOLIC Hx Hypothyroidism: Yes - HEMATOLOGICAL/ONCOLOGICAL Hx Blood Disorders: No - INTEGUMENTARY Hx Dermatological Problems: No - MUSCULOSKELETAL/RHEUMATOLOGICAL Hx Musculoskeletal Disorders: No - GASTROINTESTINAL Hx Gastrointestinal Disorders: No - GENITOURINARY/GYNECOLOGICAL Hx Genitourinary Disorders: No - PSYCHIATRIC Hx Substance Use: No - SURGICAL HISTORY Hx Surgeries: Yes Other/Comment: CABG X2. pacemaker insertion - ANESTHESIA Hx Anesthesia: Yes Hx Anesthesia Reactions: No Hx Malignant Hyperthermia: No Meds Allergies/Adverse Reactions: Allergies Allergy/AdvReac Type Severity Reaction Status Date / Time No Known Allergies Allergy Unverified 12/30/18 22:37 - Medications Medications: Current Medications Acetaminophen (Tylenol 325mg Tab) 650 mg PO Q6 [facility] Last Admin: 01/07/19 18:03 Dose: 650 mg Amlodipine Besylate (Norvasc) 2.5 mg PO DAILY [facility] Last Admin: 01/07/19 10:45 Dose: 2.5 mg Clopidogrel Bisulfate (Plavix) 75 mg PO DAILY [facility] Last Admin: 01/07/19 10:45 Dose: 75 mg Diphenhydramine HCl (Benadryl) 50 mg IVP BID [facility] Last Admin: 01/07/19 12:42 Dose: Not Given Famotidine (Pepcid) 20 mg PO BID [facility] Last Admin: 01/07/19 18:03 Dose: 20 mg Hydrocortisone (Cortizone 1% Cream) 1 gm TOP BID [facility] Last Admin: 01/07/19 18:05 Dose: 1 applic Cefazolin Sodium 500 mg/ (Sodium Chloride) 50 mls @ 100 mls/hr IVPB Q8H [facility]; Protocol Last Admin: 01/07/19 18:04 Dose: 100 mls/hr Lactated Ringer's (Lactated Ringer's) 1,000 mls @ 83 mls/hr IV .Q12H3M [facility] Last Admin: 01/07/19 17:22 Dose: 83 mls/hr Magnesium Sulfate (Magnesium Sulfate 4 Gm/100 Ml H2o) 4 gm in 100 mls @ 25 mls/hr IVPB ONCE ONE Stop: 01/07/19 23:29 Last Admin: 01/07/19 19:18 Dose: 25 mls/hr Levothyroxine Sodium (Synthroid) 75 mcg PO DAILY@0630 [facility] Last Admin: 01/07/19 05:45 Dose: Not Given Nystatin (Nystop Topical Powder) 1 applic TOP BID [facility] Last Admin: 01/07/19 18:06 Dose: 1 applic Pmwfk-2-Anrs Ethyl Esters (Lovaza) 1 gm PO DAILY [facility] Last Admin: 01/07/19 10:46 Dose: 1 gm Rosuvastatin Calcium (Crestor) 5 mg PO HS [facility] Last Admin: 01/06/19 22:22 Dose: 5 mg Silver Sulfadiazine (Silvadene 1% 20 Gm) 0 ea TOP DAILY [facility] Last Admin: 01/07/19 12:43 Dose: Not Given Results - Vital Signs Recent Vital Signs: Last Vital Signs Temp 96.8 F L 01/07/19 17:00 Pulse 73 01/07/19 19:00 Resp 10 L 01/07/19 19:00 BP 128/58 L 01/07/19 19:00 Pulse Ox 100 01/07/19 19:00 - Labs Result Diagrams: 01/07/19 16:42 01/07/19 17:12 Labs: Laboratory Results - last 24 hr 01/07/19 01/07/19 01/07/19 07:05 07:05 07:05 WBC 8.3 RBC 4.51 Hgb 14.2 Hct 43.4 MCV 96.2 H D MCH 31.4 H MCHC 32.7 L RDW 13.9 Plt Count 197 MPV 7.9 Neut % (Auto) 88.8 H Lymph % (Auto) 7.3 L Stafford % (Auto) 3.1 Eos % (Auto) 0.4 Baso % (Auto) 0.4 Neut # (Auto) 7.3 H Lymph # (Auto) 0.6 L Stafford # (Auto) 0.3 Eos # (Auto) 0.0 Baso # (Auto) 0.0 Neutrophils % (Manual) 96 H Lymphocytes % (Manual) 3 L Monocytes % (Manual) 1 Platelet Estimate Normal RBC Morphology Normal PT 12.3 H INR 1.1 Sodium 135 Potassium 4.7 Chloride 102 Carbon Dioxide 22 Anion Gap 16 BUN 27 H Creatinine 0.9 Est GFR ( Amer) > 60 Est GFR (Non-Af Amer) > 60 Random Glucose 144 H Calcium 8.9 Phosphorus Magnesium 01/07/19 01/07/19 16:42 17:12 WBC 13.9 H D RBC 3.62 L Hgb 11.2 L D Hct 33.9 L MCV 93.8 D MCH 31.0 MCHC 33.0 RDW 13.9 Plt Count 209 MPV 7.4 Neut % (Auto) Lymph % (Auto) Stafford % (Auto) Eos % (Auto) Baso % (Auto) Neut # (Auto) Lymph # (Auto) Stafford # (Auto) Eos # (Auto) Baso # (Auto) Neutrophils % (Manual) Lymphocytes % (Manual) Monocytes % (Manual) Platelet Estimate RBC Morphology PT INR Sodium 133 Potassium 4.5 Chloride 104 Carbon Dioxide 20 L Anion Gap 15 BUN 25 H Creatinine 0.8 Est GFR ( Amer) > 60 Est GFR (Non-Af Amer) > 60 Random Glucose 152 H Calcium 7.9 L Phosphorus 3.8 Magnesium 1.5 L
--- NOTE | 2019-01-07 22:02 | CARD ---
APPROVED REPORT Date of service: 12/30/2018 EKG Measurement Heart [id number] <Conclusion> Normal sinus rhythm Normal ECG
[2019-01-07 22:55] LABS: HEMOGLOBIN 10.6 g/dL (12.0-18.0); MEAN CELL VOLUME 93.7 fL (80.0-94.0); MEAN CORPUSCULAR HEMOGLOBIN 31.3 pg (27.0-31.0); MEAN CORPUSCULAR HGB CONC 33.4 g/dL (33.0-37.0); MEAN PLATELET VOLUME 7.2 fL (7.2-11.7); RBC 3.37 Mil/uL (4.40-5.90); RED CELL DISTRIBUTION WIDTH 13.8 % (11.5-14.5); WHITE BLOOD COUNT 11.8 K/uL (4.8-10.8)
--- NOTE | 2019-01-07 23:36 | CP.PCM.PN ---
Subjective - Date & Time of Evaluation Date of Evaluation: 01/07/19 Time of Evaluation: 18:20 - Subjective Subjective: Patient seen and evaluated S/P EVAR POD # 0 No cardiac events noted Review of Systems - Review of Systems All systems: reviewed and no additional remarkable complaints except - Constitutional Constitutional: As Per HPI Physical Exam - Constitutional Appears: Non-toxic, No Acute Distress - Head Exam Additional comments: 3 cm X 2cm cericular abrasion with some purulent discharge - Eye Exam Eye Exam: EOMI, Normal appearance - ENT Exam ENT Exam: Mucous Membranes Moist - Respiratory Exam Respiratory Exam: Clear to Auscultation Bilateral, NORMAL BREATHING PATTERN. absent: Rales, Rhonchi, Wheezes - Cardiovascular Exam Cardiovascular Exam: +S1, +S2. absent: Systolic Murmur - GI/Abdominal Exam GI & Abdominal Exam: Normal Bowel Sounds, Soft. absent: Distended - Exam Additional comments: Castro in place - Extremities Exam Extremities exam: Positive for: full ROM, normal inspection. Negative for: calf tenderness, pedal edema - Back Exam Back exam: absent: CVA tenderness (L), CVA tenderness (R) - Neurological Exam Neurological exam: Alert, Oriented x3 - Psychiatric Exam Psychiatric exam: Normal Affect, Normal Mood - Skin Skin Exam: Dry, Normal Color, Warm Additional comments: flat petechial rash in lower abdominal, groin and axilla area Objective - Vital Signs/Intake and Output Vital Signs (last 24 hours): Temp Pulse Resp BP Pulse Ox 96.8 F L 73 10 L 128/58 L 100 01/07/19 17:00 01/07/19 19:00 01/07/19 19:00 01/07/19 19:00 01/07/19 19:00 Intake and Output: 01/07/19 01/08/19 18:59 06:59 Intake Total 2366 203 Output Total 230 60 Balance 2136 143 - Medications Medications: Current Medications Acetaminophen (Tylenol 325mg Tab) 650 mg PO Q6 [facility] Last Admin: 01/07/19 18:03 Dose: 650 mg Amlodipine Besylate (Norvasc) 2.5 mg PO DAILY [facility] Last Admin: 01/07/19 10:45 Dose: 2.5 mg Clopidogrel Bisulfate (Plavix) 75 mg PO DAILY [facility] Last Admin: 01/07/19 10:45 Dose: 75 mg Diphenhydramine HCl (Benadryl) 50 mg IVP BID [facility] Last Admin: 01/07/19 12:42 Dose: Not Given Famotidine (Pepcid) 20 mg PO BID [facility] Last Admin: 01/07/19 18:03 Dose: 20 mg Hydrocortisone (Cortizone 1% Cream) 1 gm TOP BID [facility] Last Admin: 01/07/19 18:05 Dose: 1 applic Cefazolin Sodium 500 mg/ (Sodium Chloride) 50 mls @ 100 mls/hr IVPB Q8H [facility]; Protocol Last Admin: 01/07/19 18:04 Dose: 100 mls/hr Lactated Ringer's (Lactated Ringer's) 1,000 mls @ 83 mls/hr IV .Q12H3M [facility] Last Admin: 01/07/19 17:22 Dose: 83 mls/hr Levothyroxine Sodium (Synthroid) 75 mcg PO DAILY@0630 [facility] Last Admin: 01/07/19 05:45 Dose: Not Given Nystatin (Nystop Topical Powder) 1 applic TOP BID [facility] Last Admin: 01/07/19 18:06 Dose: 1 applic Ekdot-5-Rgcb Ethyl Esters (Lovaza) 1 gm PO DAILY [facility] Last Admin: 01/07/19 10:46 Dose: 1 gm Rosuvastatin Calcium (Crestor) 5 mg PO HS [facility] Last Admin: 01/06/19 22:22 Dose: 5 mg Silver Sulfadiazine (Silvadene 1% 20 Gm) 0 ea TOP DAILY [facility] Last Admin: 01/07/19 12:43 Dose: Not Given - Labs Labs: 01/07/19 22:52 01/07/19 17:12 PT 12.3 SECONDS (9.7-12.2) H 01/07/19 07:05 INR 1.1 01/07/19 07:05 APTT 25 SECONDS (21-34) 12/30/18 23:00 Assessment and Plan - Assessment and Plan (Free Text) Assessment: 83 M w/ PMhx of HTN, CVA,visual impairment & cardiac disease presents s/p syncpe likely secondary to gatroenteritis, found to have multiple abdominal aortic aneyursm. Patient is POD D# s/p EVAR w/ stents. Currently in ICU for overnight surveillance. 1) Abdominal aortic aneurysm 2) Hypertension Plan: Neuro - A&O x3 - hx of macular degeneration Cardio - Hx of HTN, CABG, cardiac disease - C/w clopidogrel 75 mg daily, amlodipine 2.5 mg PO daily, rosuvastatin 5 mg HS Pulm - vitals wnl - continue to monitor GI - clear liquid diet Renal - BUN/Cr stable 27/0.9 - LR @83 mls/hr Endo - hx of hypothyrodism - c/w levothyroxine 75 mcg daily Heme - H/H stable pre-op, post op 2 point drop post op - f/u AM labs - WBC elevated post op, likely reactive - cefazolin prophylactically per surgery - tylenol 650 mg PO Q6H per surgery - nystatin 1 applic top bid - hydrocortisone 1% BID PPx - GI: Pepcid 20 mg PO BID Critical care time spent 35 minutes
[2019-01-08] MEDS ORDERED: HYDROmorphone 1 mg/ml ISec IVP STA ×3 (00:31→05:09)
[2019-01-08] MEDS: Lactated Ringer's 1,000 ML IV SCH ×3 (04:38→16:00)
[2019-01-08 06:10] LABS: BASO % 0.1 % (0.0-2.0); EOS # 0.2 K/uL (0.0-0.7); EOS % 1.7 % (0.0-4.0); HEMOGLOBIN 10.3 g/dL (12.0-18.0); LYMPH # 0.9 K/uL (1.0-4.3); LYMPH % 9.4 % (20.0-40.0); MEAN CELL VOLUME 93.5 fL (80.0-94.0); MEAN CORPUSCULAR HEMOGLOBIN 31.9 pg (27.0-31.0); MEAN CORPUSCULAR HGB CONC 34.2 g/dL (33.0-37.0); MEAN PLATELET VOLUME 7.9 fL (7.2-11.7); MONO # 1.6 K/uL (0.0-0.8); MONO % 16.7 % (0.0-10.0); NEUT # 6.8 K/uL (1.8-7.0); NEUT % 72.1 % (50.0-75.0); PLATELET COUNT 205 K/uL (130-400); RBC 3.21 Mil/uL (4.40-5.90); RED CELL DISTRIBUTION WIDTH 13.6 % (11.5-14.5); WHITE BLOOD COUNT 9.4 K/uL (4.8-10.8)
[2019-01-08 06:24] LABS: ALB/GLOB RATIO 1.3 (1.0-2.1); ALT/SGPT 56 U/L (21-72); AST/SGOT 58 U/L (17-59); BLOOD UREA NITROGEN 28 mg/dL (9-20); CALCIUM 7.9 mg/dl (8.6-10.4); GFR NON-AFRICAN AMERICAN > 60
--- NOTE | 2019-01-08 06:27 | OP ---
PROCEDURE DATE: 01/07/2019 PREOPERATIVE DIAGNOSIS: Abdominal aortic aneurysm. POSTOPERATIVE DIAGNOSIS: Abdominal aortic aneurysm. PROCEDURE CARRIED OUT: Percutaneous endovascular aneurysm repair using an Endologix device. SURGEON: Alireza Jerry Jr., MD IN STORE REPRESENTATIVE: Dr. Hung. ANESTHESIOLOGIST: Emelia Donahue CRNA INDICATIONS FOR PROCEDURE: The patient is an elderly man admitted to the hospital after a fall. Subsequently, he was found to have large, almost 9 cm, abdominal aortic aneurysm. Standard evaluation was carried out preoperatively. OPERATIVE FINDINGS: At the end of the procedure, we had good flow through both rims of the graft. There was no evidence of any endoleak. There was good apposition in the proximal and distal segments. DESCRIPTION OF PROCEDURE: The patient was given general anesthesia. Percutaneous access was obtained via the left groin and a marker catheter placed. On the right side, we entered again percutaneous and predeployed Perclose devices on the right side. We then carried out the appropriate angiography to determine the length of it, particularly given the tortuosity in the most cephalad segment. After this had been approximated, we then placed a graft up to the level of the aortic bifurcation and deployed it in a standard fashion for an autologous graft, after snaring the wires etc., and this was all clearly marked. After this has been done, we then put in the proximal extension. However, this deployed at a slightly lower level than I wanted, and there was evidence of endoleak. Because of this, we had to deploy a similar device again at a slightly higher location, just below the renal arteries. Initially, I was unhappy with the placement. We then took a variety of angiograms, and there were technical problems with the angiogram injector which resulted in a significant delay in time during the procedure in the operating room, and eventually, this was remedied. We then deployed a CODA balloon at the proximal area with resolution of the endoleak and also with placement of the additional stent graft. After this had been done, I was quite happy. Films were able to be taken, and these showed that the graft was in good apposition without any evidence of any leak. We then used the pre-deployed Perclose devices in the groins. We removed the wires. There was excellent flow to the legs and the procedure was terminated. Blood loss of the procedure was approximately 400 to 500 mL, primarily to due to additional sheath and catheters, and there was no period of uncontrolled blood loss. Heparin was given as soon as we had placed both catheters in and that was not reversed at the end. The device used was the main body was an Endologix 28 x 110 with rims 20 x 30 and then the proximal endograft was 34 x 34/C120 which we had to deploy twice because of the overlap and because of the type 1 Endoleak we saw and that fact it had deployed low. We then took our final pictures which were satisfactory. We removed all the wires, grafts, the Percloses, and terminated the procedure. The patient tolerated the procedure uneventfully, and went to recovery room in satisfactory condition. Antibiotics were given prior to initiating the procedure. OPERATION: Percutaneous endovascular repair of 9 cm abdominal aortic aneurysm. Alireza Jerry Jr., MD cc: MD Daiana Damian MD Michael Benz, MD
[2019-01-08] MEDS: Levothyroxine 75 MCG TAB PO SCH (06:43)
--- NOTE | 2019-01-08 07:46 | CP.CCUPN ---
<Aneesh Schwartz M - Last Filed: 01/08/19 14:31> CCU Subjective - Physician Review Subjective (Free Text): Critical care progress note for Dr. Cummins. Patient seen and examined at bedside. Overnight Hemoglobin remained stable as patient is POD # 1 s/p EVAR w/ 3 stents and balloon dilation. Patient has only complaint of some pain near incision site. Patient denies chest pain, SOB, nausea, vomiting, headaches, vision changes, diarrhea, constipation. 01/08/19 14:31 CCU Objective - Vital Signs / Intake & Output Intake and Output (Last 8hrs): Intake & Output 01/07/19 01/08/19 01/08/19 22:59 06:59 14:59 Intake Total 469 Output Total 290 Balance 179 Intake: IV 100 Intake, IV Amount 249 Left Wrist 249 Oral 120 Output: Urine 290 Urethral (Castro) 165 Emesis 0 Other: # Bowel Movements 0 - Physical Exam Head: Positive for: Other (abrahasion on central frontal region, bandage clean, dry, intact ) Extroacular Muscles: Positive for: EOMI Conjunctiva: Positive for: Normal Mouth: Positive for: Moist Mucous Membranes Neck: Positive for: Normal Range of Motion - Medications Active Medications: Active Medications Generic Name Dose Route Start Last Admin Trade Name Freq PRN Reason Stop Dose Admin Acetaminophen 650 mg 01/07/19 18:00 01/08/19 06:30 Tylenol 325mg Tab PO 650 mg Q6 DEJON Administration Amlodipine Besylate 2.5 mg 01/02/19 19:45 01/07/19 10:45 Norvasc PO 2.5 mg DAILY DEJON Administration Clopidogrel Bisulfate 75 mg 12/31/18 10:00 01/07/19 10:45 Plavix PO 75 mg DAILY DEJON Administration Diphenhydramine HCl 50 mg 01/06/19 12:30 01/07/19 12:42 Benadryl IVP Not Given BID DEJON Famotidine 20 mg 12/31/18 14:00 01/07/19 18:03 Pepcid PO 20 mg BID DEJON Administration Hydrocortisone 1 gm 01/04/19 21:15 01/07/19 18:05 Cortizone 1% Cream TOP 1 applic BID DEJON Administration Cefazolin Sodium 500 mg/ 50 mls @ 100 mls/hr 01/07/19 19:00 01/08/19 03:55 Sodium Chloride IVPB 100 mls/hr Q8H DEJON Administration Protocol Lactated Ringer's 1,000 mls @ 83 mls/hr 01/07/19 15:45 01/08/19 06:26 Lactated Ringer's IV 83 mls/hr .Q12H3M DEJON Administration Levothyroxine Sodium 75 mcg 01/02/19 06:30 01/08/19 06:43 Synthroid PO 75 mcg DAILY@0630 DEJON Administration Nystatin 1 applic 01/06/19 18:00 01/07/19 18:06 Nystop Topical Powder TOP 1 applic BID DEJON Administration [id number] Ethyl Esters 1 gm 12/31/18 10:00 01/07/19 10:46 Lovaza PO 1 gm DAILY DEJON Administration Rosuvastatin Calcium 5 mg 12/31/18 22:00 01/07/19 22:32 Crestor PO 5 mg HS DEJON Administration Silver Sulfadiazine 0 ea 12/31/18 17:00 01/07/19 12:43 Silvadene 1% 20 Gm TOP Not Given DAILY DEJON - Patient Studies Lab Studies: Lab Studies 01/08/19 01/08/19 01/07/19 Range/Units 06:02 06:00 22:52 WBC 9.4 11.8 H (4.8-10.8) K/uL RBC 3.21 L 3.37 L (4.40-5.90) Mil/uL Hgb 10.3 L 10.6 L (12.0-18.0) g/dL Hct 30.0 L 31.6 L (35.0-51.0) % MCV 93.5 93.7 (80.0-94.0) fL MCH 31.9 H 31.3 H (27.0-31.0) pg MCHC 34.2 33.4 (33.0-37.0) g/dL RDW 13.6 13.8 (11.5-14.5) % Plt Count 205 198 (130-400) K/uL MPV 7.9 7.2 (7.2-11.7) fL Neut % (Auto) 72.1 (50.0-75.0) % Lymph % (Auto) 9.4 L (20.0-40.0) % Garfield % (Auto) 16.7 H (0.0-10.0) % Eos % (Auto) 1.7 (0.0-4.0) % Baso % (Auto) 0.1 (0.0-2.0) % Neut # (Auto) 6.8 (1.8-7.0) K/uL Lymph # (Auto) 0.9 L (1.0-4.3) K/uL Garfield # (Auto) 1.6 H (0.0-0.8) K/uL Eos # (Auto) 0.2 (0.0-0.7) K/uL Baso # (Auto) 0.0 (0.0-0.2) K/uL Neutrophils % (Manual) (50-75) % Lymphocytes % (Manual) (20-40) % Monocytes % (Manual) (0-10) % Platelet Estimate (NORMAL) RBC Morphology Sodium 132 (132-148) mmol/L Potassium 4.7 (3.6-5.2) mmol/L Chloride 103 (98-107) mmol/L Carbon Dioxide 23 (22-30) mmol/L Anion Gap 11 (10-20) BUN 28 H (9-20) mg/dL Creatinine 0.8 (0.8-1.5) mg/dL Est GFR ( Amer) > 60 Est GFR (Non-Af Amer) > 60 Random Glucose 144 H (75-110) mg/dL Calcium 7.9 L (8.6-10.4) mg/dl Phosphorus 4.5 (2.5-4.5) mg/dL Magnesium 2.6 H (1.6-2.3) mg/dL Total Bilirubin 0.5 (0.2-1.3) mg/dL AST 58 (17-59) U/L ALT 56 (21-72) U/L Alkaline Phosphatase 62 (38-126) U/L Total Protein 5.2 L (6.3-8.3) g/dL Albumin 3.0 L (3.5-5.0) g/dL Globulin 2.3 (2.2-3.9) gm/dL Albumin/Globulin Ratio 1.3 (1.0-2.1) 01/07/19 01/07/19 01/07/19 Range/Units 17:12 16:42 07:05 WBC 13.9 H D (4.8-10.8) K/uL RBC 3.62 L (4.40-5.90) Mil/uL Hgb 11.2 L D (12.0-18.0) g/dL Hct 33.9 L (35.0-51.0) % MCV 93.8 D (80.0-94.0) fL MCH 31.0 (27.0-31.0) pg MCHC 33.0 (33.0-37.0) g/dL RDW 13.9 (11.5-14.5) % Plt Count 209 (130-400) K/uL MPV 7.4 (7.2-11.7) fL Neut % (Auto) (50.0-75.0) % Lymph % (Auto) (20.0-40.0) % Garfield % (Auto) (0.0-10.0) % Eos % (Auto) (0.0-4.0) % Baso % (Auto) (0.0-2.0) % Neut # (Auto) (1.8-7.0) K/uL Lymph # (Auto) (1.0-4.3) K/uL Garfield # (Auto) (0.0-0.8) K/uL Eos # (Auto) (0.0-0.7) K/uL Baso # (Auto) (0.0-0.2) K/uL Neutrophils % (Manual) (50-75) % Lymphocytes % (Manual) (20-40) % Monocytes % (Manual) (0-10) % Platelet Estimate (NORMAL) RBC Morphology Sodium 133 135 (132-148) mmol/L Potassium 4.5 4.7 (3.6-5.2) mmol/L Chloride 104 102 (98-107) mmol/L Carbon Dioxide 20 L 22 (22-30) mmol/L Anion Gap 15 16 (10-20) BUN 25 H 27 H (9-20) mg/dL Creatinine 0.8 0.9 (0.8-1.5) mg/dL Est GFR ( Amer) > 60 > 60 Est GFR (Non-Af Amer) > 60 > 60 Random Glucose 152 H 144 H (75-110) mg/dL Calcium 7.9 L 8.9 (8.6-10.4) mg/dl Phosphorus 3.8 (2.5-4.5) mg/dL Magnesium 1.5 L (1.6-2.3) mg/dL Total Bilirubin (0.2-1.3) mg/dL AST (17-59) U/L ALT (21-72) U/L Alkaline Phosphatase (38-126) U/L Total Protein (6.3-8.3) g/dL Albumin (3.5-5.0) g/dL Globulin (2.2-3.9) gm/dL Albumin/Globulin Ratio (1.0-2.1) 01/07/19 Range/Units 07:05 WBC 8.3 (4.8-10.8) K/uL RBC 4.51 (4.40-5.90) Mil/uL Hgb 14.2 (12.0-18.0) g/dL Hct 43.4 (35.0-51.0) % MCV 96.2 H D (80.0-94.0) fL MCH 31.4 H (27.0-31.0) pg MCHC 32.7 L (33.0-37.0) g/dL RDW 13.9 (11.5-14.5) % Plt Count 197 (130-400) K/uL MPV 7.9 (7.2-11.7) fL Neut % (Auto) 88.8 H (50.0-75.0) % Lymph % (Auto) 7.3 L (20.0-40.0) % Garfield % (Auto) 3.1 (0.0-10.0) % Eos % (Auto) 0.4 (0.0-4.0) % Baso % (Auto) 0.4 (0.0-2.0) % Neut # (Auto) 7.3 H (1.8-7.0) K/uL Lymph # (Auto) 0.6 L (1.0-4.3) K/uL Garfield # (Auto) 0.3 (0.0-0.8) K/uL Eos # (Auto) 0.0 (0.0-0.7) K/uL Baso # (Auto) 0.0 (0.0-0.2) K/uL Neutrophils % (Manual) 96 H (50-75) % Lymphocytes % (Manual) 3 L (20-40) % Monocytes % (Manual) 1 (0-10) % Platelet Estimate Normal (NORMAL) RBC Morphology Normal Sodium (132-148) mmol/L Potassium (3.6-5.2) mmol/L Chloride (98-107) mmol/L Carbon Dioxide (22-30) mmol/L Anion Gap (10-20) BUN (9-20) mg/dL Creatinine (0.8-1.5) mg/dL Est GFR ( Amer) Est GFR (Non-Af Amer) Random Glucose (75-110) mg/dL Calcium (8.6-10.4) mg/dl Phosphorus (2.5-4.5) mg/dL Magnesium (1.6-2.3) mg/dL Total Bilirubin (0.2-1.3) mg/dL AST (17-59) U/L ALT (21-72) U/L Alkaline Phosphatase (38-126) U/L Total Protein (6.3-8.3) g/dL Albumin (3.5-5.0) g/dL Globulin (2.2-3.9) gm/dL Albumin/Globulin Ratio (1.0-2.1) Laboratory Results - last 24 hr 01/07/19 01/07/19 01/07/19 07:05 07:05 16:42 WBC 8.3 13.9 H D RBC 4.51 3.62 L Hgb 14.2 11.2 L D Hct 43.4 33.9 L MCV 96.2 H D 93.8 D MCH 31.4 H 31.0 MCHC 32.7 L 33.0 RDW 13.9 13.9 Plt Count 197 209 MPV 7.9 7.4 Neut % (Auto) 88.8 H Lymph % (Auto) 7.3 L Garfield % (Auto) 3.1 Eos % (Auto) 0.4 Baso % (Auto) 0.4 Neut # (Auto) 7.3 H Lymph # (Auto) 0.6 L Garfield # (Auto) 0.3 Eos # (Auto) 0.0 Baso # (Auto) 0.0 Neutrophils % (Manual) 96 H Lymphocytes % (Manual) 3 L Monocytes % (Manual) 1 Platelet Estimate Normal RBC Morphology Normal Sodium 135 Potassium 4.7 Chloride 102 Carbon Dioxide 22 Anion Gap 16 BUN 27 H Creatinine 0.9 Est GFR ( Amer) > 60 Est GFR (Non-Af Amer) > 60 Random Glucose 144 H Calcium 8.9 Phosphorus Magnesium Total Bilirubin AST ALT Alkaline Phosphatase Total Protein Albumin Globulin Albumin/Globulin Ratio 01/07/19 01/07/19 01/08/19 17:12 22:52 06:00 WBC 11.8 H RBC 3.37 L Hgb 10.6 L Hct 31.6 L MCV 93.7 MCH 31.3 H MCHC 33.4 RDW 13.8 Plt Count 198 MPV 7.2 Neut % (Auto) Lymph % (Auto) Garfield % (Auto) Eos % (Auto) Baso % (Auto) Neut # (Auto) Lymph # (Auto) Garfield # (Auto) Eos # (Auto) Baso # (Auto) Neutrophils % (Manual) Lymphocytes % (Manual) Monocytes % (Manual) Platelet Estimate RBC Morphology Sodium 133 132 Potassium 4.5 4.7 Chloride 104 103 Carbon Dioxide 20 L 23 Anion Gap 15 11 BUN 25 H 28 H Creatinine 0.8 0.8 Est GFR ( Amer) > 60 > 60 Est GFR (Non-Af Amer) > 60 > 60 Random Glucose 152 H 144 H Calcium 7.9 L 7.9 L Phosphorus 3.8 4.5 Magnesium 1.5 L 2.6 H Total Bilirubin 0.5 AST 58 ALT 56 Alkaline Phosphatase 62 Total Protein 5.2 L Albumin 3.0 L Globulin 2.3 Albumin/Globulin Ratio 1.3 01/08/19 06:02 WBC 9.4 RBC 3.21 L Hgb 10.3 L Hct 30.0 L MCV 93.5 MCH 31.9 H MCHC 34.2 RDW 13.6 Plt Count 205 MPV 7.9 Neut % (Auto) 72.1 Lymph % (Auto) 9.4 L Garfield % (Auto) 16.7 H Eos % (Auto) 1.7 Baso % (Auto) 0.1 Neut # (Auto) 6.8 Lymph # (Auto) 0.9 L Garfield # (Auto) 1.6 H Eos # (Auto) 0.2 Baso # (Auto) 0.0 Neutrophils % (Manual) Lymphocytes % (Manual) Monocytes % (Manual) Platelet Estimate RBC Morphology Sodium Potassium Chloride Carbon Dioxide Anion Gap BUN Creatinine Est GFR ( Amer) Est GFR (Non-Af Amer) Random Glucose Calcium Phosphorus Magnesium Total Bilirubin AST ALT Alkaline Phosphatase Total Protein Albumin Globulin Albumin/Globulin Ratio Fingerstick Blood Sugar Results: 96 Critical Care Progress Note - Prophylaxis GI Prophylaxis GI: Pepsid - Prophylaxis DVT Prophylaxis DVT: Not Indicated - Nutrition Nutrition: Nutrition Category Date Time Status Liquid Diet [DIET] Diets 01/07/19 Dinner Active Assessment/Plan - Assessment and Plan (Free Text) Assessment: 83 M w/ PMhx of HTN, CVA,visual impairment & cardiac disease presents s/p syncpe likely secondary to gatroenteritis, found to have multiple abdominal aortic aneyursm. Patient is POD # 1 s/p EVAR w/ stents. Currently in ICU for overnight surveillance. PAtient now stable for transfer to med/surg floor. 1) Abdominal aortic aneurysm 2) Hypertension Plan: Neuro - A&O x3 - hx of macular degeneration Cardio - Hx of HTN, CABG, cardiac disease - C/w clopidogrel 75 mg daily, amlodipine 2.5 mg PO daily, rosuvastatin 5 mg HS Pulm - vitals wnl - continue to monitor GI - heart healthy diet Renal - BUN/Cr stable 27/0.9 - LR @83 mls/hr Endo - hx of hypothyrodism - c/w levothyroxine 75 mcg daily Heme - H/H stable pre-op, post op 2 point drop post op - AM labs stable - WBC elevated post op, likely reactive - cefazolin prophylactically per surgery - tylenol 650 mg PO Q6H per surgery - nystatin 1 applic top bid - hydrocortisone 1% BID PPx - GI: Pepcid 20 mg PO BID - DVT: per surgery <Jem Cummins - Last Filed: 01/08/19 17:55> CCU Objective - Vital Signs / Intake & Output Vital Signs (Last 4 hours): Vital Signs Temp Pulse Resp BP Pulse Ox 01/08/19 17:10 80 14 100 01/08/19 17:00 77 10 L 100 01/08/19 16:59 76 10 L 113/49 L 100 01/08/19 16:50 77 11 L 100 01/08/19 16:40 83 13 100 01/08/19 16:30 82 7 L 98/47 L 99 01/08/19 16:20 78 11 L 100 01/08/19 16:10 74 12 100 03/08/19 16:00 98.4 F 73 11 L 100 01/08/19 15:59 75 12 118/49 L 100 01/08/19 15:50 75 9 L 100 01/08/19 15:40 83 16 100 01/08/19 15:30 85 12 100 01/08/19 15:29 78 11 L 123/54 L 100 01/08/19 15:20 84 12 75 L 01/08/19 15:10 74 10 L 100 01/08/19 15:00 77 12 100 01/08/19 14:59 77 11 L 120/46 L 100 01/08/19 14:50 79 12 100 01/08/19 14:40 80 15 100 01/08/19 14:30 72 9 L 01/08/19 14:29 73 11 L 130/51 L 01/08/19 14:20 77 11 L 01/08/19 14:10 76 12 01/08/19 14:00 74 13 01/08/19 13:59 76 15 131/49 L Intake and Output (Last 8hrs): Intake & Output 01/08/19 01/08/19 01/08/19 06:59 14:59 22:59 Intake Total 1002 1364 349 Output Total 301 100 200 Balance 701 1264 149 Weight 152 lb 1.6 oz Intake: Intake, IV Amount 822 664 249 Left Wrist 747 498 Left wrist Y-port 75 Right Wrist 166 249 Oral 180 700 100 Output: Urine 301 100 200 Urine, Voided 301 100 200 Emesis 0 0 0 Other: # Bowel Movements 0 0 0 - Medications Active Medications: Active Medications Generic Name Dose Route Start Last Admin Trade Name Saadq PRN Reason Stop Dose Admin Acetaminophen 650 mg 01/07/19 18:00 01/08/19 17:20 Tylenol 325mg Tab PO Not Given Q6 DEJON Amlodipine Besylate 2.5 mg 01/02/19 19:45 01/08/19 09:17 Norvasc PO 2.5 mg DAILY DEJON Administration Clopidogrel Bisulfate 75 mg 12/31/18 10:00 01/08/19 09:18 Plavix PO 75 mg DAILY DEJON Administration Diphenhydramine HCl 50 mg 01/06/19 12:30 01/07/19 12:42 Benadryl IVP Not Given BID DEJON Famotidine 20 mg 12/31/18 14:00 01/08/19 17:21 Pepcid PO 20 mg BID DEJON Administration Hydrocortisone 1 gm 01/04/19 21:15 01/08/19 17:21 Cortizone 1% Cream TOP 1 applic BID DEJON Administration Cefazolin Sodium 500 mg/ 50 mls @ 100 mls/hr 01/07/19 19:00 01/08/19 10:31 Sodium Chloride IVPB 100 mls/hr Q8H DEJON Administration Protocol Lactated Ringer's 1,000 mls @ 83 mls/hr 01/07/19 15:45 01/08/19 16:00 Lactated Ringer's IV Not Given .Q12H3M DEJON Levothyroxine Sodium 75 mcg 01/02/19 06:30 01/08/19 06:43 Synthroid PO 75 mcg DAILY@0630 DEJON Administration Nystatin 1 applic 01/06/19 18:00 01/08/19 17:21 Nystop Topical Powder TOP 1 applic BID DEJON Administration Ivdqj-[id number] Ethyl Esters 1 gm 12/31/18 10:00 01/08/19 11:48 Lovaza PO 1 gm DAILY DEJON Administration Rosuvastatin Calcium 5 mg 12/31/18 22:00 01/07/19 22:32 Crestor PO 5 mg HS DEJON Administration Silver Sulfadiazine 0 ea 12/31/18 17:00 01/08/19 09:18 Silvadene 1% 20 Gm TOP 1 applic DAILY DEJON Administration - Patient Studies Lab Studies: Lab Studies 01/08/19 01/08/19 01/08/19 Range/Units 06:02 06:00 06:00 WBC 9.4 (4.8-10.8) K/uL RBC 3.21 L (4.40-5.90) Mil/uL Hgb 10.3 L (12.0-18.0) g/dL Hct 30.0 L (35.0-51.0) % MCV 93.5 (80.0-94.0) fL MCH 31.9 H (27.0-31.0) pg MCHC 34.2 (33.0-37.0) g/dL RDW 13.6 (11.5-14.5) % Plt Count 205 (130-400) K/uL MPV 7.9 (7.2-11.7) fL Neut % (Auto) 72.1 (50.0-75.0) % Lymph % (Auto) 9.4 L (20.0-40.0) % Garfield % (Auto) 16.7 H (0.0-10.0) % Eos % (Auto) 1.7 (0.0-4.0) % Baso % (Auto) 0.1 (0.0-2.0) % Neut # (Auto) 6.8 (1.8-7.0) K/uL Lymph # (Auto) 0.9 L (1.0-4.3) K/uL Garfield # (Auto) 1.6 H (0.0-0.8) K/uL Eos # (Auto) 0.2 (0.0-0.7) K/uL Baso # (Auto) 0.0 (0.0-0.2) K/uL Neutrophils % (Manual) 75 (50-75) % Band Neutrophils % 1 (0-2) % Lymphocytes % (Manual) 7 L (20-40) % Monocytes % (Manual) 17 H (0-10) % Platelet Estimate Normal (NORMAL) RBC Morphology Normal Sodium 132 (132-148) mmol/L Potassium 4.7 (3.6-5.2) mmol/L Chloride 103 (98-107) mmol/L Carbon Dioxide 23 (22-30) mmol/L Anion Gap 11 (10-20) BUN 28 H (9-20) mg/dL Creatinine 0.8 (0.8-1.5) mg/dL Est GFR ( Amer) > 60 Est GFR (Non-Af Amer) > 60 Random Glucose 144 H (75-110) mg/dL Calcium 7.9 L (8.6-10.4) mg/dl Phosphorus 4.5 (2.5-4.5) mg/dL Magnesium 2.6 H (1.6-2.3) mg/dL Total Bilirubin 0.5 (0.2-1.3) mg/dL AST 58 (17-59) U/L ALT 56 (21-72) U/L Alkaline Phosphatase 62 (38-126) U/L Total Protein 5.2 L (6.3-8.3) g/dL Albumin 3.0 L (3.5-5.0) g/dL Globulin 2.3 (2.2-3.9) gm/dL Albumin/Globulin Ratio 1.3 (1.0-2.1) RPR Nonreactive (NONREACTIVE) 01/07/19 Range/Units 22:52 WBC 11.8 H (4.8-10.8) K/uL RBC 3.37 L (4.40-5.90) Mil/uL Hgb 10.6 L (12.0-18.0) g/dL Hct 31.6 L (35.0-51.0) % MCV 93.7 (80.0-94.0) fL MCH 31.3 H (27.0-31.0) pg MCHC 33.4 (33.0-37.0) g/dL RDW 13.8 (11.5-14.5) % Plt Count 198 (130-400) K/uL MPV 7.2 (7.2-11.7) fL Neut % (Auto) (50.0-75.0) % Lymph % (Auto) (20.0-40.0) % Garfield % (Auto) (0.0-10.0) % Eos % (Auto) (0.0-4.0) % Baso % (Auto) (0.0-2.0) % Neut # (Auto) (1.8-7.0) K/uL Lymph # (Auto) (1.0-4.3) K/uL Garfield # (Auto) (0.0-0.8) K/uL Eos # (Auto) (0.0-0.7) K/uL Baso # (Auto) (0.0-0.2) K/uL Neutrophils % (Manual) (50-75) % Band Neutrophils % (0-2) % Lymphocytes % (Manual) (20-40) % Monocytes % (Manual) (0-10) % Platelet Estimate (NORMAL) RBC Morphology Sodium (132-148) mmol/L Potassium (3.6-5.2) mmol/L Chloride (98-107) mmol/L Carbon Dioxide (22-30) mmol/L Anion Gap (10-20) BUN (9-20) mg/dL Creatinine (0.8-1.5) mg/dL Est GFR ( Amer) Est GFR (Non-Af Amer) Random Glucose (75-110) mg/dL Calcium (8.6-10.4) mg/dl Phosphorus (2.5-4.5) mg/dL Magnesium (1.6-2.3) mg/dL Total Bilirubin (0.2-1.3) mg/dL AST (17-59) U/L ALT (21-72) U/L Alkaline Phosphatase (38-126) U/L Total Protein (6.3-8.3) g/dL Albumin (3.5-5.0) g/dL Globulin (2.2-3.9) gm/dL Albumin/Globulin Ratio (1.0-2.1) RPR (NONREACTIVE) Laboratory Results - last 24 hr 01/07/19 01/08/19 01/08/19 22:52 06:00 06:00 WBC 11.8 H RBC 3.37 L Hgb 10.6 L Hct 31.6 L MCV 93.7 MCH 31.3 H MCHC 33.4 RDW 13.8 Plt Count 198 MPV 7.2 Neut % (Auto) Lymph % (Auto) Garfield % (Auto) Eos % (Auto) Baso % (Auto) Neut # (Auto) Lymph # (Auto) Garfield # (Auto) Eos # (Auto) Baso # (Auto) Neutrophils % (Manual) Band Neutrophils % Lymphocytes % (Manual) Monocytes % (Manual) Platelet Estimate RBC Morphology Sodium 132 Potassium 4.7 Chloride 103 Carbon Dioxide 23 Anion Gap 11 BUN 28 H Creatinine 0.8 Est GFR ( Amer) > 60 Est GFR (Non-Af Amer) > 60 Random Glucose 144 H Calcium 7.9 L Phosphorus 4.5 Magnesium 2.6 H Total Bilirubin 0.5 AST 58 ALT 56 Alkaline Phosphatase 62 Total Protein 5.2 L Albumin 3.0 L Globulin 2.3 Albumin/Globulin Ratio 1.3 RPR Nonreactive 01/08/19 06:02 WBC 9.4 RBC 3.21 L Hgb 10.3 L Hct 30.0 L MCV 93.5 MCH 31.9 H MCHC 34.2 RDW 13.6 Plt Count 205 MPV 7.9 Neut % (Auto) 72.1 Lymph % (Auto) 9.4 L Garfield % (Auto) 16.7 H Eos % (Auto) 1.7 Baso % (Auto) 0.1 Neut # (Auto) 6.8 Lymph # (Auto) 0.9 L Garfield # (Auto) 1.6 H Eos # (Auto) 0.2 Baso # (Auto) 0.0 Neutrophils % (Manual) 75 Band Neutrophils % 1 Lymphocytes % (Manual) 7 L Monocytes % (Manual) 17 H Platelet Estimate Normal RBC Morphology Normal Sodium Potassium Chloride Carbon Dioxide Anion Gap BUN Creatinine Est GFR ( Amer) Est GFR (Non-Af Amer) Random Glucose Calcium Phosphorus Magnesium Total Bilirubin AST ALT Alkaline Phosphatase Total Protein Albumin Globulin Albumin/Globulin Ratio RPR Radiology Impressions: Radiology Impressions Fluoroscopy 01/07/19 16:15 IMPRESSION: Fluoroscopy provided. Critical Care Progress Note - Nutrition Nutrition: Nutrition Category Date Time Status Heart Healthy Diet [DIET] Diets 01/08/19 Dinner Active Assessment/Plan - Assessment and Plan (Free Text) Plan: Above patient seen and examined at bedside. Patient remains hemodynamically stable -no hematoma on examination -continue to monitor -above resident note reviewed and verified. - Date & Time Date: 01/08/19 Time: 17:55
[2019-01-08 07:54] LABS: BANDS 1 % (0-2); LYMPHOCYTE 7 % (20-40); MONOCYTE 17 % (0-10); NEUTROPHIL 75 % (50-75); TOTAL CELLS COUNTED 100
[2019-01-08 07:56] LABS: PLATELET ESTIMATE NORMAL (NORMAL)
--- NOTE | 2019-01-08 07:59 | CP.PCM.PN ---
Subjective - Date & Time of Evaluation Date of Evaluation: 01/08/19 Time of Evaluation: 07:47 - Subjective Subjective: General Surgery - Dr. Jerry Pt S&E. RACHEL. Pt. complains of some back pain which he states is from being on bedrest. Otherwise he denies any complaints. Both DP/PT Pulses palpable in Right foot and Dopplerable on Left. Pt denies any Fevers/Chills/SOB/Chest pain. Objective - Vital Signs/Intake and Output Vital Signs (last 24 hours): Temp Pulse Resp BP Pulse Ox 98.3 F 73 10 L 128/58 L 100 01/07/19 23:33 01/07/19 19:00 01/07/19 19:00 01/07/19 19:00 01/07/19 19:00 Intake and Output: 01/08/19 01/08/19 06:59 18:59 Intake Total 203 Output Total 60 Balance 143 - Medications Medications: Current Medications Acetaminophen (Tylenol 325mg Tab) 650 mg PO Q6 [facility] Last Admin: 01/08/19 06:30 Dose: 650 mg Amlodipine Besylate (Norvasc) 2.5 mg PO DAILY [facility] Last Admin: 01/07/19 10:45 Dose: 2.5 mg Clopidogrel Bisulfate (Plavix) 75 mg PO DAILY [facility] Last Admin: 01/07/19 10:45 Dose: 75 mg Diphenhydramine HCl (Benadryl) 50 mg IVP BID [facility] Last Admin: 01/07/19 12:42 Dose: Not Given Famotidine (Pepcid) 20 mg PO BID [facility] Last Admin: 01/07/19 18:03 Dose: 20 mg Hydrocortisone (Cortizone 1% Cream) 1 gm TOP BID [facility] Last Admin: 01/07/19 18:05 Dose: 1 applic Cefazolin Sodium 500 mg/ (Sodium Chloride) 50 mls @ 100 mls/hr IVPB Q8H [facility]; Protocol Last Admin: 01/08/19 03:55 Dose: 100 mls/hr Lactated Ringer's (Lactated Ringer's) 1,000 mls @ 83 mls/hr IV .Q12H3M [facility] Last Admin: 01/08/19 06:26 Dose: 83 mls/hr Levothyroxine Sodium (Synthroid) 75 mcg PO DAILY@0630 [facility] Last Admin: 01/08/19 06:43 Dose: 75 mcg Nystatin (Nystop Topical Powder) 1 applic TOP BID [facility] Last Admin: 01/07/19 18:06 Dose: 1 applic [id number] Ethyl Esters (Lovaza) 1 gm PO DAILY [facility] Last Admin: 01/07/19 10:46 Dose: 1 gm Rosuvastatin Calcium (Crestor) 5 mg PO HS [facility] Last Admin: 01/07/19 22:32 Dose: 5 mg Silver Sulfadiazine (Silvadene 1% 20 Gm) 0 ea TOP DAILY [facility] Last Admin: 01/07/19 12:43 Dose: Not Given - Labs Labs: 01/08/19 06:02 01/08/19 06:00 PT 12.3 SECONDS (9.7-12.2) H 01/07/19 07:05 INR 1.1 01/07/19 07:05 APTT 25 SECONDS (21-34) 12/30/18 23:00 - Constitutional Appears: No Acute Distress - Head Exam Head Exam: ATRAUMATIC, NORMAL INSPECTION, NORMOCEPHALIC - Eye Exam Eye Exam: Normal appearance - Respiratory Exam Respiratory Exam: NORMAL BREATHING PATTERN. absent: Respiratory Distress - Cardiovascular Exam Cardiovascular Exam: REGULAR RHYTHM - GI/Abdominal Exam GI & Abdominal Exam: Soft. absent: Distended, Firm, Guarding, Rigid, Tenderness - Extremities Exam Additional comments: groin sites c/d/i with no hematoma - Neurological Exam Neurological Exam: Alert, Oriented x3 - Psychiatric Exam Psychiatric exam: Normal Affect, Normal Mood - Skin Skin Exam: Dry, Intact Assessment and Plan - Assessment and Plan (Free Text) Assessment: 83M w/ AAA s/p EVAR, POD 1 Plan: -Doing well post-operatively -May be OOB -D/C kraft -Advance diet as tolerated -Monitor pulses -BP control Dw Dr Rosalino Ambrose PGY4
[2019-01-08] MEDS: Hydrocortisone 1% Cream (30 GM) TOP SCH ×2 (09:17→17:21)
[2019-01-08] MEDS: Silver Sulfadiazine 1% Cream (20 gm) TOP SCH (09:18)
[2019-01-08] MEDS ORDERED: Magnesium Hydroxide Susp 30 ml UD PO ONE (11:15)
--- NOTE | 2019-01-08 11:15 | CP.PCM.PN ---
Subjective - Date & Time of Evaluation Date of Evaluation: 01/08/19 Time of Evaluation: 11:14 - Subjective Subjective: s/p vascular procedure for AAA Constipated Objective - Vital Signs/Intake and Output Vital Signs (last 24 hours): Temp Pulse Resp BP Pulse Ox 98.1 F 72 11 L 135/54 L 99 01/08/19 08:00 01/08/19 08:30 01/08/19 08:30 01/08/19 08:29 01/08/19 08:30 Intake and Output: 01/08/19 01/08/19 06:59 18:59 Intake Total 1649 166 Output Total 496 0 Balance 1153 166 - Medications Medications: Current Medications Acetaminophen (Tylenol 325mg Tab) 650 mg PO Q6 [facility] Last Admin: 01/08/19 06:30 Dose: 650 mg Amlodipine Besylate (Norvasc) 2.5 mg PO DAILY [facility] Last Admin: 01/08/19 09:17 Dose: 2.5 mg Clopidogrel Bisulfate (Plavix) 75 mg PO DAILY [facility] Last Admin: 01/08/19 09:18 Dose: 75 mg Diphenhydramine HCl (Benadryl) 50 mg IVP BID [facility] Last Admin: 01/07/19 12:42 Dose: Not Given Famotidine (Pepcid) 20 mg PO BID [facility] Last Admin: 01/08/19 09:17 Dose: 20 mg Hydrocortisone (Cortizone 1% Cream) 1 gm TOP BID [facility] Last Admin: 01/08/19 09:17 Dose: 1 applic Cefazolin Sodium 500 mg/ (Sodium Chloride) 50 mls @ 100 mls/hr IVPB Q8H [facility]; Protocol Last Admin: 01/08/19 10:31 Dose: 100 mls/hr Lactated Ringer's (Lactated Ringer's) 1,000 mls @ 83 mls/hr IV .Q12H3M [facility] Last Admin: 01/08/19 06:26 Dose: 83 mls/hr Levothyroxine Sodium (Synthroid) 75 mcg PO DAILY@0630 [facility] Last Admin: 01/08/19 06:43 Dose: 75 mcg Nystatin (Nystop Topical Powder) 1 applic TOP BID [facility] Last Admin: 01/08/19 09:18 Dose: 1 applic [id number] Ethyl Esters (Lovaza) 1 gm PO DAILY [facility] Last Admin: 01/07/19 10:46 Dose: 1 gm Rosuvastatin Calcium (Crestor) 5 mg PO HS [facility] Last Admin: 01/07/19 22:32 Dose: 5 mg Silver Sulfadiazine (Silvadene 1% 20 Gm) 0 ea TOP DAILY [facility] Last Admin: 01/08/19 09:18 Dose: 1 applic - Labs Labs: 01/08/19 06:02 01/08/19 06:00 PT 12.3 SECONDS (9.7-12.2) H 01/07/19 07:05 INR 1.1 01/07/19 07:05 APTT 25 SECONDS (21-34) 12/30/18 23:00 - Constitutional Appears: Well - Head Exam Head Exam: NORMOCEPHALIC - Cardiovascular Exam Cardiovascular Exam: REGULAR RHYTHM - GI/Abdominal Exam GI & Abdominal Exam: Soft. absent: Tenderness Assessment and Plan (1) Aortic aneurysm Assessment & Plan: Repaired Status: Acute (2) Enteritis Assessment & Plan: stable Now back to baseline constipation Will order laxative Status: Acute
[2019-01-08] MEDS: Omega-3-Acid Ethyl Esters 1 GM Cap PO SCH (11:48)
--- NOTE | 2019-01-08 16:09 | RAD ---
Date of service: 01/07/2019 PROCEDURE: Intraoperative fluoroscopy HISTORY: ABDOMINAL ANEURISMA REPEAR COMPARISON: Not available TECHNIQUE: Intraoperative fluoroscopy was provided for repair of abdominal aortic stent. Total time of fluoroscopy was 2164.0 sec. Cumulative dose was 1051.78 mGy. FINDINGS: Multiple fluoroscopic spot films are submitted. These films are on file for review. IMPRESSION: Fluoroscopy provided.
--- NOTE | 2019-01-08 18:20 | CP.PCM.PN ---
Subjective - Date & Time of Evaluation Date of Evaluation: 01/08/19 Time of Evaluation: 18:17 - Subjective Subjective: INFECTIOUS DISEASE ICU PROGRESS NOTES JOSE ANTONIO JUAREZ MD, FACP 01/08/2019 CHART REVIEWED PT EXAMINED CASE DISCUSSED WITH PMD CLINICALLY HIS RASH IS ALREADY MUCH IMPROVED IN 24 HOURS Patient seen and examined at bedside. Overnight Hemoglobin remained stable as patient is POD # 1 s/p EVAR w/ 3 stents and balloon dilation. Patient has only complaint of some pain near incision site. Patient denies chest pain, SOB, nausea, vomiting, headaches, vision changes, diarrhea, constipation. CCU Objective - Vital Signs / Intake & Output Intake and Output (Last 8hrs): Intake & Output 01/07/19 01/08/19 01/08/19 22:59 06:59 14:59 Intake Total 469 Output Total 290 Balance 179 Intake: IV 100 Intake, IV Amount 249 Left Wrist 249 Oral 120 Output: Urine 290 Urethral (Castro) 165 Emesis 0 Other: # Bowel Movements 0 - Physical Exam Head: Positive for: Other (abrahasion on central frontal region, bandage clean, dry, intact ) Extroacular Muscles: Positive for: EOMI Conjunctiva: Positive for: Normal Mouth: Positive for: Moist Mucous Membranes Neck: Positive for: Normal Range of Motion - Medications Active Medications: Active Medications Generic Name Dose Route Start Last Admin Trade Name Freq PRN Reason Stop Dose Admin Acetaminophen 650 mg 01/07/19 18:00 01/08/19 06:30 Tylenol 325mg Tab PO 650 mg Q6 DEJON Administration Amlodipine Besylate 2.5 mg 01/02/19 19:45 01/07/19 10:45 Norvasc PO 2.5 mg DAILY DEJON Administration Clopidogrel Bisulfate 75 mg 12/31/18 10:00 01/07/19 10:45 Plavix PO 75 mg DAILY DEJON Administration Diphenhydramine HCl 50 mg 01/06/19 12:30 01/07/19 12:42 Benadryl IVP Not Given BID DEJON Famotidine 20 mg 12/31/18 14:00 01/07/19 18:03 Pepcid PO 20 mg BID DEJON Administration Hydrocortisone 1 gm 01/04/19 21:15 01/07/19 18:05 Cortizone 1% Cream TOP 1 applic BID DEJON Administration Cefazolin Sodium 500 mg/ 50 mls @ 100 mls/hr 01/07/19 19:00 01/08/19 03:55 Sodium Chloride IVPB 100 mls/hr Q8H DEJON Administration Protocol Lactated Ringer's 1,000 mls @ 83 mls/hr 01/07/19 15:45 01/08/19 06:26 Lactated Ringer's IV 83 mls/hr .Q12H3M DEJON Administration Levothyroxine Sodium 75 mcg 01/02/19 06:30 01/08/19 06:43 Synthroid PO 75 mcg DAILY@0630 DEJON Administration Nystatin 1 applic 01/06/19 18:00 01/07/19 18:06 Nystop Topical Powder TOP 1 applic BID DEJON Administration [id number] Ethyl Esters 1 gm 12/31/18 10:00 01/07/19 10:46 Lovaza PO 1 gm DAILY DEJON Administration Rosuvastatin Calcium 5 mg 12/31/18 22:00 01/07/19 22:32 Crestor PO 5 mg HS DEJON Administration Silver Sulfadiazine 0 ea 12/31/18 17:00 01/07/19 12:43 Silvadene 1% 20 Gm TOP Not Given DAILY DEJON - Patient Studies Lab Studies: Lab Studies 01/08/19 01/08/19 01/07/19 Range/Units 06:02 06:00 22:52 WBC 9.4 11.8 H (4.8-10.8) K/uL RBC 3.21 L 3.37 L (4.40-5.90) Mil/uL Hgb 10.3 L 10.6 L (12.0-18.0) g/dL Hct 30.0 L 31.6 L (35.0-51.0) % MCV 93.5 93.7 (80.0-94.0) fL MCH 31.9 H 31.3 H (27.0-31.0) pg MCHC 34.2 33.4 (33.0-37.0) g/dL RDW 13.6 13.8 (11.5-14.5) % Plt Count 205 198 (130-400) K/uL MPV 7.9 7.2 (7.2-11.7) fL Neut % (Auto) 72.1 (50.0-75.0) % Lymph % (Auto) 9.4 L (20.0-40.0) % [place] % (Auto) 16.7 H (0.0-10.0) % Eos % (Auto) 1.7 (0.0-4.0) % Baso % (Auto) 0.1 (0.0-2.0) % Neut # (Auto) 6.8 (1.8-7.0) K/uL Lymph # (Auto) 0.9 L (1.0-4.3) K/uL [place] # (Auto) 1.6 H (0.0-0.8) K/uL Eos # (Auto) 0.2 (0.0-0.7) K/uL Baso # (Auto) 0.0 (0.0-0.2) K/uL Neutrophils % (Manual) (50-75) % Lymphocytes % (Manual) (20-40) % Monocytes % (Manual) (0-10) % Platelet Estimate (NORMAL) RBC Morphology Sodium 132 (132-148) mmol/L Potassium 4.7 (3.6-5.2) mmol/L Chloride 103 (98-107) mmol/L Carbon Dioxide 23 (22-30) mmol/L Anion Gap 11 (10-20) BUN 28 H (9-20) mg/dL Creatinine 0.8 (0.8-1.5) mg/dL Est GFR ( Amer) > 60 Est GFR (Non-Af Amer) > 60 Random Glucose 144 H (75-110) mg/dL Calcium 7.9 L (8.6-10.4) mg/dl Phosphorus 4.5 (2.5-4.5) mg/dL Magnesium 2.6 H (1.6-2.3) mg/dL Total Bilirubin 0.5 (0.2-1.3) mg/dL AST 58 (17-59) U/L ALT 56 (21-72) U/L Alkaline Phosphatase 62 (38-126) U/L Total Protein 5.2 L (6.3-8.3) g/dL Albumin 3.0 L (3.5-5.0) g/dL Globulin 2.3 (2.2-3.9) gm/dL Albumin/Globulin Ratio 1.3 (1.0-2.1) 01/07/19 01/07/19 01/07/19 Range/Units 17:12 16:42 07:05 WBC 13.9 H D (4.8-10.8) K/uL RBC 3.62 L (4.40-5.90) Mil/uL Hgb 11.2 L D (12.0-18.0) g/dL Hct 33.9 L (35.0-51.0) % MCV 93.8 D (80.0-94.0) fL MCH 31.0 (27.0-31.0) pg MCHC 33.0 (33.0-37.0) g/dL RDW 13.9 (11.5-14.5) % Plt Count 209 (130-400) K/uL MPV 7.4 (7.2-11.7) fL Neut % (Auto) (50.0-75.0) % Lymph % (Auto) (20.0-40.0) % [place] % (Auto) (0.0-10.0) % Eos % (Auto) (0.0-4.0) % Baso % (Auto) (0.0-2.0) % Neut # (Auto) (1.8-7.0) K/uL Lymph # (Auto) (1.0-4.3) K/uL [place] # (Auto) (0.0-0.8) K/uL Eos # (Auto) (0.0-0.7) K/uL Baso # (Auto) (0.0-0.2) K/uL Neutrophils % (Manual) (50-75) % Lymphocytes % (Manual) (20-40) % Monocytes % (Manual) (0-10) % Platelet Estimate (NORMAL) RBC Morphology Sodium 133 135 (132-148) mmol/L Potassium 4.5 4.7 (3.6-5.2) mmol/L Chloride 104 102 (98-107) mmol/L Carbon Dioxide 20 L 22 (22-30) mmol/L Anion Gap 15 16 (10-20) BUN 25 H 27 H (9-20) mg/dL Creatinine 0.8 0.9 (0.8-1.5) mg/dL Est GFR ( Amer) > 60 > 60 Est GFR (Non-Af Amer) > 60 > 60 Random Glucose 152 H 144 H (75-110) mg/dL Calcium 7.9 L 8.9 (8.6-10.4) mg/dl Phosphorus 3.8 (2.5-4.5) mg/dL Magnesium 1.5 L (1.6-2.3) mg/dL Total Bilirubin (0.2-1.3) mg/dL AST (17-59) U/L ALT (21-72) U/L Alkaline Phosphatase (38-126) U/L Total Protein (6.3-8.3) g/dL Albumin (3.5-5.0) g/dL Globulin (2.2-3.9) gm/dL Albumin/Globulin Ratio (1.0-2.1) 01/07/19 Range/Units 07:05 WBC 8.3 (4.8-10.8) K/uL RBC 4.51 (4.40-5.90) Mil/uL Hgb 14.2 (12.0-18.0) g/dL Hct 43.4 (35.0-51.0) % MCV 96.2 H D (80.0-94.0) fL MCH 31.4 H (27.0-31.0) pg MCHC 32.7 L (33.0-37.0) g/dL RDW 13.9 (11.5-14.5) % Plt Count 197 (130-400) K/uL MPV 7.9 (7.2-11.7) fL Neut % (Auto) 88.8 H (50.0-75.0) % Lymph % (Auto) 7.3 L (20.0-40.0) % [place] % (Auto) 3.1 (0.0-10.0) % Eos % (Auto) 0.4 (0.0-4.0) % Baso % (Auto) 0.4 (0.0-2.0) % Neut # (Auto) 7.3 H (1.8-7.0) K/uL Lymph # (Auto) 0.6 L (1.0-4.3) K/uL [place] # (Auto) 0.3 (0.0-0.8) K/uL Eos # (Auto) 0.0 (0.0-0.7) K/uL Baso # (Auto) 0.0 (0.0-0.2) K/uL Neutrophils % (Manual) 96 H (50-75) % Lymphocytes % (Manual) 3 L (20-40) % Monocytes % (Manual) 1 (0-10) % Platelet Estimate Normal (NORMAL) RBC Morphology Normal Sodium (132-148) mmol/L Potassium (3.6-5.2) mmol/L Chloride (98-107) mmol/L Carbon Dioxide (22-30) mmol/L Anion Gap (10-20) BUN (9-20) mg/dL Creatinine (0.8-1.5) mg/dL Est GFR ( Amer) Est GFR (Non-Af Amer) Random Glucose (75-110) mg/dL Calcium (8.6-10.4) mg/dl Phosphorus (2.5-4.5) mg/dL Magnesium (1.6-2.3) mg/dL Total Bilirubin (0.2-1.3) mg/dL AST (17-59) U/L ALT (21-72) U/L Alkaline Phosphatase (38-126) U/L Total Protein (6.3-8.3) g/dL Albumin (3.5-5.0) g/dL Globulin (2.2-3.9) gm/dL Albumin/Globulin Ratio (1.0-2.1) Laboratory Results - last 24 hr 01/07/19 01/07/19 01/07/19 07:05 07:05 16:42 WBC 8.3 13.9 H D RBC 4.51 3.62 L Hgb 14.2 11.2 L D Hct 43.4 33.9 L MCV 96.2 H D 93.8 D MCH 31.4 H 31.0 MCHC 32.7 L 33.0 RDW 13.9 13.9 Plt Count 197 209 MPV 7.9 7.4 Neut % (Auto) 88.8 H Lymph % (Auto) 7.3 L [place] % (Auto) 3.1 Eos % (Auto) 0.4 Baso % (Auto) 0.4 Neut # (Auto) 7.3 H Lymph # (Auto) 0.6 L [place] # (Auto) 0.3 Eos # (Auto) 0.0 Baso # (Auto) 0.0 Neutrophils % (Manual) 96 H Lymphocytes % (Manual) 3 L Monocytes % (Manual) 1 Platelet Estimate Normal RBC Morphology Normal Sodium 135 Potassium 4.7 Chloride 102 Carbon Dioxide 22 Anion Gap 16 BUN 27 H Creatinine 0.9 Est GFR ( Amer) > 60 Est GFR (Non-Af Amer) > 60 Random Glucose 144 H Calcium 8.9 Phosphorus Magnesium Total Bilirubin AST ALT Alkaline Phosphatase Total Protein Albumin Globulin Albumin/Globulin Ratio 01/07/19 01/07/19 01/08/19 17:12 22:52 06:00 WBC 11.8 H RBC 3.37 L Hgb 10.6 L Hct 31.6 L MCV 93.7 MCH 31.3 H MCHC 33.4 RDW 13.8 Plt Count 198 MPV 7.2 Neut % (Auto) Lymph % (Auto) [place] % (Auto) Eos % (Auto) Baso % (Auto) Neut # (Auto) Lymph # (Auto) [place] # (Auto) Eos # (Auto) Baso # (Auto) Neutrophils % (Manual) Lymphocytes % (Manual) Monocytes % (Manual) Platelet Estimate RBC Morphology Sodium 133 132 Potassium 4.5 4.7 Chloride 104 103 Carbon Dioxide 20 L 23 Anion Gap 15 11 BUN 25 H 28 H Creatinine 0.8 0.8 Est GFR ( Amer) > 60 > 60 Est GFR (Non-Af Amer) > 60 > 60 Random Glucose 152 H 144 H Calcium 7.9 L 7.9 L Phosphorus 3.8 4.5 Magnesium 1.5 L 2.6 H Total Bilirubin 0.5 AST 58 ALT 56 Alkaline Phosphatase 62 Total Protein 5.2 L Albumin 3.0 L Globulin 2.3 Albumin/Globulin Ratio 1.3 01/08/19 06:02 WBC 9.4 RBC 3.21 L Hgb 10.3 L Hct 30.0 L MCV 93.5 MCH 31.9 H MCHC 34.2 RDW 13.6 Plt Count 205 MPV 7.9 Neut % (Auto) 72.1 Lymph % (Auto) 9.4 L [place] % (Auto) 16.7 H Eos % (Auto) 1.7 Baso % (Auto) 0.1 Neut # (Auto) 6.8 Lymph # (Auto) 0.9 L [place] # (Auto) 1.6 H Eos # (Auto) 0.2 Baso # (Auto) 0.0 Neutrophils % (Manual) Lymphocytes % (Manual) Monocytes % (Manual) Platelet Estimate RBC Morphology Sodium Potassium Chloride Carbon Dioxide Anion Gap BUN Creatinine Est GFR ( Amer) Est GFR (Non-Af Amer) Random Glucose Calcium Phosphorus Magnesium Total Bilirubin AST ALT Alkaline Phosphatase Total Protein Albumin Globulin Albumin/Globulin Ratio Fingerstick Blood Sugar Results: 96 Critical Care Progress Note - Prophylaxis GI Prophylaxis GI: Pepsid - Prophylaxis DVT Prophylaxis DVT: Not Indicated - Nutrition Nutrition: Nutrition Category Date Time Status Liquid Diet [DIET] Diets 01/07/19 Dinner Active Assessment/Plan - Assessment and Plan (Free Text) Assessment: 83 M w/ PMhx of HTN, CVA,visual impairment & cardiac disease presents s/p syncpe likely secondary to gatroenteritis, found to have multiple abdominal aortic aneyursm. Patient is POD # 1 s/p EVAR w/ stents. Currently in ICU for overnight surveillance. PAtient now stable for transfer to med/surg floor. 1) Abdominal aortic aneurysm 2) Hypertension 3) CANDIDAL RASH Plan: Neuro - A&O x3 - hx of macular degeneration Cardio - Hx of HTN, CABG, cardiac disease - C/w clopidogrel 75 mg daily, amlodipine 2.5 mg PO daily, rosuvastatin 5 mg HS Pulm - vitals wnl - continue to monitor GI - heart healthy diet Renal - BUN/Cr stable 27/0.9 - LR @83 mls/hr Endo - hx of hypothyrodism - c/w levothyroxine 75 mcg daily Heme - H/H stable pre-op, post op 2 point drop post op - AM labs stable - WBC elevated post op, likely reactive - cefazolin prophylactically per surgery - tylenol 650 mg PO Q6H per surgery - nystatin 1 applic top bid - hydrocortisone 1% BID PPx - GI: Pepcid 20 mg PO BID - DVT: per surgery CCU Objective - Vital Signs / Intake & Output Vital Signs (Last 4 hours): Vital Signs Temp Pulse Resp BP Pulse Ox 01/08/19 17:10 80 14 100 01/08/19 17:00 77 10 L 100 01/08/19 16:59 76 10 L 113/49 L 100 01/08/19 16:50 77 11 L 100 01/08/19 16:40 83 13 100 01/08/19 16:30 82 7 L 98/47 L 99 01/08/19 16:20 78 11 L 100 01/08/19 16:10 74 12 100 01/08/19 16:00 98.4 F 73 11 L 100 01/08/19 15:59 75 12 118/49 L 100 01/08/19 15:50 75 9 L 100 01/08/19 15:40 83 16 100 01/08/19 15:30 85 12 100 01/08/19 15:29 78 11 L 123/54 L 100 01/08/19 15:20 84 12 75 L 01/08/19 15:10 74 10 L 100 01/08/19 15:00 77 12 100 01/08/19 14:59 77 11 L 120/46 L 100 01/08/19 14:50 79 12 100 01/08/19 14:40 80 15 100 01/08/19 14:30 72 9 L 01/08/19 14:29 73 11 L 130/51 L 01/08/19 14:20 77 11 L 01/08/19 14:10 76 12 01/08/19 14:00 74 13 01/08/19 13:59 76 15 131/49 L Intake and Output (Last 8hrs): Intake & Output 01/08/19 01/08/19 01/08/19 06:59 14:59 22:59 Intake Total 1002 1364 349 Output Total 301 100 200 Balance 701 1264 149 Weight 152 lb 1.6 oz Intake: Intake, IV Amount 822 664 249 Left Wrist 747 498 Left wrist Y-port 75 Right Wrist 166 249 Oral 180 700 100 Output: Urine 301 100 200 Urine, Voided 301 100 200 Emesis 0 0 0 Other: # Bowel Movements 0 0 0 - Medications Active Medications: Active Medications Generic Name Dose Route Start Last Admin Trade Name Saadq PRN Reason Stop Dose Admin Acetaminophen 650 mg 01/07/19 18:00 01/08/19 17:20 Tylenol 325mg Tab PO Not Given Q6 DEJON Amlodipine Besylate 2.5 mg 01/02/19 19:45 01/08/19 09:17 Norvasc PO 2.5 mg DAILY DEJON Administration Clopidogrel Bisulfate 75 mg 12/31/18 10:00 01/08/19 09:18 Plavix PO 75 mg DAILY DEJON Administration Diphenhydramine HCl 50 mg 01/06/19 12:30 01/07/19 12:42 Benadryl IVP Not Given BID DEJON Famotidine 20 mg 12/31/18 14:00 01/08/19 17:21 Pepcid PO 20 mg BID DEJON Administration Hydrocortisone 1 gm 01/04/19 21:15 01/08/19 17:21 Cortizone 1% Cream TOP 1 applic BID DEJON Administration Cefazolin Sodium 500 mg/ 50 mls @ 100 mls/hr 01/07/19 19:00 01/08/19 10:31 Sodium Chloride IVPB 100 mls/hr Q8H DEJON Administration Protocol Lactated Ringer's 1,000 mls @ 83 mls/hr 01/07/19 15:45 01/08/19 16:00 Lactated Ringer's IV Not Given .Q12H3M DEJON Levothyroxine Sodium 75 mcg 01/02/19 06:30 01/08/19 06:43 Synthroid PO 75 mcg DAILY@0630 DEJON Administration Nystatin 1 applic 01/06/19 18:00 01/08/19 17:21 Nystop Topical Powder TOP 1 applic BID DEJON Administration Dtzml-2-Pbpe Ethyl Esters 1 gm 12/31/18 10:00 01/08/19 11:48 Lovaza PO 1 gm DAILY DEJON Administration Rosuvastatin Calcium 5 mg 12/31/18 22:00 01/07/19 22:32 Crestor PO 5 mg HS DEJON Administration Silver Sulfadiazine 0 ea 12/31/18 17:00 01/08/19 09:18 Silvadene 1% 20 Gm TOP 1 applic DAILY DEJON Administration - Patient Studies Lab Studies: Lab Studies 01/08/19 01/08/19 01/08/19 Range/Units 06:02 06:00 06:00 WBC 9.4 (4.8-10.8) K/uL RBC 3.21 L (4.40-5.90) Mil/uL Hgb 10.3 L (12.0-18.0) g/dL Hct 30.0 L (35.0-51.0) % MCV 93.5 (80.0-94.0) fL MCH 31.9 H (27.0-31.0) pg MCHC 34.2 (33.0-37.0) g/dL RDW 13.6 (11.5-14.5) % Plt Count 205 (130-400) K/uL MPV 7.9 (7.2-11.7) fL Neut % (Auto) 72.1 (50.0-75.0) % Lymph % (Auto) 9.4 L (20.0-40.0) % [place] % (Auto) 16.7 H (0.0-10.0) % Eos % (Auto) 1.7 (0.0-4.0) % Baso % (Auto) 0.1 (0.0-2.0) % Neut # (Auto) 6.8 (1.8-7.0) K/uL Lymph # (Auto) 0.9 L (1.0-4.3) K/uL [place] # (Auto) 1.6 H (0.0-0.8) K/uL Eos # (Auto) 0.2 (0.0-0.7) K/uL Baso # (Auto) 0.0 (0.0-0.2) K/uL Neutrophils % (Manual) 75 (50-75) % Band Neutrophils % 1 (0-2) % Lymphocytes % (Manual) 7 L (20-40) % Monocytes % (Manual) 17 H (0-10) % Platelet Estimate Normal (NORMAL) RBC Morphology Normal Sodium 132 (132-148) mmol/L Potassium 4.7 (3.6-5.2) mmol/L Chloride 103 (98-107) mmol/L Carbon Dioxide 23 (22-30) mmol/L Anion Gap 11 (10-20) BUN 28 H (9-20) mg/dL Creatinine 0.8 (0.8-1.5) mg/dL Est GFR ( Amer) > 60 Est GFR (Non-Af Amer) > 60 Random Glucose 144 H (75-110) mg/dL Calcium 7.9 L (8.6-10.4) mg/dl Phosphorus 4.5 (2.5-4.5) mg/dL Magnesium 2.6 H (1.6-2.3) mg/dL Total Bilirubin 0.5 (0.2-1.3) mg/dL AST 58 (17-59) U/L ALT 56 (21-72) U/L Alkaline Phosphatase 62 (38-126) U/L Total Protein 5.2 L (6.3-8.3) g/dL Albumin 3.0 L (3.5-5.0) g/dL Globulin 2.3 (2.2-3.9) gm/dL Albumin/Globulin Ratio 1.3 (1.0-2.1) RPR Nonreactive (NONREACTIVE) 01/07/19 Range/Units 22:52 WBC 11.8 H (4.8-10.8) K/uL RBC 3.37 L (4.40-5.90) Mil/uL Hgb 10.6 L (12.0-18.0) g/dL Hct 31.6 L (35.0-51.0) % MCV 93.7 (80.0-94.0) fL MCH 31.3 H (27.0-31.0) pg MCHC 33.4 (33.0-37.0) g/dL RDW 13.8 (11.5-14.5) % Plt Count 198 (130-400) K/uL MPV 7.2 (7.2-11.7) fL Neut % (Auto) (50.0-75.0) % Lymph % (Auto) (20.0-40.0) % [place] % (Auto) (0.0-10.0) % Eos % (Auto) (0.0-4.0) % Baso % (Auto) (0.0-2.0) % Neut # (Auto) (1.8-7.0) K/uL Lymph # (Auto) (1.0-4.3) K/uL [place] # (Auto) (0.0-0.8) K/uL Eos # (Auto) (0.0-0.7) K/uL Baso # (Auto) (0.0-0.2) K/uL Neutrophils % (Manual) (50-75) % Band Neutrophils % (0-2) % Lymphocytes % (Manual) (20-40) % Monocytes % (Manual) (0-10) % Platelet Estimate (NORMAL) RBC Morphology Sodium (132-148) mmol/L Potassium (3.6-5.2) mmol/L Chloride (98-107) mmol/L Carbon Dioxide (22-30) mmol/L Anion Gap (10-20) BUN (9-20) mg/dL Creatinine (0.8-1.5) mg/dL Est GFR ( Amer) Est GFR (Non-Af Amer) Random Glucose (75-110) mg/dL Calcium (8.6-10.4) mg/dl Phosphorus (2.5-4.5) mg/dL Magnesium (1.6-2.3) mg/dL Total Bilirubin (0.2-1.3) mg/dL AST (17-59) U/L ALT (21-72) U/L Alkaline Phosphatase (38-126) U/L Total Protein (6.3-8.3) g/dL Albumin (3.5-5.0) g/dL Globulin (2.2-3.9) gm/dL Albumin/Globulin Ratio (1.0-2.1) RPR (NONREACTIVE) Laboratory Results - last 24 hr 01/07/19 01/08/19 01/08/19 22:52 06:00 06:00 WBC 11.8 H RBC 3.37 L Hgb 10.6 L Hct 31.6 L MCV 93.7 MCH 31.3 H MCHC 33.4 RDW 13.8 Plt Count 198 MPV 7.2 Neut % (Auto) Lymph % (Auto) [place] % (Auto) Eos % (Auto) Baso % (Auto) Neut # (Auto) Lymph # (Auto) [place] # (Auto) Eos # (Auto) Baso # (Auto) Neutrophils % (Manual) Band Neutrophils % Lymphocytes % (Manual) Monocytes % (Manual) Platelet Estimate RBC Morphology Sodium 132 Potassium 4.7 Chloride 103 Carbon Dioxide 23 Anion Gap 11 BUN 28 H Creatinine 0.8 Est GFR ( Amer) > 60 Est GFR (Non-Af Amer) > 60 Random Glucose 144 H Calcium 7.9 L Phosphorus 4.5 Magnesium 2.6 H Total Bilirubin 0.5 AST 58 ALT 56 Alkaline Phosphatase 62 Total Protein 5.2 L Albumin 3.0 L Globulin 2.3 Albumin/Globulin Ratio 1.3 RPR Nonreactive 01/08/19 06:02 WBC 9.4 RBC 3.21 L Hgb 10.3 L Hct 30.0 L MCV 93.5 MCH 31.9 H MCHC 34.2 RDW 13.6 Plt Count 205 MPV 7.9 Neut % (Auto) 72.1 Lymph % (Auto) 9.4 L [place] % (Auto) 16.7 H Eos % (Auto) 1.7 Baso % (Auto) 0.1 Neut # (Auto) 6.8 Lymph # (Auto) 0.9 L [place] # (Auto) 1.6 H Eos # (Auto) 0.2 Baso # (Auto) 0.0 Neutrophils % (Manual) 75 Band Neutrophils % 1 Lymphocytes % (Manual) 7 L Monocytes % (Manual) 17 H Platelet Estimate Normal RBC Morphology Normal Sodium Potassium Chloride Carbon Dioxide Anion Gap BUN Creatinine Est GFR ( Amer) Est GFR (Non-Af Amer) Random Glucose Calcium Phosphorus Magnesium Total Bilirubin AST ALT Alkaline Phosphatase Total Protein Albumin Globulin Albumin/Globulin Ratio RPR Radiology Impressions: Radiology Impressions Fluoroscopy 01/07/19 16:15 IMPRESSION: Fluoroscopy provided. Critical Care Progress Note - Nutrition Nutrition: Nutrition Category Date Time Status Heart Healthy Diet [DIET] Diets 01/08/19 Dinner Active Objective - Vital Signs/Intake and Output Vital Signs (last 24 hours): Temp Pulse Resp BP Pulse Ox 98.4 F 80 14 113/49 L 100 01/08/19 16:00 01/08/19 17:10 01/08/19 17:10 01/08/19 16:59 01/08/19 17:10 Intake and Output: 01/08/19 01/08/19 06:59 18:59 Intake Total 1649 1713 Output Total 496 300 Balance 1153 1413 - Medications Medications: Current Medications Acetaminophen (Tylenol 325mg Tab) 650 mg PO Q6 [facility] Last Admin: 01/08/19 17:20 Dose: Not Given Amlodipine Besylate (Norvasc) 2.5 mg PO DAILY [facility] Last Admin: 01/08/19 09:17 Dose: 2.5 mg Clopidogrel Bisulfate (Plavix) 75 mg PO DAILY [facility] Last Admin: 01/08/19 09:18 Dose: 75 mg Diphenhydramine HCl (Benadryl) 50 mg IVP BID [facility] Last Admin: 01/07/19 12:42 Dose: Not Given Famotidine (Pepcid) 20 mg PO BID [facility] Last Admin: 01/08/19 17:21 Dose: 20 mg Hydrocortisone (Cortizone 1% Cream) 1 gm TOP BID [facility] Last Admin: 01/08/19 17:21 Dose: 1 applic Cefazolin Sodium 500 mg/ (Sodium Chloride) 50 mls @ 100 mls/hr IVPB Q8H [facility]; Protocol Last Admin: 01/08/19 10:31 Dose: 100 mls/hr Lactated Ringer's (Lactated Ringer's) 1,000 mls @ 83 mls/hr IV .Q12H3M [facility] Last Admin: 01/08/19 16:00 Dose: Not Given Levothyroxine Sodium (Synthroid) 75 mcg PO DAILY@0630 [facility] Last Admin: 01/08/19 06:43 Dose: 75 mcg Nystatin (Nystop Topical Powder) 1 applic TOP BID [facility] Last Admin: 01/08/19 17:21 Dose: 1 applic [id number] Ethyl Esters (Lovaza) 1 gm PO DAILY [facility] Last Admin: 01/08/19 11:48 Dose: 1 gm Rosuvastatin Calcium (Crestor) 5 mg PO HS [facility] Last Admin: 01/07/19 22:32 Dose: 5 mg Silver Sulfadiazine (Silvadene 1% 20 Gm) 0 ea TOP DAILY [facility] Last Admin: 01/08/19 09:18 Dose: 1 applic - Labs Labs: 01/08/19 06:02 01/08/19 06:00 PT 12.3 SECONDS (9.7-12.2) H 01/07/19 07:05 INR 1.1 01/07/19 07:05 APTT 25 SECONDS (21-34) 12/30/18 23:00
--- NOTE | 2019-01-08 18:31 | CP.PCM.PN ---
Subjective - Date & Time of Evaluation Date of Evaluation: 01/08/19 Time of Evaluation: 18:31 - Subjective Subjective: Improving well. For [facility] Objective - Vital Signs/Intake and Output Vital Signs (last 24 hours): Temp Pulse Resp BP Pulse Ox 98.4 F 86 10 L 143/53 L 100 01/08/19 16:00 01/08/19 18:10 01/08/19 18:10 01/08/19 18:00 01/08/19 18:10 Intake and Output: 01/08/19 01/08/19 11:59 23:59 Intake Total 1759 848 Output Total 266 300 Balance 1493 548 - Medications Medications: Current Medications Acetaminophen (Tylenol 325mg Tab) 650 mg PO Q6 [facility] Last Admin: 01/08/19 17:20 Dose: Not Given Amlodipine Besylate (Norvasc) 2.5 mg PO DAILY [facility] Last Admin: 01/08/19 09:17 Dose: 2.5 mg Clopidogrel Bisulfate (Plavix) 75 mg PO DAILY [facility] Last Admin: 01/08/19 09:18 Dose: 75 mg Diphenhydramine HCl (Benadryl) 50 mg IVP BID [facility] Last Admin: 01/07/19 12:42 Dose: Not Given Famotidine (Pepcid) 20 mg PO BID [facility] Last Admin: 01/08/19 17:21 Dose: 20 mg Hydrocortisone (Cortizone 1% Cream) 1 gm TOP BID [facility] Last Admin: 01/08/19 17:21 Dose: 1 applic Cefazolin Sodium 500 mg/ (Sodium Chloride) 50 mls @ 100 mls/hr IVPB Q8H [facility]; Protocol Last Admin: 01/08/19 18:22 Dose: 100 mls/hr Lactated Ringer's (Lactated Ringer's) 1,000 mls @ 83 mls/hr IV .Q12H3M [facility] Last Admin: 01/08/19 16:00 Dose: Not Given Levothyroxine Sodium (Synthroid) 75 mcg PO DAILY@0630 [facility] Last Admin: 01/08/19 06:43 Dose: 75 mcg Nystatin (Nystop Topical Powder) 1 applic TOP BID [facility] Last Admin: 01/08/19 17:21 Dose: 1 applic [id number] Ethyl Esters (Lovaza) 1 gm PO DAILY [facility] Last Admin: 01/08/19 11:48 Dose: 1 gm Rosuvastatin Calcium (Crestor) 5 mg PO HS [facility] Last Admin: 01/07/19 22:32 Dose: 5 mg Silver Sulfadiazine (Silvadene 1% 20 Gm) 0 ea TOP DAILY [facility] Last Admin: 01/08/19 09:18 Dose: 1 applic - Labs Labs: 01/08/19 06:02 01/08/19 06:00 PT 12.3 SECONDS (9.7-12.2) H 01/07/19 07:05 INR 1.1 01/07/19 07:05 APTT 25 SECONDS (21-34) 12/30/18 23:00 - Constitutional Appears: Non-toxic - Head Exam Head Exam: NORMOCEPHALIC - Eye Exam Eye Exam: Normal appearance - ENT Exam ENT Exam: Mucous Membranes Moist - Neck Exam Neck Exam: Full ROM - Respiratory Exam Respiratory Exam: Clear to Ausculation Bilateral - Cardiovascular Exam Cardiovascular Exam: REGULAR RHYTHM, +S1, +S2 - GI/Abdominal Exam GI & Abdominal Exam: Normal Bowel Sounds - Extremities Exam Extremities Exam: Normal Inspection - Neurological Exam Neurological Exam: Alert, Awake, Oriented x3 - Psychiatric Exam Psychiatric exam: Flat Affect - Skin Skin Exam: Normal Color Assessment and Plan (1) Right hand weakness Status: Acute (2) Syncope Status: Acute (3) Vomiting Status: Acute (4) CAD (coronary artery disease) Status: Chronic (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
[2019-01-09] MEDS: Levothyroxine 75 MCG TAB PO SCH (06:30)
[2019-01-09 06:34] LABS: HEMOGLOBIN 9.3 g/dL (12.0-18.0); MEAN CELL VOLUME 94.3 fL (80.0-94.0); MEAN CORPUSCULAR HEMOGLOBIN 31.5 pg (27.0-31.0); MEAN CORPUSCULAR HGB CONC 33.4 g/dL (33.0-37.0); MEAN PLATELET VOLUME 7.9 fL (7.2-11.7); RBC 2.96 Mil/uL (4.40-5.90); WHITE BLOOD COUNT 6.8 K/uL (4.8-10.8)
[2019-01-09 06:47] LABS: BLOOD UREA NITROGEN 18 mg/dL (9-20); CALCIUM 7.9 mg/dl (8.6-10.4); GFR NON-AFRICAN AMERICAN > 60
--- NOTE | 2019-01-09 08:11 | CP.PCM.PN ---
Subjective - Date & Time of Evaluation Date of Evaluation: 01/09/19 Time of Evaluation: 06:30 - Subjective Subjective: Vascular Surgery Dr. Jerry Pt seen and examined @bedside. No acute events overnight. Pt has no complaints this AM. denies F/C, abd pain, N/V, D/C. tolerating diet. (+)BM/Flatus. Objective - Vital Signs/Intake and Output Vital Signs (last 24 hours): Temp Pulse Resp BP Pulse Ox 98.9 F 85 13 127/47 L 100 01/09/19 03:53 01/09/19 03:53 01/09/19 03:29 01/09/19 03:53 01/09/19 03:53 Intake and Output: 01/09/19 01/09/19 06:59 18:59 Intake Total 500 Output Total 1800 Balance -1300 - Medications Medications: Current Medications Acetaminophen (Tylenol 325mg Tab) 650 mg PO Q6 [facility] Last Admin: 01/09/19 06:16 Dose: Not Given Amlodipine Besylate (Norvasc) 2.5 mg PO DAILY [facility] Last Admin: 01/08/19 09:17 Dose: 2.5 mg Clopidogrel Bisulfate (Plavix) 75 mg PO DAILY [facility] Last Admin: 01/08/19 09:18 Dose: 75 mg Diphenhydramine HCl (Benadryl) 50 mg IVP BID [facility] Last Admin: 01/07/19 12:42 Dose: Not Given Famotidine (Pepcid) 20 mg PO BID [facility] Last Admin: 01/08/19 17:21 Dose: 20 mg Hydrocortisone (Cortizone 1% Cream) 1 gm TOP BID [facility] Last Admin: 01/08/19 17:21 Dose: 1 applic Levothyroxine Sodium (Synthroid) 75 mcg PO DAILY@0630 [facility] Last Admin: 01/09/19 06:30 Dose: 75 mcg Nystatin (Nystop Topical Powder) 1 applic TOP BID [facility] Last Admin: 01/08/19 17:21 Dose: 1 applic [id number] Ethyl Esters (Lovaza) 1 gm PO DAILY [facility] Last Admin: 01/08/19 11:48 Dose: 1 gm Rosuvastatin Calcium (Crestor) 5 mg PO HS [facility] Last Admin: 01/08/19 22:00 Dose: 5 mg Silver Sulfadiazine (Silvadene 1% 20 Gm) 0 ea TOP DAILY [facility] Last Admin: 01/08/19 09:18 Dose: 1 applic - Labs Labs: 01/09/19 06:19 01/09/19 06:17 PT 12.3 SECONDS (9.7-12.2) H 01/07/19 07:05 INR 1.1 01/07/19 07:05 APTT 25 SECONDS (21-34) 12/30/18 23:00 - Constitutional Appears: Non-toxic, No Acute Distress - Head Exam Head Exam: NORMAL INSPECTION - Eye Exam Eye Exam: Normal appearance - ENT Exam ENT Exam: Mucous Membranes Moist - Respiratory Exam Respiratory Exam: NORMAL BREATHING PATTERN. absent: Accessory Muscle Use, Respiratory Distress - Cardiovascular Exam Cardiovascular Exam: REGULAR RHYTHM. absent: Bradycardia, Tachycardia - GI/Abdominal Exam GI & Abdominal Exam: Soft. absent: Distended, Tenderness, Rebound - Extremities Exam Extremities Exam: Normal Inspection Additional comments: groin sites c/d/i - Neurological Exam Neurological Exam: Alert, Awake - Psychiatric Exam Psychiatric exam: Normal Affect, Normal Mood - Skin Skin Exam: Dry, Intact, Normal Color, Warm Assessment and Plan - Assessment and Plan (Free Text) Assessment: 83 y/o M POD#2 s/p EVAR Plan: -Advance diet as tolerated - Monitor pulses - BP control - encourage OOb to chair/Amb/IS use - pt cleared for discharge from surgical standpoint Pt discussed w/ Dr. Rosalino Hung DO PGY3
[2019-01-09 08:17] VITALS: PULSE 83
--- NOTE | 2019-01-09 08:36 | CP.PCM.PN ---
Subjective - Date & Time of Evaluation Date of Evaluation: 01/08/19 Time of Evaluation: 17:45 - Subjective Subjective: Patient seen and evaluated denies chest pain and dyspnea s/p EVAR POD # 2 Review of Systems - Review of Systems All systems: reviewed and no additional remarkable complaints except - Constitutional Constitutional: As Per HPI Physical Exam - Constitutional Appears: Non-toxic, No Acute Distress - Head Exam Additional comments: 3 cm X 2cm cericular abrasion with some purulent discharge - Eye Exam Eye Exam: EOMI, Normal appearance - ENT Exam ENT Exam: Mucous Membranes Moist - Respiratory Exam Respiratory Exam: Clear to Auscultation Bilateral, NORMAL BREATHING PATTERN. absent: Rales, Rhonchi, Wheezes - Cardiovascular Exam Cardiovascular Exam: +S1, +S2. absent: Systolic Murmur - GI/Abdominal Exam GI & Abdominal Exam: Normal Bowel Sounds, Soft. absent: Distended - Exam Additional comments: Castro in place - Extremities Exam Extremities exam: Positive for: full ROM, normal inspection. Negative for: calf tenderness, pedal edema - Back Exam Back exam: absent: CVA tenderness (L), CVA tenderness (R) - Neurological Exam Neurological exam: Alert, Oriented x3 - Psychiatric Exam Psychiatric exam: Normal Affect, Normal Mood - Skin Skin Exam: Dry, Normal Color, Warm Additional comments: flat petechial rash in lower abdominal, groin and axilla area Objective - Vital Signs/Intake and Output Vital Signs (last 24 hours): Temp Pulse Resp BP Pulse Ox 98.5 F 83 18 130/61 100 01/09/19 08:00 01/09/19 08:00 01/09/19 08:00 01/09/19 08:00 01/09/19 08:00 Intake and Output: 01/09/19 01/09/19 06:59 18:59 Intake Total 500 Output Total 1800 Balance -1300 - Medications Medications: Current Medications Acetaminophen (Tylenol 325mg Tab) 650 mg PO Q6 [facility] Last Admin: 01/09/19 06:16 Dose: Not Given Amlodipine Besylate (Norvasc) 2.5 mg PO DAILY [facility] Last Admin: 01/08/19 09:17 Dose: 2.5 mg Clopidogrel Bisulfate (Plavix) 75 mg PO DAILY [facility] Last Admin: 01/08/19 09:18 Dose: 75 mg Diphenhydramine HCl (Benadryl) 50 mg IVP BID [facility] Last Admin: 01/07/19 12:42 Dose: Not Given Famotidine (Pepcid) 20 mg PO BID [facility] Last Admin: 01/08/19 17:21 Dose: 20 mg Hydrocortisone (Cortizone 1% Cream) 1 gm TOP BID [facility] Last Admin: 01/08/19 17:21 Dose: 1 applic Levothyroxine Sodium (Synthroid) 75 mcg PO DAILY@0630 [facility] Last Admin: 01/09/19 06:30 Dose: 75 mcg Nystatin (Nystop Topical Powder) 1 applic TOP BID [facility] Last Admin: 01/08/19 17:21 Dose: 1 applic [id number] Ethyl Esters (Lovaza) 1 gm PO DAILY [facility] Last Admin: 01/08/19 11:48 Dose: 1 gm Rosuvastatin Calcium (Crestor) 5 mg PO HS [facility] Last Admin: 01/08/19 22:00 Dose: 5 mg Silver Sulfadiazine (Silvadene 1% 20 Gm) 0 ea TOP DAILY [facility] Last Admin: 01/08/19 09:18 Dose: 1 applic - Labs Labs: 01/09/19 06:19 01/09/19 06:17 PT 12.3 SECONDS (9.7-12.2) H 01/07/19 07:05 INR 1.1 01/07/19 07:05 APTT 25 SECONDS (21-34) 12/30/18 23:00 Assessment and Plan - Assessment and Plan (Free Text) Assessment: 83 M w/ PMhx of HTN, CVA,visual impairment & cardiac disease presents s/p syncpe likely secondary to gatroenteritis, found to have multiple abdominal aortic aneyursm. Patient is POD # 1 s/p EVAR w/ stents. Currently in ICU 1) Abdominal aortic aneurysm 2) Hypertension 3) CANDIDAL RASH Plan: Neuro - A&O x3 - hx of macular degeneration Cardio - Hx of HTN, CABG, cardiac disease - C/w clopidogrel 75 mg daily, amlodipine 2.5 mg PO daily, rosuvastatin 5 mg HS Pulm - vitals wnl - continue to monitor GI - heart healthy diet Renal - BUN/Cr stable 27/0.9 - LR @83 mls/hr Endo - hx of hypothyrodism - c/w levothyroxine 75 mcg daily Heme - H/H stable pre-op, post op 2 point drop post op - AM labs stable - WBC elevated post op, likely reactive - cefazolin prophylactically per surgery - tylenol 650 mg PO Q6H per surgery - nystatin 1 applic top bid - hydrocortisone 1% BID PPx - GI: Pepcid 20 mg PO BID - DVT: per surgery
--- NOTE | 2019-01-09 09:46 | CP.PCM.DIS ---
Provider - Provider Date of Admission: 01/01/19 14:36 Attending physician: Germán Olvera MD Consults: 12/31/18 08:00 Nursing Referral for Wound Care Routine Comment: Physician Instructions: Reason For Exam: scalp wound(abrasions) 12/31/18 11:22 Neurology Consult Routine Comment: Consulting Provider: Truong Palma Consulting Physician: Truong Palma Reason for Consult: deficit in the rt upper limb (hx of pacemaker, Paget dz) 12/31/18 13:47 Cardiology Consult Routine Comment: syncope Consulting Provider: Daiana Harden Consulting Physician: Daiana Harden Reason for Consult: syncope 01/01/19 14:34 Vascular Surgery Routine Comment: Consulting Provider: Alireza Jerry Jr. Physician Instructions: Reason For Exam: severe infrarenal aneurysm 01/03/19 08:21 Gastroenterology Consult Routine Comment: Consulting Provider: Lazaro Del Toro Consulting Physician: Lazaro Del Toro Reason for Consult: colitis 01/06/19 11:23 Pastoral Care Referral Routine Comment: Physician Instructions: Reason For Exam: ashes if possible, thank you! 01/07/19 06:23 Infectious Disease Consult Routine Comment: Consulting Provider: Jerald Llamas Consulting Physician: Jerald Llamas Reason for Consult: intertrigo Time Spent in preparation of Discharge (in minutes): 30 Diagnosis - Discharge Diagnosis (1) Right hand weakness Status: Acute (2) Syncope Status: Acute (3) Vomiting Status: Acute (4) CAD (coronary artery disease) Status: Chronic (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 Hospital Course - Lab Results Lab Results: Micro Results 12/31/18 02:00 Blood Blood Culture - Final NO GROWTH AFTER 5 DAYS 12/31/18 02:00 Blood Gram Stain - Final TEST NOT PERFORMED 12/31/18 01:58 Blood Blood Culture - Final NO GROWTH AFTER 5 DAYS 12/31/18 01:58 Blood Gram Stain - Final TEST NOT PERFORMED Most Recent Lab Values WBC 6.8 K/uL (4.8-10.8) 01/09/19 06:19 RBC 2.96 Mil/uL (4.40-5.90) L 01/09/19 06:19 Hgb 9.3 g/dL (12.0-18.0) L 01/09/19 06:19 Hct 27.9 % (35.0-51.0) L 01/09/19 06:19 MCV 94.3 fL (80.0-94.0) H 01/09/19 06:19 MCH 31.5 pg (27.0-31.0) H 01/09/19 06:19 MCHC 33.4 g/dL (33.0-37.0) 01/09/19 06:19 RDW 14.0 % (11.5-14.5) 01/09/19 06:19 Plt Count 156 K/uL (130-400) 01/09/19 06:19 MPV 7.9 fL (7.2-11.7) 01/09/19 06:19 Neut % (Auto) 72.1 % (50.0-75.0) 01/08/19 06:02 Lymph % (Auto) 9.4 % (20.0-40.0) L 01/08/19 06:02 Stanton % (Auto) 16.7 % (0.0-10.0) H 01/08/19 06:02 Eos % (Auto) 1.7 % (0.0-4.0) 01/08/19 06:02 Baso % (Auto) 0.1 % (0.0-2.0) 01/08/19 06:02 Neut # (Auto) 6.8 K/uL (1.8-7.0) 01/08/19 06:02 Lymph # (Auto) 0.9 K/uL (1.0-4.3) L 01/08/19 06:02 Stanton # (Auto) 1.6 K/uL (0.0-0.8) H 01/08/19 06:02 Eos # (Auto) 0.2 K/uL (0.0-0.7) 01/08/19 06:02 Baso # (Auto) 0.0 K/uL (0.0-0.2) 01/08/19 06:02 Neutrophils % (Manual) 75 % (50-75) 01/08/19 06:02 Band Neutrophils % 1 % (0-2) 01/08/19 06:02 Lymphocytes % (Manual) 7 % (20-40) L 01/08/19 06:02 Monocytes % (Manual) 17 % (0-10) H 01/08/19 06:02 Eosinophils % (Manual) 1 % (0-4) 12/30/18 23:00 Differential Comment 01/02/19 08:22 Platelet Estimate Normal (NORMAL) 01/08/19 06:02 Large Platelets Present 12/30/18 23:00 RBC Morphology Normal 01/08/19 06:02 Hypochromasia (manual) Slight 12/30/18 23:00 Microcytosis (manual) Slight 12/30/18 23:00 Ovalocytes Slight 12/30/18 23:00 PT 12.3 SECONDS (9.7-12.2) H 01/07/19 07:05 INR 1.1 01/07/19 07:05 APTT 25 SECONDS (21-34) 12/30/18 23:00 Sodium 135 mmol/L (132-148) 01/09/19 06:17 Potassium 4.6 mmol/L (3.6-5.2) 01/09/19 06:17 Chloride 102 mmol/L (98-107) 01/09/19 06:17 Carbon Dioxide 28 mmol/L (22-30) 01/09/19 06:17 Anion Gap 9 (10-20) L 01/09/19 06:17 BUN 18 mg/dL (9-20) 01/09/19 06:17 Creatinine 0.8 mg/dL (0.8-1.5) 01/09/19 06:17 Est GFR ( Amer) > 60 01/09/19 06:17 Est GFR (Non-Af Amer) > 60 01/09/19 06:17 POC Glucose (mg/dL) 96 mg/dL (65-110) 12/30/18 22:29 Random Glucose 104 mg/dL (75-110) D 01/09/19 06:17 Calcium 7.9 mg/dl (8.6-10.4) L 01/09/19 06:17 Phosphorus 2.8 mg/dL (2.5-4.5) 01/09/19 06:17 Magnesium 2.5 mg/dL (1.6-2.3) H 01/09/19 06:17 Total Bilirubin 0.5 mg/dL (0.2-1.3) 01/08/19 06:00 AST 58 U/L (17-59) 01/08/19 06:00 ALT 56 U/L (21-72) 01/08/19 06:00 Alkaline Phosphatase 62 U/L (38-126) 01/08/19 06:00 Troponin I < 0.0120 ng/mL (0.00-0.120) 12/31/18 11:13 Total Protein 5.2 g/dL (6.3-8.3) L 01/08/19 06:00 Albumin 3.0 g/dL (3.5-5.0) L 01/08/19 06:00 Globulin 2.3 gm/dL (2.2-3.9) 01/08/19 06:00 Albumin/Globulin Ratio 1.3 (1.0-2.1) 01/08/19 06:00 Amylase 36 U/L (30-110) 01/01/19 11:31 Lipase < 10 U/L (23-300) L 01/01/19 11:31 TSH 3rd Generation 2.06 mIU/L (0.46-4.68) 12/31/18 11:13 Urine Color Yellow (YELLOW) 12/31/18 00:35 Urine Clarity Hazy (Clear) 12/31/18 00:35 Urine pH 6.0 (5.0-8.0) 12/31/18 00:35 Ur Specific [place] 1.018 (1.003-1.030) 12/31/18 00:35 Urine Protein 2+ mg/dL (NEGATIVE) H 12/31/18 00:35 Urine Glucose (UA) Normal mg/dL (Normal) 12/31/18 00:35 Urine Ketones Trace mg/dL (NEGATIVE) 12/31/18 00:35 Urine Blood Negative (NEGATIVE) 12/31/18 00:35 Urine Nitrate Negative (NEGATIVE) 12/31/18 00:35 Urine Bilirubin Negative (NEGATIVE) 12/31/18 00:35 Urine Urobilinogen Normal mg/dL (0.2-1.0) 12/31/18 00:35 Ur Leukocyte Esterase Neg Irene/uL (Negative) 12/31/18 00:35 Urine WBC (Auto) 1 /hpf (0-5) 12/31/18 00:35 Urine RBC (Auto) 5 /hpf (0-3) H 12/31/18 00:35 Hyaline Casts 3-5 /lpf (0-2) H 12/31/18 00:35 RPR Nonreactive (NONREACTIVE) 01/08/19 06:00 C. difficile Ag & Toxin Negative (NEGATIVE) 01/02/19 15:30 Blood Type A POSITIVE 01/06/19 17:03 Blood Type Confirm A POSITIVE 01/06/19 17:03 Antibody Screen Negative 01/06/19 17:03 - Hospital Course Hospital Course: 83 year old male presented in ER with an episode of pre syncope with no loss of conscience. As per , she cooked liver for lunch and they both ate it. Patient started vomiting a few hours later and while she was cleaning up after him in the living room, she heard a big thump in the other room. reports patient fainted and hit head sustaining abrasion. Patient is currently asymptomatic. Patient denies any headache, dizziness, nausea, vomiting, light headedness, abdominal pain, urinary symptoms, or any other complaints. is concerned because patient has a hx of cardiac disease and bypass surgery. also experienced similar GI symptoms. During hospitalization a ct scan reveled a large aneurism in the aorta. Patient underwent to a repair of the aneurism. He will be transfer to TCU for further rx. Discharge Exam - Head Exam Head Exam: NORMAL INSPECTION - Eye Exam Eye Exam: Normal appearance - ENT Exam ENT Exam: Mucous Membranes Moist - Neck Exam Neck exam: Full Rom - Respiratory Exam Respiratory Exam: Clear to PA & Lateral - Cardiovascular Exam Cardiovascular Exam: REGULAR RHYTHM, +S1, +S2 - GI/Abdominal Exam GI & Abdominal Exam: Normal Bowel Sounds - Extremities Exam Extremities exam: normal inspection - Neurological Exam Neurological exam: Alert, CN II-XII Intact, Oriented x3, Reflexes Normal - Psychiatric Exam Psychiatric exam: Flat Affect - Skin Skin Exam: Normal Color Discharge Plan - Follow Up Plan Condition: STABLE Disposition: HOME/ ROUTINE
[2019-01-09] MEDS: Omega-3-Acid Ethyl Esters 1 GM Cap PO SCH (09:49)
[2019-01-09] MEDS: Silver Sulfadiazine 1% Cream (20 gm) TOP SCH (09:50)
[2019-01-09] MEDS: Hydrocortisone 1% Cream (30 GM) TOP SCH (09:51)
[2019-01-09] MEDS ORDERED: Magnesium Citrate Oral SOL (300 ml) PO ONE (11:15)
[2019-01-09 12:15] VITALS: BP 136/62; RESP 16; TEMP 97.6; O2SAT 97
--- NOTE | 2019-01-09 12:48 | CP.PCM.PN ---
Subjective - Date & Time of Evaluation Date of Evaluation: 01/09/19 Time of Evaluation: 12:45 - Subjective Subjective: COVERING DR MCLEOD/ZULEYMA Patient reports he is still constipated. No pain, N/V. Discharge pending. Objective - Vital Signs/Intake and Output Vital Signs (last 24 hours): Temp Pulse Resp BP Pulse Ox 97.6 F 83 16 136/62 97 01/09/19 12:00 01/09/19 12:00 01/09/19 12:00 01/09/19 12:00 01/09/19 12:00 Intake and Output: 01/09/19 01/09/19 06:59 18:59 Intake Total 500 360 Output Total 1800 825 Balance -1300 -465 - Medications Medications: Current Medications Acetaminophen (Tylenol 325mg Tab) 650 mg PO Q6 [facility] Last Admin: 01/09/19 12:14 Dose: Not Given Amlodipine Besylate (Norvasc) 2.5 mg PO DAILY [facility] Last Admin: 01/09/19 09:49 Dose: 2.5 mg Clopidogrel Bisulfate (Plavix) 75 mg PO DAILY [facility] Last Admin: 01/09/19 09:49 Dose: 75 mg Diphenhydramine HCl (Benadryl) 50 mg IVP BID [facility] Last Admin: 01/07/19 12:42 Dose: Not Given Famotidine (Pepcid) 20 mg PO BID [facility] Last Admin: 01/09/19 09:49 Dose: 20 mg Hydrocortisone (Cortizone 1% Cream) 1 gm TOP BID [facility] Last Admin: 01/09/19 09:51 Dose: 1 applic Levothyroxine Sodium (Synthroid) 75 mcg PO DAILY@0630 [facility] Last Admin: 01/09/19 06:30 Dose: 75 mcg Nystatin (Nystop Topical Powder) 1 applic TOP BID [facility] Last Admin: 01/09/19 09:50 Dose: 1 applic [id number] Ethyl Esters (Lovaza) 1 gm PO DAILY [facility] Last Admin: 01/09/19 09:49 Dose: 1 gm Rosuvastatin Calcium (Crestor) 5 mg PO HS [facility] Last Admin: 01/08/19 22:00 Dose: 5 mg Silver Sulfadiazine (Silvadene 1% 20 Gm) 0 ea TOP DAILY [facility] Last Admin: 01/09/19 09:50 Dose: 1 applic - Labs Labs: 01/09/19 06:19 01/09/19 06:17 PT 12.3 SECONDS (9.7-12.2) H 01/07/19 07:05 INR 1.1 01/07/19 07:05 APTT 25 SECONDS (21-34) 12/30/18 23:00 - Constitutional Appears: No Acute Distress - Respiratory Exam Respiratory Exam: NORMAL BREATHING PATTERN - Cardiovascular Exam Cardiovascular Exam: REGULAR RHYTHM - GI/Abdominal Exam GI & Abdominal Exam: Soft. absent: Distended, Tenderness, Mass, Normal Bowel Sounds, Rebound Assessment and Plan (1) Constipation Assessment & Plan: Continue supportive care and avoid laxatives following recent enteritis. Colace and Miralax prn if needed. Status: Chronic (2) Enteritis Assessment & Plan: resolved Status: Resolved
--- NOTE | 2019-01-10 12:03 | CP.PCM.PN ---
Subjective - Date & Time of Evaluation Date of Evaluation: 01/09/19 Time of Evaluation: 13:10 - Subjective Subjective: Patient seen and evaluated denies chest pain and dyspnea s/p EVAR POD # 3 Review of Systems - Review of Systems All systems: reviewed and no additional remarkable complaints except - Constitutional Constitutional: As Per HPI Physical Exam - Constitutional Appears: Non-toxic, No Acute Distress - Head Exam Additional comments: 3 cm X 2cm cericular abrasion with some purulent discharge - Eye Exam Eye Exam: EOMI, Normal appearance - ENT Exam ENT Exam: Mucous Membranes Moist - Respiratory Exam Respiratory Exam: Clear to Auscultation Bilateral, NORMAL BREATHING PATTERN. absent: Rales, Rhonchi, Wheezes - Cardiovascular Exam Cardiovascular Exam: +S1, +S2. absent: Systolic Murmur - GI/Abdominal Exam GI & Abdominal Exam: Normal Bowel Sounds, Soft. absent: Distended - Exam Additional comments: Castro in place - Extremities Exam Extremities exam: Positive for: full ROM, normal inspection. Negative for: calf tenderness, pedal edema - Back Exam Back exam: absent: CVA tenderness (L), CVA tenderness (R) - Neurological Exam Neurological exam: Alert, Oriented x3 - Psychiatric Exam Psychiatric exam: Normal Affect, Normal Mood - Skin Skin Exam: Dry, Normal Color, Warm Additional comments: flat petechial rash in lower abdominal, groin and axilla area Objective - Vital Signs/Intake and Output Vital Signs (last 24 hours): Temp Pulse Resp BP Pulse Ox 98.5 F 83 18 130/61 100 01/09/19 08:00 01/09/19 08:00 01/09/19 08:00 01/09/19 08:00 01/09/19 08:00 Intake and Output: 01/09/19 01/09/19 06:59 18:59 Intake Total 500 Output Total 1800 Balance -1300 - Medications Medications: Current Medications Acetaminophen (Tylenol 325mg Tab) 650 mg PO Q6 [facility] Last Admin: 01/09/19 06:16 Dose: Not Given Amlodipine Besylate (Norvasc) 2.5 mg PO DAILY [facility] Last Admin: 01/08/19 09:17 Dose: 2.5 mg Clopidogrel Bisulfate (Plavix) 75 mg PO DAILY [facility] Last Admin: 01/08/19 09:18 Dose: 75 mg Diphenhydramine HCl (Benadryl) 50 mg IVP BID [facility] Last Admin: 01/07/19 12:42 Dose: Not Given Famotidine (Pepcid) 20 mg PO BID [facility] Last Admin: 01/08/19 17:21 Dose: 20 mg Hydrocortisone (Cortizone 1% Cream) 1 gm TOP BID [facility] Last Admin: 01/08/19 17:21 Dose: 1 applic Levothyroxine Sodium (Synthroid) 75 mcg PO DAILY@0630 [facility] Last Admin: 01/09/19 06:30 Dose: 75 mcg Nystatin (Nystop Topical Powder) 1 applic TOP BID [facility] Last Admin: 01/08/19 17:21 Dose: 1 applic Gaiew-7-Xjco Ethyl Esters (Lovaza) 1 gm PO DAILY [facility] Last Admin: 01/08/19 11:48 Dose: 1 gm Rosuvastatin Calcium (Crestor) 5 mg PO HS [facility] Last Admin: 01/08/19 22:00 Dose: 5 mg Silver Sulfadiazine (Silvadene 1% 20 Gm) 0 ea TOP DAILY [facility] Last Admin: 01/08/19 09:18 Dose: 1 applic - Labs Labs: 01/09/19 06:19 01/09/19 06:17 PT 12.3 SECONDS (9.7-12.2) H 01/07/19 07:05 INR 1.1 01/07/19 07:05 APTT 25 SECONDS (21-34) 12/30/18 23:00 Assessment and Plan - Assessment and Plan (Free Text) Assessment: 83 M w/ PMhx of HTN, CVA,visual impairment & cardiac disease presents s/p syncpe likely secondary to gatroenteritis, found to have multiple abdominal aortic aneyursm. Patient is POD # 1 s/p EVAR w/ stents. Currently in ICU 1) Abdominal aortic aneurysm 2) Hypertension 3) CANDIDAL RASH Plan: Neuro - A&O x3 - hx of macular degeneration Cardio - Hx of HTN, CABG, cardiac disease - C/w clopidogrel 75 mg daily, amlodipine 2.5 mg PO daily, rosuvastatin 5 mg HS Pulm - vitals wnl - continue to monitor GI - heart healthy diet Renal - BUN/Cr stable 27/0.9 - LR @83 mls/hr Endo - hx of hypothyrodism - c/w levothyroxine 75 mcg daily Heme - H/H stable pre-op, post op 2 point drop post op - AM labs stable - WBC elevated post op, likely reactive - cefazolin prophylactically per surgery - tylenol 650 mg PO Q6H per surgery - nystatin 1 applic top bid - hydrocortisone 1% BID PPx - GI: Pepcid 20 mg PO BID - DVT: per surgery For Rehab transfer today Objective - Vital Signs/Intake and Output Vital Signs (last 24 hours): Temp Pulse Resp BP Pulse Ox 97.6 F 83 16 136/62 97 01/09/19 12:00 01/09/19 12:00 01/09/19 12:00 01/09/19 12:00 01/09/19 12:00 - Labs Labs: 01/09/19 06:19 01/09/19 06:17 PT 12.3 SECONDS (9.7-12.2) H 01/07/19 07:05 INR 1.1 01/07/19 07:05 APTT 25 SECONDS (21-34) 12/30/18 23:00
== END 2019-01-09 15:43 | DRG 269 ==
LOC: EDBD 22:24 → C.ER 22:24 → C.3T 12-31 01:03 → OBSVTOIN 01-01 14:36 → C.6T 01-01 17:23 → C.9I 01-07 14:15
PROVIDERS: ADMIT Internal Medicine; ATTEND Internal Medicine
PROC: 04V03DZ Restriction of Abdominal Aorta with Intraluminal Device, Percutaneous Approach (ICD-10-PCS; principal; 2019-01-07 11:00)
DX: I71.4 Abdominal aortic aneurysm, without rupture (principal); I71.2 Thoracic aortic aneurysm, without rupture; S00.01XA Abrasion of scalp, initial encounter; K52.9 Noninfective gastroenteritis and colitis, unspecified; R55 Syncope and collapse; I25.10 Atherosclerotic heart disease of native coronary artery without angina pectoris; I10 Essential (primary) hypertension; N28.9 Disorder of kidney and ureter, unspecified; D72.819 Decreased white blood cell count, unspecified; B37.2 Candidiasis of skin and nail; E03.9 Hypothyroidism, unspecified; E78.5 Hyperlipidemia, unspecified; M88.9 Osteitis deformans of unspecified bone; L30.4 Erythema intertrigo; G62.9 Polyneuropathy, unspecified; K59.09 Other constipation; H35.30 Unspecified macular degeneration; H54.8 Legal blindness, as defined in USA; W19.XXXA Unspecified fall, initial encounter; Z95.0 Presence of cardiac pacemaker; Z95.1 Presence of aortocoronary bypass graft; Z86.73 Personal history of transient ischemic attack (TIA), and cerebral infarction without residual deficits; Z87.891 Personal history of nicotine dependence; Z90.49 Acquired absence of other specified parts of digestive tract